=== PATIENT | female | born 1970 | race Caucasian/White ===

== ENCOUNTER 2021-11-29 07:59 | Inpatient (IN) | payer BC ==
--- NOTE | 2021-11-29 08:04 | ERPHSYRPT ---
- History of Present Illness Time Seen by Provider: 11/29/21 08:04 Source: patient Exam Limitations: clinical condition Physician History: This is a morbidly obese 51-year-old insulin-dependent diabetic female with hypothyroidism and depression and who states that her insulin pump is not working. She, for the last several days, has known that her insulin pump has not been working. She has insulin at home but states that she was to fatigue to get up and obtain it and states that her would not bring it to her. Her condition worsened in terms of vomiting, worsening weakness and now with confusion. Patient was brought into the emergency department via EMS. Her Accu-Chek read "high". Timing/Duration: day(s) (Several days) Severity: moderate Associated Symptoms: nausea, vomiting, shortness of breath, weakness Allergies/Adverse Reactions: No Known Drug Allergies Allergy (Verified 11/29/21 08:13) Home Medications: Hydrocodone/Acetaminophen [Hydrocodone-Acetamin 5-325 mg] 1 tab PO Q6H 11/29/21 [History] Insulin Lispro [Humalog] 0 unit SQ UD 11/29/21 [History] Levothyroxine Sodium [Euthyrox] 200 mcg PO DAILY 11/29/21 [History] Paroxetine HCl 20 mg [Paxil 20 MG] 20 mg PO DAILY 11/29/21 [History] Semaglutide [Ozempic] 0.5 mg SQ WEEKLY 11/29/21 [History] Travel Risk - International Travel Have you traveled outside of the country in past 3 weeks: No - Coronavirus Screening Are you exhibiting any of the following symptoms?: No Close contact with a COVID-19 positive Pt in past 14-21 Days: No - Review of Systems Constitutional: Lethargy, Weakness Eyes: No Symptoms Ears, Nose, & Throat: No Symptoms Respiratory: No Symptoms Cardiac: No Symptoms Abdominal/Gastrointestinal: Nausea, Vomiting, No Abdominal Pain Genitourinary Symptoms: No Symptoms Musculoskeletal: No Symptoms Skin: No Symptoms Neurological: No Symptoms Psychological: No Symptoms Endocrine: No Symptoms Hematologic/Lymphatic: No Symptoms Immunological/Allergic: No Symptoms All Other Systems: Reviewed and Negative - Past Medical History Pertinent Past Medical History: Yes - Past Surgical History Past Surgical History: Yes - Nursing Vital Signs Nursing Vital Signs: Initial Vital Signs Temperature 97.7 F 11/29/21 08:03 Pulse Rate 143 H 11/29/21 08:03 Blood Pressure 140/73 11/29/21 08:03 O2 Sat by Pulse Oximetry 100 11/29/21 08:03 Pain Scale Pain Intensity 0 - Physical Exam General Appearance: moderate distress, alert, lethargy, obese Eye Exam: PERRL/EOMI, eyes nml inspection Ears, Nose, Throat Exam: dry mucous membranes Neck Exam: normal inspection, non-tender, supple, full range of motion Respiratory Exam: normal breath sounds, lungs clear, respiratory distress, airway intact, No chest tenderness Cardiovascular Exam: tachycardia Gastrointestinal/Abdomen Exam: soft, normal bowel sounds Pelvic Exam: not done Rectal Exam: not done Back Exam: normal inspection, normal range of motion, No CVA tenderness, No vertebral tenderness Extremity Exam: normal inspection, normal range of motion, pelvis stable Neurologic Exam: cooperative, 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 no acute ischemic changes) Ordered Tests: Active Orders 24 hr Category Date Time Status [employer] STAT Care 11/29/21 08:24 Active EKG-ER Only STAT Care 11/29/21 08:24 Active Mejia [Catheter-[place] Mejia] STAT Care 11/29/21 08:26 Active IV Insertion STAT Care 11/29/21 08:24 Active POCT Glucose Check STAT Care 11/29/21 11:00 Active Pulse Oximetry (ED) STAT Care 11/29/21 08:24 Active ABG [ARTERIAL BLOOD GASES] Routine Lab 11/29/21 17:00 Ordered ABG [ARTERIAL BLOOD GASES] Routine Lab 11/30/21 05:00 Ordered ARTERIAL BLOOD GASES Urgent Lab 11/29/21 10:56 Completed CBC W DIFF Stat Lab 11/29/21 08:57 Results CMP Stat Lab 11/29/21 08:57 Completed Lactic Acid Urgent Lab 11/29/21 08:57 Completed Lactic Acid Urgent Lab 11/29/21 10:56 Completed MAGNESIUM Stat Lab 11/29/21 08:57 Completed Manual Differential NC Stat Lab 11/29/21 08:57 Results POCT GLUCOSE Stat Lab 11/29/21 10:59 Completed POCT GLUCOSE Stat Lab 11/29/21 12:43 Completed Pathologist Review Stat Lab 11/29/21 08:57 Results T4 (Thyroxine) Stat Lab 11/29/21 08:57 Completed TROPONIN Q3H Lab 11/29/21 08:57 Completed TROPONIN Q3H Lab 11/29/21 13:15 Ordered TROPONIN Q3H Lab 11/29/21 16:15 Ordered TROPONIN Q3H Lab 11/29/21 19:15 Ordered TROPONIN Q3H Lab 11/29/21 22:15 Ordered TSH [TSH, 3RD Generation] Stat Lab 11/29/21 08:57 Completed UA W/RFX UR CULTURE Stat Lab 11/29/21 09:36 Completed VBG [VENOUS BLOOD GAS] Stat Lab 11/29/21 09:07 Completed Medication Summary Discontinued Medications Generic Name Dose Route Start Last Admin Trade Name Freq PRN Reason Stop Dose Admin Sodium Chloride 1,000 mls @ 999 mls/hr 11/29/21 08:24 11/29/21 09:56 Sodium Chloride 0.9% 1000 Ml IV 11/29/21 09:24 Infused .Q1H1M STA Infusion Sodium Chloride Confirm 11/29/21 08:45 Sodium Chloride 0.9% 1000 Ml Administered 11/29/21 08:46 Dose 1,000 mls @ ud .ROUTE .STK-MED ONE Meropenem 1 g/ Sodium Chloride 100 mls @ 200 mls/hr 11/29/21 09:06 11/29/21 09:21 IV 11/29/21 09:35 200 mls/hr STAT ONE Administration Sodium Chloride Confirm 11/29/21 09:18 Sodium Chloride 100ml Mini-Bag Plus Administered 11/29/21 09:19 Dose 100 mls @ ud IV .STK-MED ONE Sodium Chloride 1,000 mls @ 999 mls/hr 11/29/21 10:10 Sodium Chloride 0.9% 1000 Ml IV 11/29/21 11:10 .Q1H1M STA Sodium Chloride Confirm 11/29/21 10:12 Sodium Chloride 0.9% 1000 Ml Administered 11/29/21 10:13 Dose 1,000 mls @ ud .ROUTE .STK-MED ONE Insulin Human Regular 100 101 mls @ ud 11/29/21 11:08 units/ Sodium Chloride IV 11/29/21 11:09 .STK-MED ONE Sodium Chloride Confirm 11/29/21 11:11 Sodium Chloride 0.9% 1000 Ml Administered 11/29/21 11:12 Dose 1,000 mls @ ud .ROUTE .STK-MED ONE Insulin Human Regular 20 unit 11/29/21 09:14 11/29/21 09:24 Insulin Regular, Human 1 Unit IV 11/29/21 09:15 20 unit STAT ONE Administration Insulin Human Regular Confirm 11/29/21 09:18 Insulin Regular, Human 1 Unit Administered 11/29/21 09:19 Dose 20 unit .ROUTE .STK-MED ONE Insulin Human Regular Confirm 11/29/21 11:11 Insulin Regular, Human 1 Unit Administered 11/29/21 11:12 Dose 10 unit .ROUTE .STK-MED ONE Meropenem Confirm 11/29/21 09:18 Meropenem 1 Gm Vial Administered 11/29/21 09:19 Dose 1 g IV .STK-MED ONE Metoprolol Tartrate 5 mg 11/29/21 09:12 11/29/21 09:21 Metoprolol Tartrate 5 Mg/5 Ml Injection IV 11/29/21 09:13 5 mg STAT ONE Administration Metoprolol Tartrate Confirm 11/29/21 09:18 Metoprolol Tartrate 5 Mg/5 Ml Injection Administered 11/29/21 09:19 Dose 5 mg IV .STK-MED ONE Ondansetron HCl 4 mg 11/29/21 08:24 Ondansetron Hcl 4 Mg/2 Ml Vial IV 11/29/21 08:25 STAT ONE Sodium Bicarbonate 50 meq 11/29/21 09:05 11/29/21 09:23 Sodium Bicarbonate 1 Meq/Ml 50ml Syringe IV 11/29/21 09:06 50 meq STAT ONE Administration Sodium Bicarbonate Confirm 11/29/21 09:18 Sodium Bicarbonate 1 Meq/Ml 50ml Vial Administered 11/29/21 09:19 Dose 50 meq .ROUTE .STK-MED ONE Sodium Bicarbonate Confirm 11/29/21 09:23 Sodium Bicarbonate 1 Meq/Ml 50ml Syringe Administered 11/29/21 09:24 Dose 50 meq IV .STK-MED ONE Lab/Rad Data: Laboratory Result Diagrams 11/29/21 08:57 11/29/21 08:57 Laboratory Results 01/20/22 01/20/22 01/20/22 Range/Units 12:43 10:59 10:56 WBC (4.0-10.5) K/mm3 RBC (4.1-5.4) M/mm3 Hgb (12.0-16.0) gm/dl Hct (35-47) % MCV (78-100) fl MCH (26-32) pg MCHC (32-36) g/dl RDW (11.5-14.0) % Plt Count (150-450) K/mm3 MPV (7.5-11.0) fl Segmented Neutrophils (36.0-66.0) % Band Neutrophils (0.0-2.0) % Lymphocytes (Manual) (24-44) % Monocytes (Manual) (0.0-12.0) % Toxic Granulation Platelet Estimate (NORMAL) RBC Morphology Anisocytosis Smear Path Review Puncture Site RIGHT RADIAL pCO2 15 L* (35-45) mmHg pO2 124 H* (75-100) mmHg pO2/FiO2 Ratio % Base Excess -23.8 L (-2.0-2.0) O2 Saturation 97.3 (94-100) g/dF ABG pH 7.07 L* (7.35-7.45) ABG HCO3 4.3 L* (22-28) ABG O2 Sat (Measured) 98.9 (95-100) % Bobby Test YES VBG pH (7.32-7.42) VBG pCO2 at Pat Temp (42-55) mm/Hg VBG pO2 at Pat Temp (25-40) mm/Hg VBG HCO3 (22-28) meq/L VBG O2 Sat (Nain) (95-100) VBG Base Excess (-2.0-2.0) VBG Hemoglobin VBG Carboxyhemoglobin (0.0-6.9) % T HGB A-a Gradient 7 a/A Ratio 0.95 Hemoglobin 14.0 Carboxyhemoglobin 0.5 (0.0-6.9) % THgb Methemoglobin 1.0 L (1.4-1.5) % POC Potassium (3.5-5.1) Temperature 37.0 C POC O2 Flow Rate 21 % Sodium (137-145) mmol/L Potassium 4.1 (3.5-5.1) mmol/L Chloride (98-107) mmol/L Carbon Dioxide (22-30) mmol/L BUN (7-17) mg/dL Creatinine (0.52-1.04) mg/dL Estimated GFR ML/MIN Glucose (74-106) mg/dL POC Glucometer 427 H 520 H* (50 to 500) mg/dL Lactic Acid 4.1 H (0.4-2.0) Calcium (8.4-10.2) mg/dL Magnesium (1.6-2.3) mg/dL Total Bilirubin (0.2-1.3) mg/dL AST (14-36) U/L ALT (0-35) U/L Alkaline Phosphatase (38-126) U/L Troponin I (0.000-0.034) ng/mL Serum Total Protein (6.3-8.2) g/dL Albumin (3.5-5.0) g/dL Thyroxine (T4) (5.53-10.96) ug/dL TSH 3rd Generation (0.47-4.68) mIU/L Urine Color (YELLOW) Urine Appearance (CLEAR) Urine pH (5-6) Ur Specific [place] (1.005-1.025) Urine Protein (Negative) Urine Ketones (NEGATIVE) Urine Blood (0-5) Mao/ul Urine Nitrite (NEGATIVE) Urine Bilirubin (NEGATIVE) Urine Urobilinogen (0-1) mg/dL Ur Leukocyte Esterase (NEGATIVE) Urine WBC (Auto) (0-5) /HPF Urine RBC (Auto) (0-2) /HPF U Epithel Cells (Auto) (FEW) /HPF Urine Bacteria (Auto) (NEGATIVE) /HPF Urine Mucus (Auto) (NEGATIVE) /HPF Urine Culture Reflexed (NO) Urine Glucose (NEGATIVE) mg/dL Influenza Type A Ag (NEGATIVE) Influenza Type B Ag (NEGATIVE) RSV (PCR) (Negative) SARS-CoV-2 (PCR) (NEGATIVE) 11/29/21 11/29/21 11/29/21 Range/Units 10:51 09:36 09:07 WBC (4.0-10.5) K/mm3 RBC (4.1-5.4) M/mm3 Hgb (12.0-16.0) gm/dl Hct (35-47) % MCV (78-100) fl MCH (26-32) pg MCHC (32-36) g/dl RDW (11.5-14.0) % Plt Count (150-450) K/mm3 MPV (7.5-11.0) fl Segmented Neutrophils (36.0-66.0) % Band Neutrophils (0.0-2.0) % Lymphocytes (Manual) (24-44) % Monocytes (Manual) (0.0-12.0) % Toxic Granulation Platelet Estimate (NORMAL) RBC Morphology Anisocytosis Smear Path Review Puncture Site pCO2 (35-45) mmHg pO2 (75-100) mmHg pO2/FiO2 Ratio 21.0 % Base Excess (-2.0-2.0) O2 Saturation (94-100) g/dF ABG pH (7.35-7.45) ABG HCO3 (22-28) ABG O2 Sat (Measured) (95-100) % Bobby Test VBG pH 6.83 L* (7.32-7.42) VBG pCO2 at Pat Temp 29 L (42-55) mm/Hg VBG pO2 at Pat Temp 64 H (25-40) mm/Hg VBG HCO3 4.8 L* (22-28) meq/L VBG O2 Sat (Nain) 89.7 L (95-100) VBG Base Excess -28.7 L (-2.0-2.0) VBG Hemoglobin 15.8 VBG Carboxyhemoglobin 5.4 (0.0-6.9) % T HGB A-a Gradient a/A Ratio Hemoglobin Carboxyhemoglobin (0.0-6.9) % THgb Methemoglobin (1.4-1.5) % POC Potassium 5.4 H (3.5-5.1) Temperature C POC O2 Flow Rate % Sodium (137-145) mmol/L Potassium (3.5-5.1) mmol/L Chloride (98-107) mmol/L Carbon Dioxide (22-30) mmol/L BUN (7-17) mg/dL Creatinine (0.52-1.04) mg/dL Estimated GFR ML/MIN Glucose (74-106) mg/dL POC Glucometer (50 to 500) mg/dL Lactic Acid (0.4-2.0) Calcium (8.4-10.2) mg/dL Magnesium (1.6-2.3) mg/dL Total Bilirubin (0.2-1.3) mg/dL AST (14-36) U/L ALT (0-35) U/L Alkaline Phosphatase (38-126) U/L Troponin I (0.000-0.034) ng/mL Serum Total Protein (6.3-8.2) g/dL Albumin (3.5-5.0) g/dL Thyroxine (T4) (5.53-10.96) ug/dL TSH 3rd Generation (0.47-4.68) mIU/L Urine Color YELLOW (YELLOW) Urine Appearance SLIGHTLY CLOUDY (CLEAR) Urine pH 5.0 (5-6) Ur Specific [place] 1.020 (1.005-1.025) Urine Protein 30 (Negative) Urine Ketones MODERATE (NEGATIVE) Urine Blood MODERATE (0-5) Mao/ul Urine Nitrite NEGATIVE (NEGATIVE) Urine Bilirubin NEGATIVE (NEGATIVE) Urine Urobilinogen NEGATIVE (0-1) mg/dL Ur Leukocyte Esterase NEGATIVE (NEGATIVE) Urine WBC (Auto) 0-2 (0-5) /HPF Urine RBC (Auto) 0-2 (0-2) /HPF U Epithel Cells (Auto) RARE (FEW) /HPF Urine Bacteria (Auto) FEW (NEGATIVE) /HPF Urine Mucus (Auto) SLIGHT (NEGATIVE) /HPF Urine Culture Reflexed NO (NO) Urine Glucose >=500 (NEGATIVE) mg/dL Influenza Type A Ag NEGATIVE (NEGATIVE) Influenza Type B Ag NEGATIVE (NEGATIVE) RSV (PCR) NEGATIVE (Negative) SARS-CoV-2 (PCR) NEGATIVE (NEGATIVE) 11/29/21 11/29/21 11/29/21 Range/Units 08:57 08:57 08:57 WBC (4.0-10.5) K/mm3 RBC (4.1-5.4) M/mm3 Hgb (12.0-16.0) gm/dl Hct (35-47) % MCV (78-100) fl MCH (26-32) pg MCHC (32-36) g/dl RDW (11.5-14.0) % Plt Count (150-450) K/mm3 MPV (7.5-11.0) fl Segmented Neutrophils (36.0-66.0) % Band Neutrophils (0.0-2.0) % Lymphocytes (Manual) (24-44) % Monocytes (Manual) (0.0-12.0) % Toxic Granulation Platelet Estimate (NORMAL) RBC Morphology Anisocytosis Smear Path Review Puncture Site pCO2 (35-45) mmHg pO2 (75-100) mmHg pO2/FiO2 Ratio % Base Excess (-2.0-2.0) O2 Saturation (94-100) g/dF ABG pH (7.35-7.45) ABG HCO3 (22-28) ABG O2 Sat (Measured) (95-100) % Bobby Test VBG pH (7.32-7.42) VBG pCO2 at Pat Temp (42-55) mm/Hg VBG pO2 at Pat Temp (25-40) mm/Hg VBG HCO3 (22-28) meq/L VBG O2 Sat (Nain) (95-100) VBG Base Excess (-2.0-2.0) VBG Hemoglobin VBG Carboxyhemoglobin (0.0-6.9) % T HGB A-a Gradient a/A Ratio Hemoglobin Carboxyhemoglobin (0.0-6.9) % THgb Methemoglobin (1.4-1.5) % POC Potassium (3.5-5.1) Temperature C POC O2 Flow Rate % Sodium (137-145) mmol/L Potassium (3.5-5.1) mmol/L Chloride (98-107) mmol/L Carbon Dioxide (22-30) mmol/L BUN (7-17) mg/dL Creatinine (0.52-1.04) mg/dL Estimated GFR ML/MIN Glucose (74-106) mg/dL POC Glucometer (50 to 500) mg/dL Lactic Acid (0.4-2.0) Calcium (8.4-10.2) mg/dL Magnesium (1.6-2.3) mg/dL Total Bilirubin (0.2-1.3) mg/dL AST (14-36) U/L ALT (0-35) U/L Alkaline Phosphatase (38-126) U/L Troponin I < 0.012 (0.000-0.034) ng/mL Serum Total Protein (6.3-8.2) g/dL Albumin (3.5-5.0) g/dL Thyroxine (T4) 14.4 H (5.53-10.96) ug/dL TSH 3rd Generation 0.567 (0.47-4.68) mIU/L Urine Color (YELLOW) Urine Appearance (CLEAR) Urine pH (5-6) Ur Specific [place] (1.005-1.025) Urine Protein (Negative) Urine Ketones (NEGATIVE) Urine Blood (0-5) Mao/ul Urine Nitrite (NEGATIVE) Urine Bilirubin (NEGATIVE) Urine Urobilinogen (0-1) mg/dL Ur Leukocyte Esterase (NEGATIVE) Urine WBC (Auto) (0-5) /HPF Urine RBC (Auto) (0-2) /HPF U Epithel Cells (Auto) (FEW) /HPF Urine Bacteria (Auto) (NEGATIVE) /HPF Urine Mucus (Auto) (NEGATIVE) /HPF Urine Culture Reflexed (NO) Urine Glucose (NEGATIVE) mg/dL Influenza Type A Ag (NEGATIVE) Influenza Type B Ag (NEGATIVE) RSV (PCR) (Negative) SARS-CoV-2 (PCR) (NEGATIVE) 11/29/21 11/29/21 11/29/21 Range/Units 08:57 08:57 08:57 WBC 30.1 H* (4.0-10.5) K/mm3 RBC 5.08 (4.1-5.4) M/mm3 Hgb 15.4 (12.0-16.0) gm/dl Hct 50.0 H (35-47) % MCV 98.4 (78-100) fl MCH 30.3 (26-32) pg MCHC 30.8 L (32-36) g/dl RDW 13.2 (11.5-14.0) % Plt Count 436 (150-450) K/mm3 MPV 10.5 (7.5-11.0) fl Segmented Neutrophils 84 H (36.0-66.0) % Band Neutrophils 2 (0.0-2.0) % Lymphocytes (Manual) 9 L (24-44) % Monocytes (Manual) 5 (0.0-12.0) % Toxic Granulation 1+ Platelet Estimate NORMAL (NORMAL) RBC Morphology ABNORMAL Anisocytosis 1+ Smear Path Review Pending Puncture Site pCO2 (35-45) mmHg pO2 (75-100) mmHg pO2/FiO2 Ratio % Base Excess (-2.0-2.0) O2 Saturation (94-100) g/dF ABG pH (7.35-7.45) ABG HCO3 (22-28) ABG O2 Sat (Measured) (95-100) % Bobby Test VBG pH (7.32-7.42) VBG pCO2 at Pat Temp (42-55) mm/Hg VBG pO2 at Pat Temp (25-40) mm/Hg VBG HCO3 (22-28) meq/L VBG O2 Sat (Nain) (95-100) VBG Base Excess (-2.0-2.0) VBG Hemoglobin VBG Carboxyhemoglobin (0.0-6.9) % T HGB A-a Gradient a/A Ratio Hemoglobin Carboxyhemoglobin (0.0-6.9) % THgb Methemoglobin (1.4-1.5) % POC Potassium (3.5-5.1) Temperature C POC O2 Flow Rate % Sodium 145 (137-145) mmol/L Potassium 5.2 H (3.5-5.1) mmol/L Chloride 108 H (98-107) mmol/L Carbon Dioxide < 5 L* (22-30) mmol/L BUN 42 H (7-17) mg/dL Creatinine 2.02 H (0.52-1.04) mg/dL Estimated GFR 27.5 ML/MIN Glucose 698 H* (74-106) mg/dL POC Glucometer (50 to 500) mg/dL Lactic Acid 7.4 H (0.4-2.0) Calcium 9.7 (8.4-10.2) mg/dL Magnesium 2.9 H (1.6-2.3) mg/dL Total Bilirubin 1.90 H (0.2-1.3) mg/dL AST 19 (14-36) U/L ALT 25 (0-35) U/L Alkaline Phosphatase 211 H (38-126) U/L Troponin I (0.000-0.034) ng/mL Serum Total Protein 8.6 H (6.3-8.2) g/dL Albumin 5.0 (3.5-5.0) g/dL Thyroxine (T4) (5.53-10.96) ug/dL TSH 3rd Generation (0.47-4.68) mIU/L Urine Color (YELLOW) Urine Appearance (CLEAR) Urine pH (5-6) Ur Specific [place] (1.005-1.025) Urine Protein (Negative) Urine Ketones (NEGATIVE) Urine Blood (0-5) Mao/ul Urine Nitrite (NEGATIVE) Urine Bilirubin (NEGATIVE) Urine Urobilinogen (0-1) mg/dL Ur Leukocyte Esterase (NEGATIVE) Urine WBC (Auto) (0-5) /HPF Urine RBC (Auto) (0-2) /HPF U Epithel Cells (Auto) (FEW) /HPF Urine Bacteria (Auto) (NEGATIVE) /HPF Urine Mucus (Auto) (NEGATIVE) /HPF Urine Culture Reflexed (NO) Urine Glucose (NEGATIVE) mg/dL Influenza Type A Ag (NEGATIVE) Influenza Type B Ag (NEGATIVE) RSV (PCR) (Negative) SARS-CoV-2 (PCR) (NEGATIVE) - Progress Progress: improved Progress Note: 11/29/21 10:55 Clinically, the patient is more awake and alert and states that she is feeling better. Medical decision making: This patient has diabetic ketoacidosis. She requires admission. I spoke with Dr. Sawyer who is covering for unattached patients. He agrees. We will place the patient in intensive care unit and follow our DKA protocol including intravenous fluids and insulin drip and repeat labs. Counseled pt/family regarding: lab results, diagnosis - Departure Departure Disposition: In-patient Admission Clinical Impression: Diabetic ketoacidosis, Leukocytosis, Tachycardia Condition: Fair Critical Care Time: Yes Critical Care Time(excluding separately billable procedures): Critical 30-74 mins (40 minutes) Referrals: DOCTOR,NO FAMILY [NON-STAFF PHY W/O PRIVILEGES] - Follow up/PCP as directed
[2021-11-29] MEDS ORDERED: Zofran 4 MG/2 ML VIAL IV ONE (08:24)
[2021-11-29] MEDS ORDERED: Sodium Chloride 0.9% 1000 ML 1,000 ML IV STA ×2 (08:24→10:10)
[2021-11-29] MEDS ORDERED: Sodium Chloride 0.9% 1000 ML 1,000 ML ONE ×3 (08:45→11:11)
[2021-11-29 09:02] LABS: Hemoglobin 15.4 gm/dl (12.0-16.0); Mean Cell Volume 98.4 fl (78-100); Mean Corpuscular Hemoglobin 30.3 pg (26-32); Mean Corpuscular Hgb Concent. 30.8 g/dl (32-36); Mean Platelet Volume 10.5 fl (7.5-11.0); Platelet Count 436 K/mm3 (150-450); Red Blood Count 5.08 M/mm3 (4.1-5.4); Red Cell Distribution Width 13.2 % (11.5-14.0)
[2021-11-29 09:04] LABS: White Blood Count 30.1 K/mm3 (4.0-10.5)
[2021-11-29] MEDS ORDERED: SODIUM BICARBONATE 50 MEQ/50 ML ABBOJECT IV ONE ×2 (09:05→09:23)
[2021-11-29] MEDS ORDERED: Merrem 1 GM 1 G in Sodium Chloride 100ML MINI-BAG PLUS 100 ML IV ONE (09:06)
[2021-11-29 09:09] LABS: VBG BASE EXCESS -28.7 (-2.0-2.0); VBG CARBOXYHEMOGLOBIN 5.4 % T HGB (0.0-6.9); VBG HCO3- 4.8 meq/L (22-28); VBG HEMOGLOBIN 15.8; VBG O2 SATURATION 89.7 (95-100); VBG POTASSIUM 5.4 (3.5-5.1)
[2021-11-29 09:10] LABS: VBG pH 6.83 (7.32-7.42)
[2021-11-29 09:11] LABS: ALKALINE PHOSPHATASE 211 U/L (38-126); BLOOD UREA NITROGEN 42 mg/dL (7-17); CHLORIDE 108 mmol/L (98-107); Calcium 9.7 mg/dL (8.4-10.2); Creatinine 1 2.02 mg/dL (0.52-1.04); EST GLOMERULAR FILTRATION RATE 27.5 ML/MIN; MAGNESIUM 2.9 mg/dL (1.6-2.3); Potassium 5.2 mmol/L (3.5-5.1); SGOT/AST 19 U/L (14-36); SGPT/ALT 25 U/L (0-35); SODIUM 145 mmol/L (137-145); Total Protein 8.6 g/dL (6.3-8.2)
[2021-11-29] MEDS ORDERED: LOPRESSOR 5 MG/5 ML INJECTION IV ONE ×2 (09:12→09:18)
[2021-11-29] MEDS ORDERED: HUMULIN R IV ONE (09:14)
[2021-11-29 09:15] LABS: Carbon Dioxide < 5 mmol/L (22-30)
[2021-11-29] MEDS ORDERED: Sodium Chloride 100ML MINI-BAG PLUS 100 ML IV ONE (09:18)
[2021-11-29] MEDS ORDERED: Sodium Bicarbonate 50 MEQ/50 ML VIAL ONE (09:18)
[2021-11-29] MEDS ORDERED: HUMULIN R ONE ×2 (09:18→11:11)
[2021-11-29] MEDS ORDERED: Merrem 1 GM IV ONE (09:18)
[2021-11-29 09:24] LABS: ANISOCYTOSIS 1+; BAND 2 % (0.0-2.0); Lymphocytes 9 % (24-44); Monocyte 5 % (0.0-12.0); Neutrophils 84 % (36.0-66.0); Platelet Estimate NORMAL (NORMAL); Total Cells Counted 100; Toxic Granulation 1+
[2021-11-29 09:41] LABS: Glucose 698 mg/dL (74-106)
[2021-11-29 10:09] LABS: Appearance SLIGHTLY CLOUDY (CLEAR); Bilirubin NEGATIVE (NEGATIVE); Blood MODERATE Ery/ul (0-5); Glucose >=500 mg/dL (NEGATIVE); Ketones MODERATE (NEGATIVE); Leukocyte Esterase NEGATIVE (NEGATIVE); Mucus SLIGHT /HPF (NEGATIVE); Nitrite NEGATIVE (NEGATIVE); Protein,Urine Dip 30 (Negative); RBC 0-2 /HPF (0-2); Urobilinogen NEGATIVE mg/dL (0-1)
[2021-11-29 10:10] LABS: Bacteria FEW /HPF (NEGATIVE); Epithelial Cells RARE /HPF (FEW); WBC 0-2 /HPF (0-5)
[2021-11-29 10:58] LABS: A-aADO2 7; ABG POTASSIUM 4.1 (3.5-5.1); ARTERIAL BLD GAS O2 SATURATION 98.9 % (95-100); ARTERIAL BLOOD GAS BASE EXCESS -23.8 (-2.0-2.0); ARTERIAL BLOOD GAS FIO2 21 %; ARTERIAL BLOOD GAS PCO2 15 mmHg (35-45); ARTERIAL BLOOD GAS PO2 124 mmHg (75-100); ARTERIAL BLOOD GAS pH 7.07 (7.35-7.45); CARBOXYHEMOGLOBIN 0.5 % THgb (0.0-6.9); HCO3- 4.3 (22-28); HGB O2 SAT 97.3 g/dF (94-100); Lactic Acid 4.1 (0.4-2.0)
[2021-11-29 10:59] LABS: ABG SITE RIGHT RADIAL; ALLEN TEST OK? YES
[2021-11-29] MEDS ORDERED: HUMULIN R INSULIN (FOR DRIPS)** 100 UNITS in Sodium Chloride 0.9% 100 ML BAG 100 ML IV ONE (11:08)
[2021-11-29 11:33] LABS: INFLUENZA A NEGATIVE (NEGATIVE); INFLUENZA B NEGATIVE (NEGATIVE); RESPIRATORY SYNCTIAL VIRUS NEGATIVE (Negative); SARS-CoV-2 Xpert Express NEGATIVE (NEGATIVE)
[2021-11-29] MEDS ORDERED: TYLENOL 325 MG PO PRN (14:38)
[2021-11-29] MEDS ORDERED: Zofran 4 MG/2 ML VIAL IV PRN (14:38)
[2021-11-29] MEDS ORDERED: HUMULIN R 100 UNIT in Sodium Chloride 0.9% 100 ML BAG 100 ML IV PRN (15:01)
[2021-11-29] MEDS: Sodium Chloride 0.9% 1000 ML 1,000 ML IV SCH ×2 (15:08→19:37)
[2021-11-29 17:06] LABS: Potassium 5.1 mmol/L (3.5-5.1)
[2021-11-29 17:37] LABS: ANION GAP 20.4 MEQ/L (5-15); Calcium 8.6 mg/dL (8.4-10.2); Creatinine 1 1.22 mg/dL (0.52-1.04); EST GLOMERULAR FILTRATION RATE 49.2 ML/MIN
[2021-11-29 17:42] LABS: A-aADO2 20; ABG HEMOGLOBIN 12.7; ABG SITE LEFT BRACHIAL; ARTERIAL BLD GAS O2 SATURATION 98.4 % (95-100); ARTERIAL BLOOD GAS BASE EXCESS -11.8 (-2.0-2.0); ARTERIAL BLOOD GAS FIO2 21 %; ARTERIAL BLOOD GAS PCO2 24 mmHg (35-45); ARTERIAL BLOOD GAS PO2 100 mmHg (75-100); ARTERIAL BLOOD GAS pH 7.32 (7.35-7.45); CARBOXYHEMOGLOBIN 0.6 % THgb (0.0-6.9); HCO3- 12.4 (22-28); HGB O2 SAT 96.9 g/dF (94-100); Methhemoglobin 0.9 % (1.4-1.5)
[2021-11-29] MEDS ORDERED: SYNTHROID 100 MCG PO SCH (18:00)
[2021-11-29] MEDS: NORCO 5/325 MG PO SCH (18:25)
[2021-11-29] MEDS: ENOXAPARIN SODIUM SQ SCH (18:27)
[2021-11-29] MEDS: Paxil 20 MG PO SCH (18:28)
[2021-11-29 21:59] LABS: ANION GAP 13.4 MEQ/L (5-15); Calcium 8.1 mg/dL (8.4-10.2); Creatinine 1 1.1 mg/dL (0.52-1.04); EST GLOMERULAR FILTRATION RATE 55.4 ML/MIN
[2021-11-29] MEDS: D5W/0.45NS W/ 20mEq KCl 1000 ML 1,000 ML IV SCH (22:01)
[2021-11-29 22:02] LABS: Potassium 3.7 mmol/L (3.5-5.1)
[2021-11-30] MEDS: NORCO 5/325 MG PO SCH ×6 (00:29→23:17)
[2021-11-30 01:07] LABS: ANION GAP 12.4 MEQ/L (5-15); BLOOD UREA NITROGEN 29 mg/dL (7-17); CHLORIDE 117 mmol/L (98-107); Calcium 8.1 mg/dL (8.4-10.2); Carbon Dioxide 18 mmol/L (22-30); Creatinine 1 0.97 mg/dL (0.52-1.04); EST GLOMERULAR FILTRATION RATE > 60.0 ML/MIN; Glucose 166 mg/dL (74-106); Potassium 3.5 mmol/L (3.5-5.1); SODIUM 144 mmol/L (137-145)
[2021-11-30] MEDS: D5W/0.45NS W/ 20mEq KCl 1000 ML 1,000 ML IV SCH (04:31)
[2021-11-30 05:41] LABS: A-aADO2 27; ABG HEMOGLOBIN 11.6; ABG POTASSIUM 3.8 (3.5-5.1); ABG SITE RIGHT BRACHIAL; ARTERIAL BLD GAS O2 SATURATION 98.9 % (95-100); ARTERIAL BLOOD GAS BASE EXCESS -6.6 (-2.0-2.0); ARTERIAL BLOOD GAS FIO2 21 %; ARTERIAL BLOOD GAS PCO2 29 mmHg (35-45); ARTERIAL BLOOD GAS PO2 86 mmHg (75-100); ARTERIAL BLOOD GAS pH 7.38 (7.35-7.45); CARBOXYHEMOGLOBIN 1.2 % THgb (0.0-6.9); HCO3- 17.2 (22-28); Methhemoglobin 0.7 % (1.4-1.5)
[2021-11-30 05:49] LABS: Hematocrit 34.9 % (35-47); Hemoglobin 11.4 gm/dl (12.0-16.0); Mean Cell Volume 92.3 fl (78-100); Mean Corpuscular Hemoglobin 30.2 pg (26-32); Mean Corpuscular Hgb Concent. 32.7 g/dl (32-36); Mean Platelet Volume 9.8 fl (7.5-11.0); Platelet Count 253 K/mm3 (150-450); Red Blood Count 3.78 M/mm3 (4.1-5.4); Red Cell Distribution Width 13.2 % (11.5-14.0)
[2021-11-30 06:31] LABS: Lymphocytes 10 % (24-44); Monocyte 7 % (0.0-12.0); Neutrophils 83 % (36.0-66.0); Total Cells Counted 100
[2021-11-30 06:34] LABS: ANISOCYTOSIS 1+; Platelet Estimate NORMAL (NORMAL); Poikilocytosis 1+
[2021-11-30 06:38] LABS: ANION GAP 12.8 MEQ/L (5-15); BLOOD UREA NITROGEN 25 mg/dL (7-17); CHLORIDE 114 mmol/L (98-107); Calcium 8.1 mg/dL (8.4-10.2); Carbon Dioxide 20 mmol/L (22-30); Creatinine 1 0.88 mg/dL (0.52-1.04); EST GLOMERULAR FILTRATION RATE > 60.0 ML/MIN; Glucose 202 mg/dL (74-106); Potassium 3.7 mmol/L (3.5-5.1); SODIUM 143 mmol/L (137-145)
[2021-11-30] MEDS: Sodium Chloride 0.9% 1000 ML 1,000 ML IV SCH (07:19)
[2021-11-30] MEDS ORDERED: CHLORASEPTIC SPRAY 180 ML PO PRN (08:28)
[2021-11-30] MEDS: ENOXAPARIN SODIUM SQ SCH (08:49)
[2021-11-30] MEDS: Paxil 20 MG PO SCH (08:49)
[2021-11-30] MEDS: SYNTHROID 150 MCG PO SCH (08:49)
[2021-11-30] MEDS: HUMALOG SQ PRN ×2 (08:50→12:35)
[2021-11-30] MEDS: SODIUM CHLORIDE 0.45% W/ 20 mEq KCL 1,000 ML IV SCH ×3 (08:50→23:15)
--- NOTE | 2021-11-30 09:16 | HP ---
CHIEF COMPLAINT: Vomiting and diarrhea, history of diabetes mellitus. HISTORY OF PRESENT ILLNESS: The patient is a 51-year-old white female who reportedly got sick after her insulin pump stopped working. She did not give herself any insulin after that. She continued to get worse with vomiting and diarrhea and presented to the emergency room. Her pH at that time was in the 6.8 range. She resuscitated with IV fluids and began improving after IV insulin. The patient otherwise was getting so weak that she could not get up and get her insulin and her would not bring it to her apparently. PAST MEDICAL/SURGICAL HISTORY: Significant for diabetes. She was told that she is type 1 three years ago. Obesity. She has apparently hypothyroidism for which she is on 200 mcg of levothyroxine daily. She also apparently has a pain management physician as she is taking hydrocodone 5/325 every six hours on a PRN basis. HOME MEDICATIONS: Levothyroxine 200 mcg daily, hydrocodone 5/325 every six hours on a PRN basis. Her other medications include Humalog, levothyroxine, paroxetine 20 mg a day, Ozempic 0.5 mg subcu weekly. ALLERGIES: NKDA. PHYSICAL EXAMINATION: VITAL SIGNS: The patient's vital signs on admission showed her temperature to be 97.7F, pulse 143, blood pressure 140/73 and O2 saturation 100%. HEENT: Normocephalic, atraumatic. Pupils equal round reactive to light. Extraocular movements intact. Oropharynx is dry and did smell of acetone. NECK: Supple without lymphadenopathy, thyromegaly or JVD. CHEST: Clear to auscultation. HEART: Regular rate and rhythm presently without murmurs, rubs or gallops heard. ABDOMEN: Diffusely tender but no palpable masses were felt. EXTREMITIES: Without cyanosis, clubbing or edema. NEUROLOGIC: The patient is alert and oriented x3 with no focal deficits noted. LAB DATA AND TESTS: The patient's laboratory studies in the emergency room showed she was COVID, respiratory syncytial virus and influenza negative. Her troponin was 0.012. Her TSH was noted to be 0.567. Her thyroxine was elevated at 14.4. UA was yellow and cloudy, specific gravity 1.020 with greater than 500 glucose and trace protein, 0-2 white blood cells, 0-2 red blood cells per high power field. Her initial sugar was 698 with a BUN of 42, creatinine 2.02. Her potassium was slightly elevated at 5.2. Her CO2 level was less than 5. Liver enzymes were not elevated. Her alkaline phosphatase was slightly elevated at 211, total bilirubin was 1.90. The white count initially showed white blood cell count of 30.1 with hemoglobin 15.4 and PLT count of 436,000. Lactic acid initially was 7.4. Her venous blood gas was 6.83 with a pCO2 of 29 and pO2 of 64. Differential count showed 2 granulocytes and 84 polys. ASSESSMENT: A patient with diabetic ketoacidosis and hypothyroid secondary to her medications and dehydration. We will reassess this after the patient has been fluid hydrated properly. She has been placed on diabetic ketoacidosis protocol besides the insulin. Encouraged p.o. fluid intake and Zofran for nausea.
[2021-11-30] MEDS ORDERED: LEVOTHYROXINE SODIUM 200 MCG PO SCH (10:00)
[2021-11-30] MEDS ORDERED: ENOXAPARIN SODIUM SQ SCH (10:00)
[2021-11-30 10:23] LABS: BLOOD UREA NITROGEN 19 mg/dL (7-17); CHLORIDE 113 mmol/L (98-107); Calcium 8.1 mg/dL (8.4-10.2); Carbon Dioxide 18 mmol/L (22-30); Creatinine 1 0.81 mg/dL (0.52-1.04); EST GLOMERULAR FILTRATION RATE > 60.0 ML/MIN; Glucose 265 mg/dL (74-106); Potassium 3.6 mmol/L (3.5-5.1); SODIUM 139 mmol/L (137-145)
[2021-12-01] MEDS: NORCO 5/325 MG PO SCH ×3 (05:06→18:01)
[2021-12-01 06:08] LABS: Absolute Neutrophil Ct (ANC) 4.64 (1.4-6.9); Basophil (Absolute #) 0.01 (0-0.4); Eosinophil % 0.7 % (0.00-5.0); Eosinophil (Absolute #) 0.05 (0-0.5); Hematocrit 34.5 % (35-47); Hemoglobin 11.2 gm/dl (12.0-16.0); Lymphocyte (Absolute #) 1.41 (1.0-4.6); Mean Corpuscular Hemoglobin 29.9 pg (26-32); Mean Corpuscular Hgb Concent. 32.5 g/dl (32-36); Mean Platelet Volume 9.5 fl (7.5-11.0); Monocytes % 8.9 % (0.0-12.0); Neutrophil % 69.3 % (36.0-66.0); Platelet Count 193 K/mm3 (150-450); Red Blood Count 3.75 M/mm3 (4.1-5.4); Red Cell Distribution Width 13.2 % (11.5-14.0); White Blood Count 6.7 K/mm3 (4.0-10.5)
[2021-12-01 06:52] LABS: ALBUMIN 3.3 g/dL (3.5-5.0); ALKALINE PHOSPHATASE 97 U/L (38-126); ANION GAP 9.7 MEQ/L (5-15); BLOOD UREA NITROGEN 10 mg/dL (7-17); CHLORIDE 109 mmol/L (98-107); Calcium 8.3 mg/dL (8.4-10.2); Carbon Dioxide 27 mmol/L (22-30); Creatinine 1 0.73 mg/dL (0.52-1.04); EST GLOMERULAR FILTRATION RATE > 60.0 ML/MIN; Potassium 3.8 mmol/L (3.5-5.1); SGOT/AST 25 U/L (14-36); SGPT/ALT 18 U/L (0-35); SODIUM 143 mmol/L (137-145); Total Protein 6.1 g/dL (6.3-8.2)
[2021-12-01] MEDS: SODIUM CHLORIDE 0.45% W/ 20 mEq KCL 1,000 ML IV SCH ×3 (06:54→21:50)
[2021-12-01 06:55] LABS: Glucose 49 mg/dL (74-106)
[2021-12-01] MEDS: SYNTHROID 150 MCG PO SCH (09:11)
[2021-12-01] MEDS: Paxil 20 MG PO SCH (09:11)
[2021-12-01] MEDS: ENOXAPARIN SODIUM SQ SCH (09:11)
[2021-12-02] MEDS: SODIUM CHLORIDE 0.45% W/ 20 mEq KCL 1,000 ML IV SCH (04:13)
[2021-12-02 04:16] VITALS: O2SAT 96
[2021-12-02 06:20] LABS: Basophil (Absolute #) 0.03 (0-0.4); Eosinophil % 1.5 % (0.00-5.0); Eosinophil (Absolute #) 0.08 (0-0.5); Hematocrit 37.1 % (35-47); Hemoglobin 12.1 gm/dl (12.0-16.0); Lymphocyte (Absolute #) 1.45 (1.0-4.6); Lymphocytes % 27.8 % (24.0-44.0); Mean Corpuscular Hemoglobin 30.3 pg (26-32); Mean Corpuscular Hgb Concent. 32.6 g/dl (32-36); Mean Platelet Volume 9.8 fl (7.5-11.0); Monocyte (Absolute #) 0.45 (0.0-1.3); Monocytes % 8.6 % (0.0-12.0); Neutrophil % 61.5 % (36.0-66.0); Platelet Count 200 K/mm3 (150-450); Red Blood Count 3.99 M/mm3 (4.1-5.4); Red Cell Distribution Width 12.9 % (11.5-14.0); White Blood Count 5.2 K/mm3 (4.0-10.5)
[2021-12-02] MEDS: NORCO 5/325 MG PO SCH ×2 (06:33)
[2021-12-02 06:42] LABS: ALBUMIN 3.4 g/dL (3.5-5.0); ALKALINE PHOSPHATASE 97 U/L (38-126); AMYLASE 55 U/L (30-110); ANION GAP 9.1 MEQ/L (5-15); BLOOD UREA NITROGEN 5 mg/dL (7-17); CHLORIDE 107 mmol/L (98-107); Calcium 8.5 mg/dL (8.4-10.2); Carbon Dioxide 29 mmol/L (22-30); Creatinine 1 0.67 mg/dL (0.52-1.04); EST GLOMERULAR FILTRATION RATE > 60.0 ML/MIN; Glucose 87 mg/dL (74-106); LIPASE 206 U/L (23-300); Potassium 3.8 mmol/L (3.5-5.1); SGOT/AST 36 U/L (14-36); SGPT/ALT 28 U/L (0-35); SODIUM 142 mmol/L (137-145); Total Protein 6.3 g/dL (6.3-8.2)
[2021-12-02 08:20] VITALS: BP 119/72; PULSE 61
[2021-12-02] MEDS: Paxil 20 MG PO SCH (09:11)
[2021-12-02] MEDS: ENOXAPARIN SODIUM SQ SCH (09:12)
[2021-12-02] MEDS: SYNTHROID 150 MCG PO SCH (09:12)
--- NOTE | 2021-12-02 11:20 | PCM.DS ---
Discharge Summary Date of Admission: 11/29/21 14:33 Date of Discharge: 12/02/2021 Admitting Physician: ERIN JOE Primary Care Provider: JUANY AMOS Allergies Allergies No Known Drug Allergies Allergy (Verified 11/29/21 08:13) Hospital Summary - Hospital Course Hospital Course: Pt. admitted for DKA, after noting her insulin pump was not working properly, pt. notes that for the couple of days prior she felt to weak to go to other room and obtain her insulin, her would not go get it for her, although it was in the home. Pt. notes she had fatigue, vomiting and confusion, when she arrived to ER PH was 6.8 range, she was admitted for hydration and treatment for DKA. Pt. responded well to DKA protocol and was able to use her insulin pump to achieve blood sugar control by 12/01/21 but was not able to tolerate po intake, but that improved to the point throughout 12/01 that she felt able and ready to go home by am of 12/02/21. Pt. will be discharged on her home medications with no changes. - Vitals & Intake/Output Vital Signs: Vital Signs Temperature 97.6 F 12/02/21 08:00 Pulse Rate 61 12/02/21 08:00 Respiratory Rate 28 H 12/02/21 08:00 Blood Pressure 119/72 12/02/21 08:00 O2 Sat by Pulse Oximetry 96 12/02/21 08:00 Intake & Output: Intake & Output 11/29/21 11/30/21 12/01/21 12/02/21 11:59 11:59 11:59 11:59 Intake Total 2845 3686 3559 Output Total 1850 2200 Balance 995 1486 3559 Weight 99.79 kg 99.4 kg 99.4 kg 100 kg - Lab Result Diagrams: 12/02/21 05:18 12/02/21 05:18 Lab Results-Last 24 Hrs: Lab Results-Last 24 Hours 12/01/21 12/01/21 12/01/21 Range/Units 11:33 16:27 20:43 WBC (4.0-10.5) K/mm3 RBC (4.1-5.4) M/mm3 Hgb (12.0-16.0) gm/dl Hct (35-47) % MCV (78-100) fl MCH (26-32) pg MCHC (32-36) g/dl RDW (11.5-14.0) % Plt Count (150-450) K/mm3 MPV (7.5-11.0) fl Gran % (36.0-66.0) % Eos # (Auto) (0-0.5) Absolute Lymphs (auto) (1.0-4.6) Absolute Monos (auto) (0.0-1.3) Lymphocytes % (24.0-44.0) % Monocytes % (0.0-12.0) % Eosinophils % (0.00-5.0) % Basophils % (0.0-0.4) % Absolute Granulocytes (1.4-6.9) Basophils # (0-0.4) Sodium (137-145) mmol/L Potassium (3.5-5.1) mmol/L Chloride (98-107) mmol/L Carbon Dioxide (22-30) mmol/L Anion Gap (5-15) MEQ/L BUN (7-17) mg/dL Creatinine (0.52-1.04) mg/dL Estimated GFR ML/MIN Glucose (74-106) mg/dL POC Glucometer 176 H 105 216 H (74 to 106) mg/dL Calcium (8.4-10.2) mg/dL Total Bilirubin (0.2-1.3) mg/dL AST (14-36) U/L ALT (0-35) U/L Alkaline Phosphatase (38-126) U/L Serum Total Protein (6.3-8.2) g/dL Albumin (3.5-5.0) g/dL Amylase (30-110) U/L Lipase (23-300) U/L 12/02/21 12/02/21 12/02/21 Range/Units 05:18 05:18 08:01 WBC 5.2 (4.0-10.5) K/mm3 RBC 3.99 L (4.1-5.4) M/mm3 Hgb 12.1 (12.0-16.0) gm/dl Hct 37.1 (35-47) % MCV 93.0 (78-100) fl MCH 30.3 (26-32) pg MCHC 32.6 (32-36) g/dl RDW 12.9 (11.5-14.0) % Plt Count 200 (150-450) K/mm3 MPV 9.8 (7.5-11.0) fl Gran % 61.5 (36.0-66.0) % Eos # (Auto) 0.08 (0-0.5) Absolute Lymphs (auto) 1.45 (1.0-4.6) Absolute Monos (auto) 0.45 (0.0-1.3) Lymphocytes % 27.8 (24.0-44.0) % Monocytes % 8.6 (0.0-12.0) % Eosinophils % 1.5 (0.00-5.0) % Basophils % 0.6 (0.0-0.4) % Absolute Granulocytes 3.20 (1.4-6.9) Basophils # 0.03 (0-0.4) Sodium 142 (137-145) mmol/L Potassium 3.8 (3.5-5.1) mmol/L Chloride 107 (98-107) mmol/L Carbon Dioxide 29 (22-30) mmol/L Anion Gap 9.1 (5-15) MEQ/L BUN 5 L (7-17) mg/dL Creatinine 0.67 (0.52-1.04) mg/dL Estimated GFR > 60.0 ML/MIN Glucose 87 (74-106) mg/dL POC Glucometer 120 H (74 to 106) mg/dL Calcium 8.5 (8.4-10.2) mg/dL Total Bilirubin 1.60 H (0.2-1.3) mg/dL AST 36 (14-36) U/L ALT 28 (0-35) U/L Alkaline Phosphatase 97 (38-126) U/L Serum Total Protein 6.3 (6.3-8.2) g/dL Albumin 3.4 L (3.5-5.0) g/dL Amylase 55 (30-110) U/L Lipase 206 (23-300) U/L Micro Results-Entire Visit: Accuchecks Date 12/02/21 Date 12/01/21 Date 12/01/21 Date 12/01/21 Time 08:01 Time 20:56 Time 16:27 Time 11:34 - Procedures and Test Procedures and Tests throughout Hospitalization: Therapy Orders & Screens 11/29/21 14:38 EKG REPEAT IN AM Comment: 11/29/21 18:16 RT Screen per Nursing Assess ONCE Comment: Protocol Order Physician Instructions: Greater than 3 points order RT Admission Screen Reason For Exam: Triggered on Admission Diagnosis: DKA; leukocytosis; tachycardia Diagnosis: DKA; leukocytosis; tachycardia Pneumonia: No Home O2: No Asthma: Yes CHF: No Home CPAP/BIPAP: No Home Nebs/MDI: Yes Total Points: 9 11/29/21 18:28 Respiratory Therapy Assessment DAILY Comment: Diagnosis: DKA; leukocytosis; tachycardia Discharge Exam General Appearance: no apparent distress, alert Neurologic Exam: alert, oriented x 3, cooperative, normal mood/affect, nml cer ebellar function, sensation nml, No motor deficits Eye Exam: PERRL, EOMI, eyes nml inspection Ears, Nose, Throat Exam: normal ENT inspection, moist mucous membranes Neck Exam: normal inspection, non-tender, supple, full range of motion Respiratory Exam: normal breath sounds, lungs clear, No respiratory distress Cardiovascular Exam: regular rate/rhythm, normal heart sounds Gastrointestinal/Abdomen Exam: soft, No tenderness, No mass Pelvic Exam: deferred Rectal Exam: deferred Back Exam: normal inspection, normal range of motion, No CVA tenderness, No vertebral tenderness Extremity Exam: normal inspection, normal range of motion Skin Exam: normal color, warm, dry Final Diagnosis/Problem List - Final Discharge Diagnosis/Problem (1) Diabetic ketoacidosis Status: Acute Code(s): E11.10 - TYPE 2 DIABETES MELLITUS WITH KETOACIDOSIS WITHOUT COMA (2) Tachycardia Status: Acute Code(s): R00.0 - TACHYCARDIA, UNSPECIFIED - Discharge Discharge Date: 12/02/21 Disposition: Home, Self-Care Condition: Fair Prescriptions: Continue Paroxetine HCl 20 mg [Paxil 20 MG] 20 mg PO DAILY Semaglutide [Ozempic] 0.5 mg SQ WEEKLY Levothyroxine Sodium [Euthyrox] 200 mcg PO DAILY Insulin Lispro [Humalog] 0 unit SQ UD Hydrocodone/Acetaminophen [Hydrocodone-Acetamin 5-325 mg] 1 tab PO Q6H Instructions: Diabetic Ketoacidosis (DC), Sick Day Management for Diabetics Additional Instructions: Call Dr. Amos on Friday12/03/21 to make follow up appointment to see him this week Forms: Discharge Instructions
== END 2021-12-02 10:23 | disposition home or self-care (01) | DRG 639 ==
LOC: ED 07:59 → ICU 14:33
PROVIDERS: ADMIT Family Medicine; ATTEND Family Medicine
DX: E11.10 Type 2 diabetes mellitus with ketoacidosis without coma (principal); R00.0 Tachycardia, unspecified; R11.2 Nausea with vomiting, unspecified; R19.7 Diarrhea, unspecified; E03.9 Hypothyroidism, unspecified; E86.0 Dehydration; R53.1 Weakness; Z79.899 Other long term (current) drug therapy; Z20.828 Contact with and (suspected) exposure to other viral communicable diseases
CPT/HCPCS: 0241U; 36415; 36600; 51702; 80048; 80053; 81001; 82150; 82375; 82803; 82805; 82947; 83605; 83690; 83735; 84436; 84443; 84484; 85025; 93005; 93041; 94760; 96360; 96374; 96375; 99285; 99291; J1650; J1815; J1817; J2405; A9270-GY

== ENCOUNTER 2022-05-15 22:14 | Emergency (ER) | payer BC ==
[2022-05-15 22:41] VITALS: O2SAT 98
[2022-05-15] MEDS ORDERED: XYLOCAINE 1% HCL 20 ML MDV ONE (23:49)
[2022-05-16] MEDS ORDERED: KEFLEX 500 MG ONE (00:41)
--- NOTE | 2022-05-16 00:47 | ERPHSYRPT ---
- History of Present Illness Time Seen by Provider: 05/15/22 22:40 Source: patient Exam Limitations: no limitations Patient Subjective Stated Complaint: pt states she tripped and fell into her curio cabinet. states she broke the glass on the door and cut her arm. Triage Nursing Assessment: pt alert and oriented, answers questions approp. pt ambulatory with steady gait noted. respirations nonlabored with lungs cta. skin warm and dry. approx 1.5cm laceration to lt forearm, bleeding controlled at this time. other small abrasions noted to lt forearm. no bleeding noted. cap refill and radial pulse to lt arm wnl. Physician History: Patient is a 51-year-old female presents to our ED for evaluation of laceration to left forearm. Patient states she tripped and fell into a curio cabinet. Patient states the glass shattered and cut her left forearm. Patient declined a tetanus shot. Patient believes her tetanus is up-to-date. Patient states she will follow-up with her primary care doctor and obtain a tetanus then if 1 is indicated. Patient injury occurred just prior to arrival. Patient denies bony tenderness. Patient able to move all digits wrist and elbow and shoulder without any compromise. Symptoms are mild in intensity. Patient denies foreign body sensation to the laceration. Patient voices no other complaints or concerns at this time. Timing/Duration: today Severity: mild Modifying Factors: Improves With: nothing Associated Symptoms: denies symptoms Allergies/Adverse Reactions: No Known Drug Allergies Allergy (Verified 05/15/22 22:34) Home Medications: Hydrocodone/Acetaminophen [Hydrocodone-Acetamin 5-325 mg] 1 tab PO Q6H [History] Insulin Lispro [Humalog] 0 unit SQ UD 11/29/21 [History] Levothyroxine Sodium [Euthyrox] 200 mcg PO DAILY 11/29/21 [History] Paroxetine HCl 20 mg [Paxil 20 MG] 20 mg PO DAILY 11/29/21 [History] Semaglutide [Ozempic] 0.5 mg SQ WEEKLY 11/29/21 [History] Hx Tetanus, Diphtheria Vaccination/Date Given: No (unsure) Hx Influenza Vaccination/Date Given: No Hx Pneumococcal Vaccination/Date Given: No Immunizations Up to Date: No Travel Risk - International Travel Have you traveled outside of the country in past 3 weeks: No - Coronavirus Screening Close contact with a COVID-19 positive Pt in past 14-21 Days: No - Vaccine Status Have you recieved a Covid-19 vaccination: Yes 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: [employer] - Review of Systems Constitutional: No Symptoms, No Fever, No Chills Eyes: No Symptoms Ears, Nose, & Throat: No Symptoms Respiratory: No Symptoms, No Cough, No Dyspnea Cardiac: No Symptoms, No Chest Pain, No Edema, No Syncope Abdominal/Gastrointestinal: No Symptoms, No Abdominal Pain, No Nausea, No Vomiting, No Diarrhea Genitourinary Symptoms: No Symptoms, No Dysuria Musculoskeletal: No Symptoms, No Back Pain, No Neck Pain Skin: No Symptoms, Other (1.5 cm laceration left distal forearm volar aspect), No Rash Neurological: No Symptoms, No Dizziness, No Focal Weakness, No Sensory Changes Psychological: No Symptoms Endocrine: No Symptoms Hematologic/Lymphatic: No Symptoms Immunological/Allergic: No Symptoms All Other Systems: Reviewed and Negative - Past Medical History Pertinent Past Medical History: Yes Cardiac History: High Cholesterol, Hypertension Respiratory History: Asthma Endocrine Medical History: Diabetes Type I, Hypothyroidism Musculoskeletal History: Arthritis Psycho-Social History: Anxiety, Panic Disorder Other Medical History: chronic pain - Past Surgical History Past Surgical History: Yes Musculoskeletal: Orthopedic Surgery Female Surgical History: Section Other Surgical History: arm, ankle - Social History Smoking Status: Never smoker Exposure to second hand smoke: No Drug Use: none Patient Lives Alone: No - Nursing Vital Signs Nursing Vital Signs: Initial Vital Signs Temperature 98.2 F 05/15/22 22:35 Pulse Rate 74 05/15/22 22:35 Respiratory Rate 16 05/15/22 22:35 Blood Pressure 126/84 05/15/22 22:35 O2 Sat by Pulse Oximetry 98 05/15/22 22:35 Pain Scale Pain Intensity 5 - Physical Exam General Appearance: no apparent distress, alert Eye Exam: PERRL/EOMI, eyes nml inspection Ears, Nose, Throat Exam: normal ENT inspection, TMs normal, pharynx normal, moist mucous membranes Neck Exam: normal inspection, non-tender, supple, full range of motion Respiratory Exam: normal breath sounds, lungs clear, No respiratory distress Cardiovascular Exam: regular rate/rhythm, normal heart sounds, normal peripheral pulses Gastrointestinal/Abdomen Exam: soft, normal bowel sounds, No tenderness, No mass Back Exam: normal inspection, normal range of motion, No CVA tenderness, No vertebral tenderness Extremity Exam: normal inspection, normal range of motion, pelvis stable Neurologic Exam: alert, oriented x 3, cooperative, normal mood/affect, nml cerebellar function, nml station & gait, sensation nml, No motor deficits Skin Exam: normal color, warm, dry, other (Elliptical shape laceration with flap at the distal aspect of the left volar forearm. No active bleeding. No involvement of tendon. No nerve involvement.), No rash Lymphatic Exam: No adenopathy SpO2 Interpretation: normal SpO2: 98 - Course Nursing assessment & vital signs reviewed: Yes - Radiology Exams Forearm X-ray Interpretation: Interpreted by me (No fractures or dislocations. No foreign body observed on x-ray.) Ordered Tests: Active Orders 24 hr Category Date Time Status FOREARM Stat Exams 05/15/22 00:02 Taken Medication Summary Discontinued Medications Generic Name Dose Route Start Last Admin Trade Name Freq PRN Reason Stop Dose Admin Lidocaine HCl Confirm 05/15/22 23:49 Lidocaine Hcl 1% 20 Ml Mdv 20 Ml Ml Administered 05/15/22 23:50 Dose 5 ml .ROUTE .[employer] ONE - Progress Progress: improved Progress Note: Patient reassessed. She feels well. Wound was repaired using four 4-0 nylon simple interrupted sutures. Patient neurovascular intact post procedure. Patient has a history of diabetes so prophylactic antibiotic was provided. Patient agrees to follow-up with primary care doctor within 48 hours for evaluation. She voices no other complaints or concerns at this time. Portions of this note were created with voice recognition technology. There may be grammatical, spelling, punctuation or sound alike errors 05/16/22 00:46 Counseled pt/family regarding: diagnosis, need for follow-up, rad results - Departure Departure Disposition: Home Clinical Impression: Laceration, Fall Condition: Stable Critical Care Time: No Referrals: JUANY RUBALCAVA [Primary Care Provider] - Follow up/PCP as directed Additional Instructions: Discharge/Care Plan DIANNA VALLE was seen on 05/16/22 in the Emergency Room. The patient was counseled regarding Diagnosis,Lab results, Imaging studies, need for follow up and when to return to the Emergency Room. Prescriptions given: Discharge Note I have spoken with the patient and/or caregivers. I have explained the patient's condition, diagnosis and treatment plan based on the information available to me at this time. I have answered the patient's and/or caregiver's questions and addressed any concerns. The patient and/or caregivers have as good understanding of the patient's diagnosis, condition and treatment plan as can be expected at this point. The vital signs have been stable. The patient's condition is stable and appropriate for discharge from the emergency department. The patient will pursue further outpatient evaluation with the primary care physician or other designated or consulting physician as outlined in the discharge instructions. The patient and/or caregivers are agreeable to this plan of care and follow-up instructions have been explained in detail. The patient and/or caregivers have received these instruction. The patient/and or caregivers are aware that any significant change in condition or worsening of symptoms should prompt an immediate return to this or the closest emergency department or call 911. Prescriptions: Cephalexin Mh 500 mg [Keflex 500 mg] 500 mg PO TID #21 cap
[2022-05-16 01:01] VITALS: BP 118/76; PULSE 84
[2022-05-16] MEDS ORDERED: KEFLEX 500 MG PO ONE (01:07)
[2022-05-16] MEDS ORDERED: LIDOCAINE HCL 1% 50 MG/5 ML VL PF IJ ONE (01:07)
[2022-05-16] MEDS ORDERED: BACIGUENT PACKET TP ONE (01:07)
--- NOTE | 2022-05-16 09:04 | XRAY ---
Indication: Laceration. Comparison: None 2 view left forearm obtained. No bony, articular, or soft tissue abnormalities.
== END 2022-05-16 00:58 | disposition home or self-care (01) ==
LOC: ED 22:14
DX: S51.812A Laceration without foreign body of left forearm, initial encounter (principal); W01.190A Fall on same level from slipping, tripping and stumbling with subsequent striking against furniture, initial encounter; E78.5 Hyperlipidemia, unspecified; I10 Essential (primary) hypertension; E10.9 Type 1 diabetes mellitus without complications; Z79.899 Other long term (current) drug therapy
CPT/HCPCS: 12001; 73090; 96372; 99283; J2001; A9270-GY

== ENCOUNTER 2022-09-28 01:39 | Emergency (ER) | payer BC ==
--- NOTE | 2022-09-28 02:03 | ERPHSYRPT ---
- History of Present Illness Source: patient, EMS Exam Limitations: other (Poor historian) Patient Subjective Stated Complaint: pt states "I was on the toliet having a bowel movement. The next thing I know he is yelling at me. 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 Pt states that she was having some chills/mild nausea/mild diarrhea earlier in the evening. She currently has a mild headache. Pt is alert and oriented x 3 upon arrival w a great airway. She denies focal weakness/chest pain/melena/hematochezia/dysuria/hematuria. Glucose 238 per EMS. Timing/Duration: other (Before arrival) Severity: mild Character of Deficits: none Baseline/Normal Cognition: alert oriented x 3 Current Cognition: alert oriented x 3 Associated Symptoms: chills, nausea, weakness, headache, No confusion, No fatigue, No fever, No loss of consciousness, No vomiting, No insomnia, No muscle spasms, No numbness/tingling in legs/feet, No paresthesia, No ringing in ears, No seizures, No slurred speech, No trouble walking, No vision changes, No chest pain Allergies/Adverse Reactions: No Known Drug Allergies Allergy (Verified 05/15/22 22:34) Home Medications: Hydrocodone/Acetaminophen [Hydrocodone-Acetamin 5-325 mg] 1 tab PO Q6H [History] Insulin Lispro [Humalog] 0 unit SQ UD 11/29/21 [History] Levothyroxine Sodium [Euthyrox] 200 mcg PO DAILY 11/29/21 [History] Paroxetine HCl 20 mg [Paxil 20 MG] 20 mg PO DAILY 11/29/21 [History] Semaglutide [Ozempic] 0.5 mg SQ WEEKLY 11/29/21 [History] Hx Tetanus, Diphtheria Vaccination/Date Given: Yes (unsure) Hx Influenza Vaccination/Date Given: Yes Hx Pneumococcal Vaccination/Date Given: Yes Immunizations Up to Date: Yes Travel Risk - International Travel Have you traveled outside of the country in past 3 weeks: No - Coronavirus Screening Are you exhibiting any of the following symptoms?: No Close contact with a COVID-19 positive Pt in past 14-21 Days: No - Vaccine Status Have you recieved a Covid-19 vaccination: Yes Nuclear Physician: [facility]Ji[facility] - Review of Systems Constitutional: No Symptoms Eyes: No Symptoms Ears, Nose, & Throat: No Symptoms Respiratory: No Symptoms Cardiac: No Symptoms Abdominal/Gastrointestinal: No Symptoms, Diarrhea Genitourinary Symptoms: No Symptoms Musculoskeletal: No Symptoms Skin: No Symptoms Neurological: No Symptoms, Headache Psychological: No Symptoms Endocrine: No Symptoms Hematologic/Lymphatic: No Symptoms Immunological/Allergic: No Symptoms - Past Medical History Pertinent Past Medical History: Yes Cardiac History: High Cholesterol, Hypertension Respiratory History: Asthma Endocrine Medical History: Diabetes Type I, Hypothyroidism Musculoskeletal History: Arthritis Psycho-Social History: Anxiety, Panic Disorder Other Medical History: chronic pain - Past Surgical History Past Surgical History: Yes Musculoskeletal: Orthopedic Surgery Female Surgical History: Section Other Surgical History: arm, ankle - Social History Smoking Status: Never smoker Exposure to second hand smoke: No Drug Use: none Patient Lives Alone: No - Nursing Vital Signs Nursing Vital Signs: Initial Vital Signs Temperature 97.3 F 09/28/22 01:42 Pulse Rate 78 09/28/22 01:42 Respiratory Rate 14 09/28/22 01:42 Blood Pressure 124/71 09/28/22 01:42 O2 Sat by Pulse Oximetry 97 09/28/22 01:42 Pain Scale Pain Intensity 0 WNL - Cody Coma Scale Best Eye Response (Cody): (4) open spontaneously Best Verbal Response (Kimberlee): (5) oriented Best Motor Response (Cody): (6) obeys commands Kimberlee Total: 15 - Physical Exam General Appearance: no apparent distress Eye Exam: bilateral eye: normal inspection, PERRL, EOMI Ears, Nose, Throat Exam: normal ENT inspection, TMs normal, pharynx normal, moist mucous membranes Neck Exam: normal inspection, non-tender, supple, full range of motion, No meningismus, No mass, No Brudzinski, No Kernig's, No carotid bruit Respiratory: normal breath sounds, lungs clear, airway intact Cardiovascular: regular rate/rhythm, normal heart sounds, normal peripheral pulses, capillary refill <2 sec, No murmur Gastrointestinal: soft, normal bowel sounds, No tenderness Back Exam: normal inspection, normal range of motion, No CVA tenderness, No vertebral tenderness Extremity Exam: normal inspection, normal range of motion, pelvis stable Peripheral Pulses: carotid (R): 2+, carotid (L): 2+ Mental Status: alert, oriented x 3, 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 support coordinator Exam: normal hearing, normal speech, PERRL, tongue midline, No abnormal eye position, No abnormal gag reflex, No abnormal pupil position, No abnormal speech, No facial asymmetry, No facial droop, No facial paresthesias, No facial weakness Coordination/Gait: normal finger to nose, normal gait, normal cerebellar function, negative Romberg's sign Motor/Sensory: no motor deficit, no sensory deficit, no pronator drift, negative Babinski's sign DTR: bicep (R): 2+, bicep (L): 2+ Skin Exam: normal color, warm, dry, No rash SpO2 Interpretation: normal SpO2: 97 O2 Delivery: Room Air - Course Nursing assessment & vital signs reviewed: Yes EKG Interpreted by Me: RATE (NSR/Rate71/Normal QT-QTc/Low voltage/flat T waves/No acute ST segment changes) - CT Exams Head CT Interpretation: Tele-radiologist Report (CT head neg) Ordered Tests: Active Orders 24 hr Category Date Time Status EKG-ER Only STAT Care 09/28/22 01:45 Completed HEAD WITHOUT CONTRAST [CT] Stat Exams 09/28/22 02:46 Taken CBC W DIFF Stat Lab 09/28/22 02:18 Completed CMP Stat Lab 09/28/22 02:18 Completed D-DIMER QUANTITATIVE Stat Lab 09/28/22 02:18 Completed Lactic Acid Stat Lab 09/28/22 03:00 Completed PROTIME WITH INR Stat Lab 09/28/22 02:18 Completed PTT Stat Lab 09/28/22 02:18 Completed TROPONIN Q4H Lab 09/28/22 02:18 Completed UA W/RFX CULTURE Stat Lab 09/28/22 02:26 Completed Urine Triage Profile Stat Lab 09/28/22 02:26 Completed Lab/Rad Data: Laboratory Result Diagrams 09/28/22 02:18 09/28/22 02:18 Laboratory Results 09/28/22 09/28/22 09/28/22 Range/Units 03:04 03:00 02:26 WBC (4.0-10.5) x10^3/uL RBC (4.1-5.4) x10^6/uL Hgb (12.0-16.0) g/dL Hct (35-47) % MCV (78-100) fL MCH (26-32) pg MCHC (32-36) g/dL RDW (11.5-14.0) % Plt Count (150-450) x10^3/uL MPV (7.5-11.0) fL Gran % (36.0-66.0) % Immature Gran % (Auto) (0.00-0.4) % Nucleat RBC Rel Count (0.00-0.1) % Eos # (Auto) (0-0.5) x10^3/uL Immature Gran # (Auto) (0.00-0.03) x10^3u/L Absolute Lymphs (auto) (1.0-4.6) x10^3/uL Absolute Monos (auto) (0.0-1.3) x10^3/uL Absolute Nucleated RBC (0.00-0.01) x10^3u/L Lymphocytes % (24.0-44.0) % Monocytes % (0.0-12.0) % Eosinophils % (0.00-5.0) % Basophils % (0.0-0.4) % Absolute Granulocytes (1.4-6.9) x10^3/uL Basophils # (0-0.4) x10^3/uL PT (9.4-12.5) SECONDS INR (0.8-3.0) APTT (25.1-36.5) SECONDS D-Dimer (0.0-0.50) mg/L Sodium (137-145) mmol/L Potassium (3.5-5.1) mmol/L Chloride (98-107) mmol/L Carbon Dioxide (22-30) mmol/L Anion Gap (5-15) MEQ/L BUN (7-17) mg/dL Creatinine (0.52-1.04) mg/dL Estimated GFR ML/MIN Glucose (74-106) mg/dL Lactic Acid 1.0 (0.4-2.0) Calcium (8.4-10.2) mg/dL Total Bilirubin (0.2-1.3) mg/dL AST (14-36) U/L ALT (0-35) U/L Alkaline Phosphatase (38-126) U/L Troponin I (0.000-0.034) ng/mL Serum Total Protein (6.3-8.2) g/dL Albumin (3.5-5.0) g/dL Urinalys Dipstick Clnc MAIN LAB Urine Color YELLOW (YELLOW) Urine Appearance CLEAR (CLEAR) Urine pH 7.5 (5-6) Ur Specific [place] 1.020 (1.005-1.025) POC Urine Protein Conf 30 A (Negative) Urine Ketones SMALL-15 A (NEGATIVE) Urine Nitrite NEGATIVE (NEGATIVE) Urine Bilirubin NEGATIVE (NEGATIVE) Urine Urobilinogen 1 A (0-1) mg/dL Urine Leukocytes NEGATIVE (NEGATIVE) Urine WBC (Auto) 3-5 A (0-5) /HPF Urine RBC (Auto) NONE (0-2) /HPF U Hyaline Cast (Auto) 0-2 (0-2) /LPF U Epithel Cells (Auto) RARE (FEW) /HPF Urine Bacteria (Auto) NONE (NEGATIVE) /HPF Urine RBC NEGATIVE (0-5) Mao/ul Urine Mucus (Auto) SLIGHT A (NEGATIVE) /HPF Ur Culture Indicated? NO Urine Glucose NEGATIVE (NEGATIVE) mg/dL Urine Opiates Level (NEGATIVE) Ur Methadone (NEGATIVE) Urine Barbiturates (NEGATIVE) Ur Phencyclidine (PCP) (NEGATIVE) Urine Amphetamine (NEGATIVE) U Benzodiazepine Level (NEGATIVE) Urine Cocaine (NEGATIVE) Urine Marijuana (THC) (NEGATIVE) Influenza Type A Ag NEGATIVE (NEGATIVE) Influenza Type B Ag NEGATIVE (NEGATIVE) RSV (PCR) NEGATIVE (Negative) SARS-CoV-2 (PCR) NEGATIVE (NEGATIVE) Slides for Path Review 09/28/22 09/28/22 09/28/22 Range/Units 02:26 02:18 02:18 WBC (4.0-10.5) x10^3/uL RBC (4.1-5.4) x10^6/uL Hgb (12.0-16.0) g/dL Hct (35-47) % MCV (78-100) fL MCH (26-32) pg MCHC (32-36) g/dL RDW (11.5-14.0) % Plt Count (150-450) x10^3/uL MPV (7.5-11.0) fL Gran % (36.0-66.0) % Immature Gran % (Auto) (0.00-0.4) % Nucleat RBC Rel Count (0.00-0.1) % Eos # (Auto) (0-0.5) x10^3/uL Immature Gran # (Auto) (0.00-0.03) x10^3u/L Absolute Lymphs (auto) (1.0-4.6) x10^3/uL Absolute Monos (auto) (0.0-1.3) x10^3/uL Absolute Nucleated RBC (0.00-0.01) x10^3u/L Lymphocytes % (24.0-44.0) % Monocytes % (0.0-12.0) % Eosinophils % (0.00-5.0) % Basophils % (0.0-0.4) % Absolute Granulocytes (1.4-6.9) x10^3/uL Basophils # (0-0.4) x10^3/uL PT 11.2 (9.4-12.5) SECONDS INR 1.06 (0.8-3.0) APTT 22.8 L (25.1-36.5) SECONDS D-Dimer 0.23 (0.0-0.50) mg/L Sodium 134 L (137-145) mmol/L Potassium 4.4 (3.5-5.1) mmol/L Chloride 101 (98-107) mmol/L Carbon Dioxide 28 (22-30) mmol/L Anion Gap 9.9 (5-15) MEQ/L BUN 21 H (7-17) mg/dL Creatinine 0.79 (0.52-1.04) mg/dL Estimated GFR > 60.0 ML/MIN Glucose 185 H (74-106) mg/dL Lactic Acid (0.4-2.0) Calcium 8.5 (8.4-10.2) mg/dL Total Bilirubin 2.60 H (0.2-1.3) mg/dL AST 29 (14-36) U/L ALT 32 (0-35) U/L Alkaline Phosphatase 106 (38-126) U/L Troponin I (0.000-0.034) ng/mL Serum Total Protein 7.2 (6.3-8.2) g/dL Albumin 4.2 (3.5-5.0) g/dL Urinalys Dipstick Clnc Urine Color (YELLOW) Urine Appearance (CLEAR) Urine pH (5-6) Ur Specific [place] (1.005-1.025) POC Urine Protein Conf (Negative) Urine Ketones (NEGATIVE) Urine Nitrite (NEGATIVE) Urine Bilirubin (NEGATIVE) Urine Urobilinogen (0-1) mg/dL Urine Leukocytes (NEGATIVE) Urine WBC (Auto) (0-5) /HPF Urine RBC (Auto) (0-2) /HPF U Hyaline Cast (Auto) (0-2) /LPF U Epithel Cells (Auto) (FEW) /HPF Urine Bacteria (Auto) (NEGATIVE) /HPF Urine RBC (0-5) Mao/ul Urine Mucus (Auto) (NEGATIVE) /HPF Ur Culture Indicated? Urine Glucose (NEGATIVE) mg/dL Urine Opiates Level POSITIVE (NEGATIVE) Ur Methadone NEGATIVE (NEGATIVE) Urine Barbiturates NEGATIVE (NEGATIVE) Ur Phencyclidine (PCP) NEGATIVE (NEGATIVE) Urine Amphetamine NEGATIVE (NEGATIVE) U Benzodiazepine Level NEGATIVE (NEGATIVE) Urine Cocaine NEGATIVE (NEGATIVE) Urine Marijuana (THC) NEGATIVE (NEGATIVE) Influenza Type A Ag (NEGATIVE) Influenza Type B Ag (NEGATIVE) RSV (PCR) (Negative) SARS-CoV-2 (PCR) (NEGATIVE) Slides for Path Review 09/28/22 09/28/22 Range/Units 02:18 02:18 WBC 5.0 (4.0-10.5) x10^3/uL RBC 4.33 (4.1-5.4) x10^6/uL Hgb 12.9 (12.0-16.0) g/dL Hct 39.6 (35-47) % MCV 91.5 (78-100) fL MCH 29.8 (26-32) pg MCHC 32.6 (32-36) g/dL RDW 12.3 (11.5-14.0) % Plt Count 203 (150-450) x10^3/uL MPV 9.7 (7.5-11.0) fL Gran % 87.6 H (36.0-66.0) % Immature Gran % (Auto) 0.4 (0.00-0.4) % Nucleat RBC Rel Count 0.0 (0.00-0.1) % Eos # (Auto) 0.03 (0-0.5) x10^3/uL Immature Gran # (Auto) 0.02 (0.00-0.03) x10^3u/L Absolute Lymphs (auto) 0.28 L (1.0-4.6) x10^3/uL Absolute Monos (auto) 0.28 (0.0-1.3) x10^3/uL Absolute Nucleated RBC 0.00 (0.00-0.01) x10^3u/L Lymphocytes % 5.6 L (24.0-44.0) % Monocytes % 5.6 (0.0-12.0) % Eosinophils % 0.6 (0.00-5.0) % Basophils % 0.2 (0.0-0.4) % Absolute Granulocytes 4.42 (1.4-6.9) x10^3/uL Basophils # 0.01 (0-0.4) x10^3/uL PT (9.4-12.5) SECONDS INR (0.8-3.0) APTT (25.1-36.5) SECONDS D-Dimer (0.0-0.50) mg/L Sodium (137-145) mmol/L Potassium (3.5-5.1) mmol/L Chloride (98-107) mmol/L Carbon Dioxide (22-30) mmol/L Anion Gap (5-15) MEQ/L BUN (7-17) mg/dL Creatinine (0.52-1.04) mg/dL Estimated GFR ML/MIN Glucose (74-106) mg/dL Lactic Acid (0.4-2.0) Calcium (8.4-10.2) mg/dL Total Bilirubin (0.2-1.3) mg/dL AST (14-36) U/L ALT (0-35) U/L Alkaline Phosphatase (38-126) U/L Troponin I < 0.012 (0.000-0.034) ng/mL Serum Total Protein (6.3-8.2) g/dL Albumin (3.5-5.0) g/dL Urinalys Dipstick Clnc Urine Color (YELLOW) Urine Appearance (CLEAR) Urine pH (5-6) Ur Specific [place] (1.005-1.025) POC Urine Protein Conf (Negative) Urine Ketones (NEGATIVE) Urine Nitrite (NEGATIVE) Urine Bilirubin (NEGATIVE) Urine Urobilinogen (0-1) mg/dL Urine Leukocytes (NEGATIVE) Urine WBC (Auto) (0-5) /HPF Urine RBC (Auto) (0-2) /HPF U Hyaline Cast (Auto) (0-2) /LPF U Epithel Cells (Auto) (FEW) /HPF Urine Bacteria (Auto) (NEGATIVE) /HPF Urine RBC (0-5) Mao/ul Urine Mucus (Auto) (NEGATIVE) /HPF Ur Culture Indicated? Urine Glucose (NEGATIVE) mg/dL Urine Opiates Level (NEGATIVE) Ur Methadone (NEGATIVE) Urine Barbiturates (NEGATIVE) Ur Phencyclidine (PCP) (NEGATIVE) Urine Amphetamine (NEGATIVE) U Benzodiazepine Level (NEGATIVE) Urine Cocaine (NEGATIVE) Urine Marijuana (THC) (NEGATIVE) Influenza Type A Ag (NEGATIVE) Influenza Type B Ag (NEGATIVE) RSV (PCR) (Negative) SARS-CoV-2 (PCR) (NEGATIVE) Slides for Path Review YES - Progress Progress Note: 09/28/22 03:33 Pt wo focal weakness in ER. She has no pronator drift and was able to walk a [facility] [employer] line wo difficulty. VVS throughout entire stay. Counseled pt/family regarding: lab results, diagnosis, need for follow-up, rad results - Departure Departure Disposition: Home Clinical Impression: Vasovagal syncope Condition: Stable Critical Care Time: No Referrals: JUANY RUBALCAVA [Primary Care Provider] - Follow up/PCP as directed Instructions: Syncope (Fainting) (DC), Vasovagal Response (DC) Additional Instructions: Follow up with your family MD on Friday No driving until cleared by your family MD Return to ER for focal weakness, chest pain, shortness of breath, or temperature greater than 100.5
[2022-09-28 02:21] LABS: Absolute Neutrophil Ct (ANC) 4.42 x10^3/uL (1.4-6.9); Basophil (Absolute #) 0.01 x10^3/uL (0-0.4); Eosinophil % 0.6 % (0.00-5.0); Eosinophil (Absolute #) 0.03 x10^3/uL (0-0.5); Hematocrit 39.6 % (35-47); Hemoglobin 12.9 g/dL (12.0-16.0); Lymphocyte (Absolute #) 0.28 x10^3/uL (1.0-4.6); Lymphocytes % 5.6 % (24.0-44.0); Mean Cell Volume 91.5 fL (78-100); Mean Corpuscular Hemoglobin 29.8 pg (26-32); Mean Corpuscular Hgb Concent. 32.6 g/dL (32-36); Mean Platelet Volume 9.7 fL (7.5-11.0); Monocyte (Absolute #) 0.28 x10^3/uL (0.0-1.3); Monocytes % 5.6 % (0.0-12.0); Neutrophil % 87.6 % (36.0-66.0); Platelet Count 203 x10^3/uL (150-450); Red Blood Count 4.33 x10^6/uL (4.1-5.4); Red Cell Distribution Width 12.3 % (11.5-14.0)
[2022-09-28 02:36] LABS: ALBUMIN 4.2 g/dL (3.5-5.0); ALKALINE PHOSPHATASE 106 U/L (38-126); ANION GAP 9.9 MEQ/L (5-15); BLOOD UREA NITROGEN 21 mg/dL (7-17); CHLORIDE 101 mmol/L (98-107); Calcium 8.5 mg/dL (8.4-10.2); Carbon Dioxide 28 mmol/L (22-30); Creatinine 1 0.79 mg/dL (0.52-1.04); EST GLOMERULAR FILTRATION RATE > 60.0 ML/MIN; Glucose 185 mg/dL (74-106); Potassium 4.4 mmol/L (3.5-5.1); SGOT/AST 29 U/L (14-36); SGPT/ALT 32 U/L (0-35); SODIUM 134 mmol/L (137-145); Total Protein 7.2 g/dL (6.3-8.2)
[2022-09-28 02:37] LABS: Appearance CLEAR (CLEAR); Bilirubin NEGATIVE (NEGATIVE); Glucose NEGATIVE (NEGATIVE); Ketones SMALL-15 (NEGATIVE); RBC NEGATIVE Ery/ul (0-5)
[2022-09-28 02:38] LABS: Dipstick done @ ? MAIN LAB; Nitrite NEGATIVE (NEGATIVE); Ph 7.5 (5-6); Protein,Urine Dip 30 (Negative); Urobilinogen 1 mg/dL (0-1)
[2022-09-28 02:41] LABS: Epithelial Cells RARE /HPF (FEW); Hyaline Casts 0-2 /LPF (0-2); Mucus SLIGHT /HPF (NEGATIVE); Urine Cultured Indicated? NO
[2022-09-28 02:47] LABS: D-DIMER QUANTITATIVE 0.23 mg/L (0.0-0.50); INR 1.06 (0.8-3.0); PROTIME 11.2 SECONDS (9.4-12.5); PTT 22.8 SECONDS (25.1-36.5)
[2022-09-28 02:50] LABS: Amphetamine,Urine NEGATIVE (NEGATIVE); Barbiturate,Urine NEGATIVE (NEGATIVE); Benzodiazepine,Urine NEGATIVE (NEGATIVE); Cocaine,Urine NEGATIVE (NEGATIVE); Methadone,Urine NEGATIVE (NEGATIVE); Opiate,Urine POSITIVE (NEGATIVE); PCP,Urine NEGATIVE (NEGATIVE); THC,Urine NEGATIVE (NEGATIVE)
[2022-09-28 03:39] VITALS: BP 132/75; PULSE 76
[2022-09-28 03:42] LABS: INFLUENZA A NEGATIVE (NEGATIVE); INFLUENZA B NEGATIVE (NEGATIVE); RESPIRATORY SYNCTIAL VIRUS NEGATIVE (Negative); SARS-CoV-2 Xpert Express NEGATIVE (NEGATIVE)
[2022-09-28 04:55] LABS: Slide Review 1 YES
[2022-09-28 05:19] VITALS: O2SAT 97
--- NOTE | 2022-09-28 07:42 | XRAY ---
Indication: Syncope. Headache. Multiple contiguous axial images obtained through the head without contrast. Comparison: None Normal appearing brain parenchyma, ventricles, and bony calvarium for patient's age. Paranasal sinuses and mastoid air cells are clear. Impression: Normal CT head without contrast exam. Comment: Preliminary interpretation made by [facility]. No critical discrepancy.
== END 2022-09-28 03:46 | disposition home or self-care (01) ==
LOC: ED 01:39
DX: R55 Syncope and collapse (principal); R51.9 Headache, unspecified; R68.83 Chills (without fever); R11.0 Nausea; R19.7 Diarrhea, unspecified; E78.5 Hyperlipidemia, unspecified; I10 Essential (primary) hypertension; E10.65 Type 1 diabetes mellitus with hyperglycemia; Z79.4 Long term (current) use of insulin; Z79.85 Long-term (current) use of injectable non-insulin antidiabetic drugs; Z79.899 Other long term (current) drug therapy
CPT/HCPCS: 0241U; 36000; 36415; 70450; 80053; 80307; 81015; 83605; 84484; 85025; 85379; 85610; 85730; 93005; 99284

== ENCOUNTER 2024-02-07 05:31 | Emergency (ER) | payer BC ==
[2024-02-07 05:47] VITALS: RESP 18; TEMP 97.9
[2024-02-07 05:56] LABS: Absolute Neutrophil Ct (ANC) 4.71 x10^3/uL (1.4-6.9); BASOPHIL % 0.5 % (0.0-0.4); Basophil (Absolute #) 0.03 x10^3/uL (0-0.4); Eosinophil % 0.6 % (0.00-5.0); Eosinophil (Absolute #) 0.04 x10^3/uL (0-0.5); Hematocrit 36.1 % (35-47); Hemoglobin 11.9 g/dL (12.0-16.0); IMMATURE GRAN # 0.02 x10^3u/L (0.00-0.03); IMMATURE GRAN % 0.3 % (0.00-0.4); Lymphocyte (Absolute #) 1.11 x10^3/uL (1.0-4.6); Lymphocytes % 17.4 % (24.0-44.0); Mean Cell Volume 91.2 fL (78-100); Mean Corpuscular Hemoglobin 30.1 pg (26-32); Mean Platelet Volume 9.5 fL (7.5-11.0); Monocyte (Absolute #) 0.46 x10^3/uL (0.0-1.3); Monocytes % 7.2 % (0.0-12.0); Platelet Count 234 x10^3/uL (150-450); Red Blood Count 3.96 x10^6/uL (4.1-5.4); Red Cell Distribution Width 12.6 % (11.5-14.0); White Blood Count 6.4 x10^3/uL (4.0-10.5)
--- NOTE | 2024-02-07 05:57 | ERPHSYRPT ---
- History of Present Illness Source: patient Exam Limitations: no limitations Timing/Duration: today Severity: mild Associated Symptoms: No nausea, No vomiting, No abdominal pain, No shortness of breath, No diaphoresis, No chest pain, No fever, No headaches, No syncope Hx Tetanus, Diphtheria Vaccination/Date Given: Yes (unsure) Hx Influenza Vaccination/Date Given: Yes Hx Pneumococcal Vaccination/Date Given: Yes - History of Present Illness Time Seen by Provider: 02/07/24 05:40 Physician History: 53yo f presents to ED via EMS for hypoglycemia. Pt reports her BG was 58 when she went to bed last night, woke up this AM and BG was 39. When EMS arrived, pt was lethargic laying on couch, able to answer questions appropriately, AxO x 3. Pt is a type 1 diabetic, has omnipod insulin pump on at time of presentation. Pt reports she receives 5u insulin hourly, reports frequent episodes of low blood sugar. Pt is currently axo x 3, able to answer questions appropriately. Pt received oral glucagon in route to ER, was started on D10 drip, initial BG at our facility 57. Pt currently denies cp, soa, n/v/d, chills, diaphoresis. (TOMY MELENDEZ) Allergies/Adverse Reactions: No Known Drug Allergies Allergy (Verified 02/07/24 05:47) Home Medications: Hydrocodone/Acetaminophen [Hydrocodone-Acetamin 5-325 mg] 1 tab PO Q6H 11/29/21 [History] Insulin Lispro [Humalog] 0 unit SQ UD 11/29/21 [History] Levothyroxine Sodium [Euthyrox] 200 mcg PO DAILY 11/29/21 [History] Paroxetine HCl 20 mg [Paxil 20 MG] 20 mg PO DAILY 11/29/21 [History] Semaglutide [Ozempic] 0.5 mg SQ WEEKLY 11/29/21 [History] - Review of Systems Constitutional: Fatigue, No Fever, No Chills Respiratory: No Symptoms Cardiac: No Symptoms Abdominal/Gastrointestinal: No Symptoms Genitourinary Symptoms: No Symptoms - Past Medical History Pertinent Past Medical History: Yes Cardiac History: High Cholesterol, Hypertension Respiratory History: Asthma Endocrine Medical History: Diabetes Type I, Hypothyroidism Musculoskeletal History: Arthritis Psycho-Social History: Anxiety, Panic Disorder Other Medical History: chronic pain - Past Surgical History Past Surgical History: Yes Musculoskeletal: Orthopedic Surgery Female Surgical History: Section Other Surgical History: arm, ankle - Social History Smoking Status: Never smoker Exposure to second hand smoke: No Drug Use: none Patient Lives Alone: No - Physical Exam General Appearance: no apparent distress Eye Exam: PERRL/EOMI Respiratory Exam: normal breath sounds, lungs clear, airway intact, No chest tenderness, No respiratory distress Cardiovascular Exam: regular rate/rhythm, normal heart sounds, normal peripheral pulses, capillary refill <2 sec Gastrointestinal/Abdomen Exam: soft, No tenderness, No distention Neurologic Exam: alert, oriented x 3, cooperative, applier II-XII nml as tested, normal mood/affect, sensation nml Skin Exam: normal color, warm, dry SpO2 Interpretation: normal SpO2: 99 O2 Delivery: Room Air - Nursing Vital Signs Nursing Vital Signs: Initial Vital Signs Temperature 97.9 F 02/07/24 05:34 Pulse Rate 81 02/07/24 05:34 Respiratory Rate 18 02/07/24 05:34 Blood Pressure 105/67 02/07/24 05:34 O2 Sat by Pulse Oximetry 100 02/07/24 05:34 Pain Scale Pain Intensity 0 - Course EKG Interpreted by Me: RATE (75), Sinus Rhythm, Non-specific ST Changes (not suggestive of ischemia), Other (qtcb 473, WI 100) Ordered Tests: Active Orders 24 hr Category Date Time Status EKG-ER Only STAT Care 02/07/24 05:38 Active CBC W DIFF Stat Lab 02/07/24 05:54 Completed CMP Stat Lab 02/07/24 05:54 Completed POCT GLUCOSE Stat Lab 02/07/24 06:03 Completed POCT GLUCOSE Stat Lab 02/07/24 07:22 Completed UA W/RFX UR CULTURE Stat Lab 02/07/24 07:28 Completed VBG [VENOUS BLOOD GAS] Stat Lab 02/07/24 06:00 Completed Medication Summary Generic Name Dose Route Start Last Admin Trade Name Freq PRN Reason Stop Dose Admin Dextrose 250 mls @ 10 mls/hr 02/07/24 06:00 02/07/24 06:42 Dextrose 10% 250 Ml IV 03/08/24 05:59 Not Given .Q24H MENDOZA Sodium Chloride 1,000 mls @ 100 mls/hr 02/07/24 06:15 02/07/24 06:44 Sodium Chloride 0.9% 1000 Ml IV 03/08/24 06:14 100 mls/hr .Q10H MENDOZA Administration Lab/Rad Data: Laboratory Result Diagrams 02/07/24 05:54 02/07/24 05:54 Laboratory Results 02/07/24 02/07/24 02/07/24 Range/Units 07:28 07:22 06:03 WBC (4.0-10.5) x10^3/uL RBC (4.1-5.4) x10^6/uL Hgb (12.0-16.0) g/dL Hct (35-47) % MCV (78-100) fL MCH (26-32) pg MCHC (32-36) g/dL RDW (11.5-14.0) % Plt Count (150-450) x10^3/uL MPV (7.5-11.0) fL Gran % (36.0-66.0) % Immature Gran % (Auto) (0.00-0.4) % Nucleat RBC Rel Count (0.00-0.1) % Eos # (Auto) (0-0.5) x10^3/uL Immature Gran # (Auto) (0.00-0.03) x10^3u/L Absolute Lymphs (auto) (1.0-4.6) x10^3/uL Absolute Monos (auto) (0.0-1.3) x10^3/uL Absolute Nucleated RBC (0.00-0.01) x10^3u/L Lymphocytes % (24.0-44.0) % Monocytes % (0.0-12.0) % Eosinophils % (0.00-5.0) % Basophils % (0.0-0.4) % Absolute Granulocytes (1.4-6.9) x10^3/uL Basophils # (0-0.4) x10^3/uL pO2/FiO2 Ratio % VBG pH (7.32-7.42) VBG pCO2 at Pat Temp (42-55) mm/Hg VBG pO2 at Pat Temp (25-40) mm/Hg VBG HCO3 (22-28) meq/L VBG O2 Sat (Nain) (95-100) VBG Base Excess (-2.0-2.0) VBG Hemoglobin VBG Carboxyhemoglobin (0.0-6.9) % T HGB POC Potassium (3.5-5.1) Sodium (135-145) mmol/L Potassium (3.5-5.1) mmol/L Chloride (98-107) mmol/L Carbon Dioxide (22-30) mmol/L Anion Gap (5-15) MEQ/L BUN (7-17) mg/dL Creatinine (0.52-1.04) mg/dL Estimated GFR ML/MIN Glucose (74-106) mg/dL POC Glucometer 137 H 128 H (74 to 106) mg/dL Calcium (8.4-10.2) mg/dL Total Bilirubin (0.2-1.3) mg/dL AST (14-36) U/L ALT (0-35) U/L Alkaline Phosphatase (38-126) U/L Serum Total Protein (6.3-8.2) g/dL Albumin (3.5-5.0) g/dL Urine Color Yellow (Yellow) Urine Appearance Clear (Clear) Urine pH 5.5 (4.6-8.0) Ur Specific [place] 1.010 (1.005-1.030) Urine Protein Negative (Negative) Urine Glucose (UA) 100 A (Negative) mg/dL Urine Ketones Negative (Negative) Urine Blood Negative (Negative) Urine Nitrite Negative (Negative) Urine Bilirubin Negative (Negative) Urine Urobilinogen 0.2 (0.2) mg/dL Ur Leukocyte Esterase Small A (Negative) U Hyaline Cast (Auto) NONE SEEN (0-2) /LPF Urine Microscopic RBC 0-2 (0-5) /HPF Urine Microscopic WBC 6-10 A (0-5) /HPF Ur Epithelial Cells Rare (None Seen) /HPF Urine Bacteria Rare A (None Seen) /HPF Urine Culture Reflexed NO (NO) 02/07/24 02/07/24 02/07/24 Range/Units 06:00 05:54 05:54 WBC 6.4 (4.0-10.5) x10^3/uL RBC 3.96 L (4.1-5.4) x10^6/uL Hgb 11.9 L (12.0-16.0) g/dL Hct 36.1 (35-47) % MCV 91.2 (78-100) fL MCH 30.1 (26-32) pg MCHC 33.0 (32-36) g/dL RDW 12.6 (11.5-14.0) % Plt Count 234 (150-450) x10^3/uL MPV 9.5 (7.5-11.0) fL Gran % 74.0 H (36.0-66.0) % Immature Gran % (Auto) 0.3 (0.00-0.4) % Nucleat RBC Rel Count 0.0 (0.00-0.1) % Eos # (Auto) 0.04 (0-0.5) x10^3/uL Immature Gran # (Auto) 0.02 (0.00-0.03) x10^3u/L Absolute Lymphs (auto) 1.11 (1.0-4.6) x10^3/uL Absolute Monos (auto) 0.46 (0.0-1.3) x10^3/uL Absolute Nucleated RBC 0.00 (0.00-0.01) x10^3u/L Lymphocytes % 17.4 L (24.0-44.0) % Monocytes % 7.2 (0.0-12.0) % Eosinophils % 0.6 (0.00-5.0) % Basophils % 0.5 (0.0-0.4) % Absolute Granulocytes 4.71 (1.4-6.9) x10^3/uL Basophils # 0.03 (0-0.4) x10^3/uL pO2/FiO2 Ratio 21.0 % VBG pH 7.40 (7.32-7.42) VBG pCO2 at Pat Temp 47 (42-55) mm/Hg VBG pO2 at Pat Temp 21 L (25-40) mm/Hg VBG HCO3 29.1 H* (22-28) meq/L VBG O2 Sat (Nain) 35.0 L (95-100) VBG Base Excess 3.5 H (-2.0-2.0) VBG Hemoglobin 12.5 VBG Carboxyhemoglobin 1.0 (0.0-6.9) % T HGB POC Potassium 4.1 (3.5-5.1) Sodium 134 L (135-145) mmol/L Potassium 3.9 (3.5-5.1) mmol/L Chloride 101 (98-107) mmol/L Carbon Dioxide 28 (22-30) mmol/L Anion Gap 8.4 (5-15) MEQ/L BUN 19 H (7-17) mg/dL Creatinine 0.66 (0.52-1.04) mg/dL Estimated GFR 104.2 ML/MIN Glucose 191 H (74-106) mg/dL POC Glucometer (74 to 106) mg/dL Calcium 8.5 (8.4-10.2) mg/dL Total Bilirubin 1.20 (0.2-1.3) mg/dL AST 23 (14-36) U/L ALT 20 (0-35) U/L Alkaline Phosphatase 89 (38-126) U/L Serum Total Protein 6.3 (6.3-8.2) g/dL Albumin 3.5 (3.5-5.0) g/dL Urine Color (Yellow) Urine Appearance (Clear) Urine pH (4.6-8.0) Ur Specific [place] (1.005-1.030) Urine Protein (Negative) Urine Glucose (UA) (Negative) mg/dL Urine Ketones (Negative) Urine Blood (Negative) Urine Nitrite (Negative) Urine Bilirubin (Negative) Urine Urobilinogen (0.2) mg/dL Ur Leukocyte Esterase (Negative) U Hyaline Cast (Auto) (0-2) /LPF Urine Microscopic RBC (0-5) /HPF Urine Microscopic WBC (0-5) /HPF Ur Epithelial Cells (None Seen) /HPF Urine Bacteria (None Seen) /HPF Urine Culture Reflexed (NO) - Progress Progress: improved Counseled pt/family regarding: lab results, diagnosis - Progress Progress Note: 02/07/24 06:14 pt received 250ml D10W, repeat BG 125 will continue w/ maintenance fluids NS 100ml/h lab workup pending, will repeat BG in 1h Omnipod removed at time of presentation to ED - pt reports her pump gave her 5u of insulin per hour overnight ekg showed sinus rhythm Pt reports feeling much better at this time, will continue to monitor 02/07/24 06:57 Pt stable, lab w/u pending I discussed pt case w/ Dr Barlow who will take over care at 07:00 (TOMY MELENDEZ) Medical Desision Making - Diagnostic Testing Diagnostic test were ordered, analyzed, and reviewed by me: No - Risk of complications Minimal Risk: Minimal risk of morbidity - Departure Departure Disposition: Home Critical Care Time: No - Departure Clinical Impression: Hypoglycemia due to type 1 diabetes mellitus Condition: Stable Referrals: JUANY RUBALCAVA [Primary Care Provider] - Follow up/PCP as directed
[2024-02-07 06:01] LABS: VBG BASE EXCESS 3.5 (-2.0-2.0); VBG HCO3- 29.1 meq/L (22-28); VBG HEMOGLOBIN 12.5; VBG POTASSIUM 4.1 (3.5-5.1); VBG pH 7.4 (7.32-7.42)
[2024-02-07 06:08] LABS: ALBUMIN 3.5 g/dL (3.5-5.0); ANION GAP 8.4 MEQ/L (5-15); BILIRUBIN,TOTAL 1.2 mg/dL (0.2-1.3); Calcium 8.5 mg/dL (8.4-10.2); Creatinine 1 0.66 mg/dL (0.52-1.04); EST GLOMERULAR FILTRATION RATE 104.2 ML/MIN; Potassium 3.9 mmol/L (3.5-5.1); Total Protein 6.3 g/dL (6.3-8.2)
[2024-02-07 06:42] VITALS: PULSE 72
[2024-02-07] MEDS: DEXTROSE 10% 250 ML 250 ML IV SCH (06:42)
[2024-02-07] MEDS ORDERED: Sodium Chloride 0.9% 1000 ML 1,000 ML ONE (06:43)
[2024-02-07] MEDS: Sodium Chloride 0.9% 1000 ML 1,000 ML IV SCH (06:44)
[2024-02-07 07:29] VITALS: BP 115/69; O2SAT 91
[2024-02-07 07:41] LABS: Appearance Clear (Clear); Bacteria Rare /HPF (None Seen); Bilirubin Negative (Negative); Blood Negative (Negative); Epithelial Cells Rare /HPF (None Seen); Glucose, Urine 100 mg/dL (Negative); Hyaline Casts NONE SEEN /LPF (0-2); Ketones Negative (Negative); Leukocyte Esterase Small (Negative); Nitrite Negative (Negative); Ph 5.5 (4.6-8.0); Protein,Urine Dip Negative (Negative); RBC 0-2 /HPF (0-5); Urobilinogen 0.2 mg/dL (0.2)
[2024-02-07 07:49] LABS: ADD URINE CULTURE? NO (NO)
== END 2024-02-07 08:15 | disposition home or self-care (01) ==
LOC: ED 05:31
DX: E10.649 Type 1 diabetes mellitus with hypoglycemia without coma (principal); E78.5 Hyperlipidemia, unspecified; I10 Essential (primary) hypertension; Z79.4 Long term (current) use of insulin; Z79.85 Long-term (current) use of injectable non-insulin antidiabetic drugs; Z79.891 Long term (current) use of opiate analgesic; Z79.899 Other long term (current) drug therapy; Z96.41 Presence of insulin pump (external) (internal)
CPT/HCPCS: 36415; 80053; 81001; 82805; 82947; 85025; 93005; 96360; 96361; 99284

== ENCOUNTER 2024-06-15 14:53 | Emergency (ER) | payer BC ==
--- NOTE | 2024-06-15 15:34 | ERPHSYRPT ---
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 insulin pump in [place] with her and the company is sending her a new one which is supposed to arrive today, pt states that her meter just read "HIGH" and she is also having a hard time breathing Triage Nursing Assessment: Pt was brought to the ER by a friend, vitals wnl, denies pain, blood sugar upon arrival was 446 with our meter, pulses normal, skin n/w/d, oxygen at 97% and does not appear to be in any distress, pt states that she is tired Physician History: Pt states about 9 hours ago she had a "Hi" reading for her blood glucose, had nausea today and shortness of air; denies chest pain, abdominal pain, vomiting, fever. Allergies/Adverse Reactions: No Known Drug Allergies Allergy (Verified 06/15/24 15:05) Home Medications: Hydrocodone/Acetaminophen [Hydrocodone-Acetamin 5-325 mg] 1 tab PO Q6H 11/29/21 [History] Insulin Lispro [Humalog] 0 unit SQ UD 11/29/21 [History] Levothyroxine Sodium [Euthyrox] 200 mcg PO DAILY 11/29/21 [History] Paroxetine HCl 20 mg [Paxil 20 MG] 30 mg PO DAILY 11/29/21 [History] Evolocumab [Repatha Syringe] 140 mg SQ UD 06/15/24 [History] Tirzepatide [Mounjaro] 12.5 mg SQ WEEKLY 06/15/24 [History] Hx Tetanus, Diphtheria Vaccination/Date Given: Yes (unsure) Hx Influenza Vaccination/Date Given: Yes Hx Pneumococcal Vaccination/Date Given: Yes Travel Risk - International Travel Have you traveled outside of the country in past 3 weeks: No - Emerging Infectious Disease Are you exhibiting symptoms associated with any current EIDs: Yes Symptoms: Shortness of Breath - Review of Systems Constitutional: No Fever Respiratory: Dyspnea Cardiac: No Chest Pain Abdominal/Gastrointestinal: Nausea, No Abdominal Pain, No Vomiting Genitourinary Symptoms: No Dysuria Neurological: No Headache - Past Medical History Pertinent Past Medical History: Yes Cardiac History: High Cholesterol, Hypertension Respiratory History: Asthma Endocrine Medical History: Diabetes Type I, Hypothyroidism Musculoskeletal History: Arthritis Psycho-Social History: Anxiety, Panic Disorder Other Medical History: chronic pain - Past Surgical History Past Surgical History: Yes Musculoskeletal: Orthopedic Surgery Female Surgical History: Section Other Surgical History: arm, ankle - Female History Hx Now: No (menopause) - Social History Smoking Status: Never smoker Exposure to second hand smoke: No Drug Use: none Patient Lives Alone: No - Social Determinants of Health Will the patient participate in the screening: Yes Do you worry about a steady place to live?: No Do you have any problems with any of the following?: No known problems In the past 12 months,have you had to go without utilities?: No Transportation Issues: No Has anyone in your support network made you feel unsafe?: No Have you or anyone in your house had to go without enough: No - Nursing Vital Signs Nursing Vital Signs: Initial Vital Signs Temperature 96.9 F 06/15/24 14:54 Pulse Rate 89 06/15/24 14:54 Respiratory Rate 17 06/15/24 14:54 Blood Pressure 108/71 06/15/24 14:54 O2 Sat by Pulse Oximetry 98 06/15/24 14:54 Pain Scale Pain Intensity 0 - Physical Exam General Appearance: alert Eye Exam: PERRL/EOMI Ears, Nose, Throat Exam: TMs normal, pharynx normal Neck Exam: normal inspection Respiratory Exam: lungs clear Cardiovascular Exam: normal heart sounds Gastrointestinal/Abdomen Exam: normal bowel sounds Extremity Exam: No pedal edema Neurologic Exam: alert, cooperative Skin Exam: warm, dry SpO2 Interpretation: normal SpO2: 98 O2 Delivery: Room Air - Course Nursing assessment & vital signs reviewed: Yes EKG Interpreted by Me: RATE (89), Sinus Rhythm, NORMAL AXIS, Other (QTc = 473) - Radiology Exams Chest X-ray Interpretation: Discussed w/ radiologist (No new/acute findings. See rest of report.) Ordered Tests: Active Orders 24 hr Category Date Time Status EKG-ER Only STAT Care 06/15/24 15:30 Active IV Insertion STAT Care 06/15/24 15:30 Active POCT Glucose Check STAT Care 06/15/24 15:36 Active CHEST 2 VIEWS (PA AND LAT) Stat Exams 06/15/24 15:32 Completed AMYLASE Stat Lab 06/15/24 15:20 Completed CBC W DIFF Stat Lab 06/15/24 15:20 Completed CMP Stat Lab 06/15/24 15:20 Completed HCG QUALITATIVE, SERUM Stat Lab 06/15/24 15:20 Completed LIPASE Stat Lab 06/15/24 15:20 Completed POCT GLUCOSE Stat Lab 06/15/24 17:24 Completed TROPONIN Q4H Lab 06/15/24 15:20 Completed TROPONIN Q4H Lab 06/15/24 19:45 Ordered TROPONIN Q4H Lab 06/15/24 23:45 Ordered UA W/RFX UR CULTURE Stat Lab 06/15/24 17:36 Completed VENOUS BLOOD GAS Stat Lab 06/15/24 15:54 Completed Medication Summary Generic Name Dose Route Start Last Admin Trade Name Freq PRN Reason Stop Dose Admin Sodium Chloride 1,000 mls @ 999 mls/hr 06/15/24 18:50 Sodium Chloride 0.9% 1000 Ml IV 06/15/24 19:50 .Q1H1M STA Discontinued Medications Generic Name Dose Route Start Last Admin Trade Name Freq PRN Reason Stop Dose Admin Sodium Chloride 1,000 mls @ 999 mls/hr 06/15/24 15:30 06/15/24 17:10 Sodium Chloride 0.9% 1000 Ml IV 06/15/24 16:30 Infused .Q1H1M STA Infusion Sodium Chloride Confirm 06/15/24 15:50 Sodium Chloride 0.9% 1000 Ml Administered 06/15/24 15:51 Dose 1,000 mls @ ud .ROUTE .STK-MED ONE Insulin Human Regular 8 unit 06/15/24 15:36 06/15/24 15:56 Insulin Regular, Human 1 Unit IV 06/15/24 15:37 8 unit STAT ONE Administration Insulin Human Regular Confirm 06/15/24 15:50 Insulin Regular, Human 1 Unit Administered 06/15/24 15:51 Dose 8 unit .ROUTE .STK-MED ONE Insulin Human Regular 6 unit 06/15/24 18:52 Insulin Regular, Human 1 Unit IV 06/15/24 18:53 STAT ONE Lab/Rad Data: Laboratory Result Diagrams 06/15/24 15:20 06/15/24 15:20 Laboratory Results 06/15/24 06/15/24 06/15/24 Range/Units 17:36 17:24 15:54 WBC (3.98-10.04) x10^3/uL RBC (3.93-5.22) x10^6/uL Hgb (11.2-15.7) g/dL Hct (34.1-44.9) % MCV (79.4-94.8) fL MCH (25.6-32.2) pg MCHC (32.2-35.5) g/dL RDW (11.7-14.4) % Plt Count (182-369) x10^3/uL MPV (9.4-12.3) fL Gran % (34.0-71.1) % Immature Gran % (Auto) (0.001-0.429) % Nucleat RBC Rel Count (0.00-0.2) % Eos # (Auto) (0.04-0.36) x10^3/uL Immature Gran # (Auto) (0.001-0.031) x10^3u/L Absolute Lymphs (auto) (1.18-3.74) x10^3/uL Absolute Monos (auto) (0.24-0.86) x10^3/uL Absolute Nucleated RBC (0.00-0.012) x10^3u/L Lymphocytes % (19.3-51.7) % Monocytes % (4.7-12.5) % Eosinophils % (0.7-5.8) % Basophils % (0.1-1.2) % Absolute Granulocytes (1.56-6.13) x10^3/uL Basophils # (0.01-0.08) x10^3/uL pO2/FiO2 Ratio 21.0 % VBG pH 7.31 L (7.32-7.42) VBG pCO2 at Pat Temp 33 L (42-55) mm/Hg VBG pO2 at Pat Temp 87 H (25-40) mm/Hg VBG HCO3 16.6 L* (22-28) meq/L VBG O2 Sat (Nain) 97.9 (95-100) VBG Base Excess -8.6 L (-2.0-2.0) VBG Hemoglobin 14.8 VBG Carboxyhemoglobin 3.9 (0.0-6.9) % T HGB POC Potassium 4.6 (3.5-5.1) Sodium (135-145) mmol/L Potassium (3.5-5.1) mmol/L Chloride (98-107) mmol/L Carbon Dioxide (22-30) mmol/L Anion Gap (5-15) MEQ/L BUN (7-17) mg/dL Creatinine (0.52-1.04) mg/dL Estimated GFR ML/MIN Glucose (74-106) mg/dL POC Glucometer 329 H (74 to 106) mg/dL Calcium (8.4-10.2) mg/dL Total Bilirubin (0.2-1.3) mg/dL AST (14-36) U/L ALT (0-35) U/L Alkaline Phosphatase (38-126) U/L Troponin I (0.000-0.033) ng/mL Serum Total Protein (6.3-8.2) g/dL Albumin (3.5-5.0) g/dL Amylase (30-110) U/L Lipase (23-300) U/L Serum HCG, Qual (NEGATIVE) Urine Color Yellow (Yellow) Urine Appearance Clear (Clear) Urine pH 5.5 (4.6-8.0) Ur Specific [place] >=1.030 A (1.005-1.030) Urine Protein Negative (Negative) Urine Glucose (UA) >=1000 A (Negative) mg/dL Urine Ketones >=160 A (Negative) Urine Blood Negative (Negative) Urine Nitrite Negative (Negative) Urine Bilirubin Negative (Negative) Urine Urobilinogen 0.2 (0.2) mg/dL Ur Leukocyte Esterase Negative (Negative) U Hyaline Cast (Auto) NONE SEEN (0-2) /LPF Urine Microscopic RBC 0-2 (0-5) /HPF Urine Microscopic WBC 0-2 (0-5) /HPF Ur Epithelial Cells Rare (None Seen) /HPF Urine Bacteria Rare A (None Seen) /HPF Urine Culture Reflexed NO (NO) 06/15/24 06/15/24 06/15/24 Range/Units 15:20 15:20 15:20 WBC (3.98-10.04) x10^3/uL RBC (3.93-5.22) x10^6/uL Hgb (11.2-15.7) g/dL Hct (34.1-44.9) % MCV (79.4-94.8) fL MCH (25.6-32.2) pg MCHC (32.2-35.5) g/dL RDW (11.7-14.4) % Plt Count (182-369) x10^3/uL MPV (9.4-12.3) fL Gran % (34.0-71.1) % Immature Gran % (Auto) (0.001-0.429) % Nucleat RBC Rel Count (0.00-0.2) % Eos # (Auto) (0.04-0.36) x10^3/uL Immature Gran # (Auto) (0.001-0.031) x10^3u/L Absolute Lymphs (auto) (1.18-3.74) x10^3/uL Absolute Monos (auto) (0.24-0.86) x10^3/uL Absolute Nucleated RBC (0.00-0.012) x10^3u/L Lymphocytes % (19.3-51.7) % Monocytes % (4.7-12.5) % Eosinophils % (0.7-5.8) % Basophils % (0.1-1.2) % Absolute Granulocytes (1.56-6.13) x10^3/uL Basophils # (0.01-0.08) x10^3/uL pO2/FiO2 Ratio % VBG pH (7.32-7.42) VBG pCO2 at Pat Temp (42-55) mm/Hg VBG pO2 at Pat Temp (25-40) mm/Hg VBG HCO3 (22-28) meq/L VBG O2 Sat (Nain) (95-100) VBG Base Excess (-2.0-2.0) VBG Hemoglobin VBG Carboxyhemoglobin (0.0-6.9) % T HGB POC Potassium (3.5-5.1) Sodium 139 (135-145) mmol/L Potassium 4.4 (3.5-5.1) mmol/L Chloride 103 (98-107) mmol/L Carbon Dioxide 13 L* (22-30) mmol/L Anion Gap 26.6 H (5-15) MEQ/L BUN 27 H (7-17) mg/dL Creatinine 0.87 (0.52-1.04) mg/dL Estimated GFR 79.1 ML/MIN Glucose 468 H (74-106) mg/dL POC Glucometer (74 to 106) mg/dL Calcium 9.8 (8.4-10.2) mg/dL Total Bilirubin 3.50 H (0.2-1.3) mg/dL AST 22 (14-36) U/L ALT 25 (0-35) U/L Alkaline Phosphatase 192 H (38-126) U/L Troponin I < 0.012 (0.000-0.033) ng/mL Serum Total Protein 7.0 (6.3-8.2) g/dL Albumin 4.5 (3.5-5.0) g/dL Amylase 50 (30-110) U/L Lipase 28 (23-300) U/L Serum HCG, Qual NEGATIVE (NEGATIVE) Urine Color (Yellow) Urine Appearance (Clear) Urine pH (4.6-8.0) Ur Specific [place] (1.005-1.030) Urine Protein (Negative) Urine Glucose (UA) (Negative) mg/dL Urine Ketones (Negative) Urine Blood (Negative) Urine Nitrite (Negative) Urine Bilirubin (Negative) Urine Urobilinogen (0.2) mg/dL Ur Leukocyte Esterase (Negative) U Hyaline Cast (Auto) (0-2) /LPF Urine Microscopic RBC (0-5) /HPF Urine Microscopic WBC (0-5) /HPF Ur Epithelial Cells (None Seen) /HPF Urine Bacteria (None Seen) /HPF Urine Culture Reflexed (NO) 06/15/24 Range/Units 15:20 WBC 10.5 H (3.98-10.04) x10^3/uL RBC 4.76 (3.93-5.22) x10^6/uL Hgb 14.2 (11.2-15.7) g/dL Hct 43.0 (34.1-44.9) % MCV 90.3 (79.4-94.8) fL MCH 29.8 (25.6-32.2) pg MCHC 33.0 (32.2-35.5) g/dL RDW 11.8 (11.7-14.4) % Plt Count 307 (182-369) x10^3/uL MPV 10.5 (9.4-12.3) fL Gran % 90.3 H (34.0-71.1) % Immature Gran % (Auto) 0.5 H (0.001-0.429) % Nucleat RBC Rel Count 0.0 (0.00-0.2) % Eos # (Auto) 0 L (0.04-0.36) x10^3/uL Immature Gran # (Auto) 0.05 H (0.001-0.031) x10^3u/L Absolute Lymphs (auto) 0.64 L (1.18-3.74) x10^3/uL Absolute Monos (auto) 0.26 (0.24-0.86) x10^3/uL Absolute Nucleated RBC 0.00 (0.00-0.012) x10^3u/L Lymphocytes % 6.1 L (19.3-51.7) % Monocytes % 2.5 L (4.7-12.5) % Eosinophils % 0.0 L (0.7-5.8) % Basophils % 0.6 (0.1-1.2) % Absolute Granulocytes 9.45 H (1.56-6.13) x10^3/uL Basophils # 0.06 (0.01-0.08) x10^3/uL pO2/FiO2 Ratio % VBG pH (7.32-7.42) VBG pCO2 at Pat Temp (42-55) mm/Hg VBG pO2 at Pat Temp (25-40) mm/Hg VBG HCO3 (22-28) meq/L VBG O2 Sat (Nain) (95-100) VBG Base Excess (-2.0-2.0) VBG Hemoglobin VBG Carboxyhemoglobin (0.0-6.9) % T HGB POC Potassium (3.5-5.1) Sodium (135-145) mmol/L Potassium (3.5-5.1) mmol/L Chloride (98-107) mmol/L Carbon Dioxide (22-30) mmol/L Anion Gap (5-15) MEQ/L BUN (7-17) mg/dL Creatinine (0.52-1.04) mg/dL Estimated GFR ML/MIN Glucose (74-106) mg/dL POC Glucometer (74 to 106) mg/dL Calcium (8.4-10.2) mg/dL Total Bilirubin (0.2-1.3) mg/dL AST (14-36) U/L ALT (0-35) U/L Alkaline Phosphatase (38-126) U/L Troponin I (0.000-0.033) ng/mL Serum Total Protein (6.3-8.2) g/dL Albumin (3.5-5.0) g/dL Amylase (30-110) U/L Lipase (23-300) U/L Serum HCG, Qual (NEGATIVE) Urine Color (Yellow) Urine Appearance (Clear) Urine pH (4.6-8.0) Ur Specific [place] (1.005-1.030) Urine Protein (Negative) Urine Glucose (UA) (Negative) mg/dL Urine Ketones (Negative) Urine Blood (Negative) Urine Nitrite (Negative) Urine Bilirubin (Negative) Urine Urobilinogen (0.2) mg/dL Ur Leukocyte Esterase (Negative) U Hyaline Cast (Auto) (0-2) /LPF Urine Microscopic RBC (0-5) /HPF Urine Microscopic WBC (0-5) /HPF Ur Epithelial Cells (None Seen) /HPF Urine Bacteria (None Seen) /HPF Urine Culture Reflexed (NO) - Progress Progress: improved Counseled pt/family regarding: lab results, diagnosis, need for follow-up, rad r esults Medical Desision Making - Diagnostic Testing Diagnostic test were ordered, analyzed, and reviewed by me: Yes Radiological Interpretation: Discussed w/ radiologist - Departure Departure Disposition: Home Clinical Impression: Hyperglycemia, Diabetes, Dyspnea, Nausea Condition: Stable Critical Care Time: No Referrals: JUANY RUBALCAVA [Primary Care Provider] - Follow up/PCP as directed Instructions: High Blood Sugar, Adult (DC), Shortness of Breath, Adult ED Additional Instructions: Follow up with private doctor tomorrow. Prescriptions: Ondansetron ODT 4 MG [Zofran Odt 4 mg] 4 mg PO Q6H PRN PRN #10 tablet PRN Reason: Nausea
[2024-06-15] MEDS ORDERED: Sodium Chloride 0.9% 1000 ML 1,000 ML ONE ×2 (15:50→19:27)
[2024-06-15] MEDS ORDERED: HUMULIN R ONE ×2 (15:50→19:22)
[2024-06-15 15:53] LABS: Absolute Neutrophil Ct (ANC) 9.45 x10^3/uL (1.56-6.13); BASOPHIL % 0.6 % (0.1-1.2); Basophil (Absolute #) 0.06 x10^3/uL (0.01-0.08); Eosinophil (Absolute #) 0 x10^3/uL (0.04-0.36); Hemoglobin 14.2 g/dL (11.2-15.7); IMMATURE GRAN # 0.05 x10^3u/L (0.001-0.031); IMMATURE GRAN % 0.5 % (0.001-0.429); Lymphocyte (Absolute #) 0.64 x10^3/uL (1.18-3.74); Lymphocytes % 6.1 % (19.3-51.7); Mean Cell Volume 90.3 fL (79.4-94.8); Mean Corpuscular Hemoglobin 29.8 pg (25.6-32.2); Mean Platelet Volume 10.5 fL (9.4-12.3); Monocyte (Absolute #) 0.26 x10^3/uL (0.24-0.86); Monocytes % 2.5 % (4.7-12.5); Neutrophil % 90.3 % (34.0-71.1); Platelet Count 307 x10^3/uL (182-369); Red Blood Count 4.76 x10^6/uL (3.93-5.22); Red Cell Distribution Width 11.8 % (11.7-14.4); White Blood Count 10.5 x10^3/uL (3.98-10.04)
[2024-06-15] MEDS: HUMULIN R IV ONE ×2 (15:56→19:24)
[2024-06-15] MEDS: Sodium Chloride 0.9% 1000 ML 1,000 ML IV STA ×2 (15:56→19:28)
[2024-06-15 15:57] LABS: VBG BASE EXCESS -8.6 (-2.0-2.0); VBG CARBOXYHEMOGLOBIN 3.9 % T HGB (0.0-6.9); VBG HCO3- 16.6 meq/L (22-28); VBG HEMOGLOBIN 14.8; VBG O2 SATURATION 97.9 (95-100); VBG POTASSIUM 4.6 (3.5-5.1); VBG pH 7.31 (7.32-7.42)
[2024-06-15 16:08] LABS: HCG SERUM TEST NEGATIVE (NEGATIVE)
[2024-06-15 16:11] LABS: ALBUMIN 4.5 g/dL (3.5-5.0); ANION GAP 26.6 MEQ/L (5-15); BILIRUBIN,TOTAL 3.5 mg/dL (0.2-1.3); Calcium 9.8 mg/dL (8.4-10.2); Creatinine 1 0.87 mg/dL (0.52-1.04); EST GLOMERULAR FILTRATION RATE 79.1 ML/MIN; Potassium 4.4 mmol/L (3.5-5.1)
--- NOTE | 2024-06-15 16:51 | XRAY ---
Indication: Dyspnea. Comparison: December 24, 2023 PA/lateral chest unchanged again with minimal left base fibrosis/scarring and tiny calcified granuloma. Remaining heart and lungs unremarkable. Bony thorax intact with mild degenerative changes. No new/acute findings.
[2024-06-15 17:02] VITALS: TEMP 98.8
[2024-06-15 18:20] LABS: Appearance Clear (Clear); Bilirubin Negative (Negative); Blood Negative (Negative); Epithelial Cells Rare /HPF (None Seen); Glucose, Urine >=1000 mg/dL (Negative); Hyaline Casts NONE SEEN /LPF (0-2); Ketones >=160 (Negative); Leukocyte Esterase Negative (Negative); Nitrite Negative (Negative); Ph 5.5 (4.6-8.0); Protein,Urine Dip Negative (Negative); RBC 0-2 /HPF (0-5); Specific Gravity >=1.030 (1.005-1.030); Urobilinogen 0.2 mg/dL (0.2)
[2024-06-15 18:35] LABS: ADD URINE CULTURE? NO (NO); Bacteria Rare /HPF (None Seen); WBC 0-2 /HPF (0-5)
[2024-06-15 20:13] VITALS: BP 122/67; PULSE 109; RESP 23; O2SAT 97
== END 2024-06-15 20:35 | disposition home or self-care (01) ==
LOC: ED 14:53
DX: E10.65 Type 1 diabetes mellitus with hyperglycemia (principal); R06.00 Dyspnea, unspecified; R11.0 Nausea; E78.5 Hyperlipidemia, unspecified; I10 Essential (primary) hypertension; Z79.85 Long-term (current) use of injectable non-insulin antidiabetic drugs; Z79.4 Long term (current) use of insulin; Z79.899 Other long term (current) drug therapy
CPT/HCPCS: 36000; 36415; 71046; 80053; 81001; 82150; 82805; 82947; 83690; 84484; 84703; 85025; 93005; 96374; 96375; 99284; J1815

== ENCOUNTER 2024-06-16 11:36 | Inpatient (IN) | payer BC ==
--- NOTE | 2024-06-16 11:56 | ERPHSYRPT ---
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 Upon arrival to the emergency department, the patient has a blood sugar level of 473. Patient was seen here yesterday per patient's daughter's report. Patient's daughter provided additional, independent history because the patient has altered mental status and has been very sleepy for the last 2 days. Patient's daughter stated that the patient was discharged to home on 06/15/2024 at approximately 9 PM from our emergency department. The clinical impression was hyperglycemia dyspnea nausea. However, I reviewed that stay and the labs and it appears to me the patient actually is in DKA. Surprisingly, the patient's symptoms have not improved. In fact patient stated that she started vomiting early this morning several times. Patient's insulin pump has not been working for the last few days and was supposed to receive a new one today. Prior to arrival, and based on the blood sugar of approximately 480, the patient was given 30 units of short acting insulin by the patient's daughter. Patient also has a history of anxiety, panic disorder, hyperlipidemia and hypothyroidism. Patient denies chest pain. Patient denies abdominal pain. Timing/Duration: day(s), worse Severity: moderate Modifying Factors: Improves With: nothing Associated Symptoms: nausea, vomiting, weakness, No abdominal pain, No shortness of breath, No chest pain Allergies/Adverse Reactions: No Known Drug Allergies Allergy (Verified 06/16/24 11:49) Home Medications: Hydrocodone/Acetaminophen [Hydrocodone-Acetamin 5-325 mg] 1 tab PO Q6H 11/29/21 [History] Insulin Lispro [Humalog] 0 unit SQ UD 11/29/21 [History] Levothyroxine Sodium [Euthyrox] 200 mcg PO DAILY 11/29/21 [History] Paroxetine HCl 20 mg [Paxil 20 MG] 30 mg PO DAILY 11/29/21 [History] Evolocumab [Repatha Syringe] 140 mg SQ UD 06/15/24 [History] Tirzepatide [Mounjaro] 12.5 mg SQ WEEKLY 06/15/24 [History] Hx Tetanus, Diphtheria Vaccination/Date Given: Yes (unsure) Hx Influenza Vaccination/Date Given: Yes Hx Pneumococcal Vaccination/Date Given: Yes Travel Risk - Emerging Infectious Disease Are you exhibiting symptoms associated with any current EIDs: Yes Symptoms: Shortness of Breath - Review of Systems Constitutional: Lethargy, Weakness Eyes: No Symptoms Ears, Nose, & Throat: No Symptoms Respiratory: No Symptoms Cardiac: No Symptoms Abdominal/Gastrointestinal: Nausea, Vomiting, Appetite Changes, No Abdominal Pain, No Diarrhea Genitourinary Symptoms: No Symptoms Musculoskeletal: No Symptoms Skin: No Symptoms Neurological: Other (Altered mental status, lethargic.) Psychological: No Symptoms Endocrine: No Symptoms Hematologic/Lymphatic: No Symptoms Immunological/Allergic: No Symptoms All Other Systems: Reviewed and Negative - Past Medical History Pertinent Past Medical History: Yes Cardiac History: High Cholesterol, Hypertension Respiratory History: Asthma Endocrine Medical History: Diabetes Type I, Hypothyroidism Musculoskeletal History: Arthritis Psycho-Social History: Anxiety, Panic Disorder Other Medical History: chronic pain - Past Surgical History Past Surgical History: Yes Musculoskeletal: Orthopedic Surgery Female Surgical History: Section Other Surgical History: arm, ankle - Social History Smoking Status: Never smoker Exposure to second hand smoke: No Drug Use: none Patient Lives Alone: No - Social Determinants of Health Will the patient participate in the screening: Yes Do you worry about a steady place to live?: No In the past 12 months,have you had to go without utilities?: No Transportation Issues: No Has anyone in your support network made you feel unsafe?: No Have you or anyone in your house had to go without enough: No - Nursing Vital Signs Nursing Vital Signs: Initial Vital Signs Temperature 98.3 F 06/16/24 11:37 Pulse Rate 113 H 06/16/24 11:37 Respiratory Rate 24 06/16/24 11:37 Blood Pressure 136/69 06/16/24 11:37 O2 Sat by Pulse Oximetry 100 06/16/24 11:37 Pain Scale Pain Intensity 0 - Physical Exam General Appearance: lethargy (But arousable and answers questions appropriately), obese Eye Exam: PERRL/EOMI, eyes nml inspection Ears, Nose, Throat Exam: normal ENT inspection, dry mucous membranes Neck Exam: normal inspection, non-tender, supple, full range of motion Respiratory Exam: normal breath sounds, lungs clear, airway intact, No chest tenderness, No respiratory distress Cardiovascular Exam: tachycardia Gastrointestinal/Abdomen Exam: soft, normal bowel sounds, No tenderness Pelvic Exam: not done Rectal Exam: not done Back Exam: normal inspection, normal range of motion, No CVA tenderness, No vertebral tenderness Extremity Exam: normal inspection, normal range of motion, pelvis stable Neurologic Exam: oriented x 3 (Once she is arousable she answers questions appropriately), powder loader II-XII nml as tested, sensation nml, No cooperative, No facial droop, No slurred speech Skin Exam: normal color, warm, dry Lymphatic Exam: No adenopathy SpO2 Interpretation: normal O2 Delivery: Room Air - Course Nursing assessment & vital signs reviewed: Yes Ordered Tests: Active Orders 24 hr Category Date Time Status [employer] Supervisor STAT Care 06/16/24 11:59 Active IV Insertion STAT Care 06/16/24 11:58 Active IV Insertion-2nd Peripheral STAT Care 06/16/24 13:49 Active Pulse Oximetry (ED) STAT Care 06/16/24 11:58 Active HEAD WITHOUT CONTRAST [CT] Stat Exams 06/16/24 12:26 Completed ABG [ARTERIAL BLOOD GASES] Stat Lab 06/16/24 14:12 Completed ABG [ARTERIAL BLOOD GASES] Stat Lab 06/16/24 15:13 Completed CBC W DIFF Stat Lab 06/16/24 13:25 Completed CMP Stat Lab 06/16/24 13:25 Completed CMP Stat Lab 06/16/24 15:13 Completed ETHYL ALCOHOL Stat Lab 06/16/24 13:25 Completed Lactic Acid Stat Lab 06/16/24 16:00 Completed Lactic Acid Urgent Lab 06/16/24 11:55 Completed MAGNESIUM Stat Lab 06/16/24 13:25 Completed POCT GLUCOSE Stat Lab 06/16/24 11:43 Completed POCT GLUCOSE Stat Lab 06/16/24 13:21 Completed POCT GLUCOSE Stat Lab 06/16/24 15:00 Completed UA W/RFX UR CULTURE Stat Lab 06/16/24 14:10 Completed VENOUS BLOOD GAS Stat Lab 06/16/24 11:55 Completed Transfer Order Routine Transfer 06/16/24 Ordered Medication Summary Discontinued Medications Generic Name Dose Route Start Last Admin Trade Name Freq PRN Reason Stop Dose Admin Sodium Chloride 1,000 mls @ 999 mls/hr 06/16/24 11:58 06/16/24 13:13 Sodium Chloride 0.9% 1000 Ml IV 06/16/24 12:58 Infused .Q1H1M STA Infusion Sodium Chloride Confirm 06/16/24 12:01 Sodium Chloride 0.9% 1000 Ml Administered 06/16/24 12:02 Dose 1,000 mls @ ud .ROUTE .STK-MED ONE Lactated Ringer's 1,000 mls @ 999 mls/hr 06/16/24 14:00 06/16/24 15:09 Lactated Ringers IV 06/16/24 15:00 Infused .Q1H1M ONE Infusion Lactated Ringer's Confirm 06/16/24 14:05 Lactated Ringers Administered 06/16/24 14:06 Dose 1,000 mls @ ud IV .STK-MED ONE Lactated Ringer's 1,000 mls @ 999 mls/hr 06/16/24 15:14 06/16/24 15:18 Lactated Ringers IV 06/16/24 16:14 999 mls/hr .Q1H1M ONE Administration Lactated Ringer's Confirm 06/16/24 15:17 Lactated Ringers Administered 06/16/24 15:18 Dose 1,000 mls @ ud IV .STK-MED ONE Insulin Human Regular 6 unit 06/16/24 13:49 06/16/24 14:08 Insulin Regular, Human 1 Unit IV 06/16/24 13:50 6 unit STAT ONE Administration Insulin Human Regular Confirm 06/16/24 14:05 Insulin Regular, Human 1 Unit Administered 06/16/24 14:06 Dose 6 unit .ROUTE .STK-MED ONE Lab/Rad Data: Laboratory Result Diagrams 06/16/24 13:25 06/16/24 15:13 Laboratory Results 06/16/24 06/16/24 06/16/24 Range/Units 16:00 15:13 15:13 WBC (3.98-10.04) x10^3/uL RBC (3.93-5.22) x10^6/uL Hgb (11.2-15.7) g/dL Hct (34.1-44.9) % MCV (79.4-94.8) fL MCH (25.6-32.2) pg MCHC (32.2-35.5) g/dL RDW (11.7-14.4) % Plt Count (182-369) x10^3/uL MPV (9.4-12.3) fL Gran % (34.0-71.1) % Immature Gran % (Auto) (0.001-0.429) % Nucleat RBC Rel Count (0.00-0.2) % Eos # (Auto) (0.04-0.36) x10^3/uL Immature Gran # (Auto) (0.001-0.031) x10^3u/L Absolute Lymphs (auto) (1.18-3.74) x10^3/uL Absolute Monos (auto) (0.24-0.86) x10^3/uL Absolute Nucleated RBC (0.00-0.012) x10^3u/L Lymphocytes % (19.3-51.7) % Monocytes % (4.7-12.5) % Eosinophils % (0.7-5.8) % Basophils % (0.1-1.2) % Absolute Granulocytes (1.56-6.13) x10^3/uL Basophils # (0.01-0.08) x10^3/uL Puncture Site RIGHT BRACHIAL pCO2 20 L* (35-45) mmHg pO2 111 H (75-100) mmHg pO2/FiO2 Ratio % Base Excess -8.5 L (-2.0-2.0) O2 Saturation 96.4 (94-100) g/dF ABG pH 7.44 (7.35-7.45) ABG HCO3 13.6 L* (22-28) ABG O2 Sat (Measured) 99.9 (95-100) % Bobby Test NOT APPLICABLE VBG pH (7.32-7.42) VBG pCO2 at Pat Temp (42-55) mm/Hg VBG pO2 at Pat Temp (25-40) mm/Hg VBG HCO3 (22-28) meq/L VBG O2 Sat (Nain) (95-100) VBG Base Excess (-2.0-2.0) VBG Hemoglobin VBG Carboxyhemoglobin (0.0-6.9) % T HGB A-a Gradient 14 a/A Ratio 0.89 Hemoglobin 11.9 Carboxyhemoglobin 2.5 (0.0-6.9) % THgb Methemoglobin 1.0 L (1.4-1.5) % POC Potassium (3.5-5.1) Temperature 37.0 C POC O2 Flow Rate 21 % Sodium 141 (135-145) mmol/L Potassium 3.8 3.9 (3.5-5.1) mmol/L Chloride 115 H (98-107) mmol/L Carbon Dioxide 13 L* (22-30) mmol/L Anion Gap 17.2 H (5-15) MEQ/L BUN 28 H (7-17) mg/dL Creatinine 0.94 (0.52-1.04) mg/dL Estimated GFR 72.1 ML/MIN Glucose 217 H (74-106) mg/dL POC Glucometer (74 to 106) mg/dL Lactic Acid 3.0 H (0.4-2.0) Calcium 9.1 (8.4-10.2) mg/dL Magnesium (1.6-2.3) mg/dL Total Bilirubin 2.90 H (0.2-1.3) mg/dL AST 25 (14-36) U/L ALT 27 (0-35) U/L Alkaline Phosphatase 101 (38-126) U/L Serum Total Protein 6.0 L (6.3-8.2) g/dL Albumin 3.5 (3.5-5.0) g/dL Urine Color (Yellow) Urine Appearance (Clear) Urine pH (4.6-8.0) Ur Specific [place] (1.005-1.030) Urine Protein (Negative) Urine Glucose (UA) (Negative) mg/dL Urine Ketones (Negative) Urine Blood (Negative) Urine Nitrite (Negative) Urine Bilirubin (Negative) Urine Urobilinogen (0.2) mg/dL Ur Leukocyte Esterase (Negative) U Hyaline Cast (Auto) (0-2) /LPF Urine Microscopic RBC (0-5) /HPF Urine Microscopic WBC (0-5) /HPF Ur Epithelial Cells (None Seen) /HPF Urine Bacteria (None Seen) /HPF Urine Culture Reflexed (NO) Ethyl Alcohol (0-10) mg/dL Slides for Path Review 06/16/24 06/16/24 06/16/24 Range/Units 15:00 14:12 14:10 WBC (3.98-10.04) x10^3/uL RBC (3.93-5.22) x10^6/uL Hgb (11.2-15.7) g/dL Hct (34.1-44.9) % MCV (79.4-94.8) fL MCH (25.6-32.2) pg MCHC (32.2-35.5) g/dL RDW (11.7-14.4) % Plt Count (182-369) x10^3/uL MPV (9.4-12.3) fL Gran % (34.0-71.1) % Immature Gran % (Auto) (0.001-0.429) % Nucleat RBC Rel Count (0.00-0.2) % Eos # (Auto) (0.04-0.36) x10^3/uL Immature Gran # (Auto) (0.001-0.031) x10^3u/L Absolute Lymphs (auto) (1.18-3.74) x10^3/uL Absolute Monos (auto) (0.24-0.86) x10^3/uL Absolute Nucleated RBC (0.00-0.012) x10^3u/L Lymphocytes % (19.3-51.7) % Monocytes % (4.7-12.5) % Eosinophils % (0.7-5.8) % Basophils % (0.1-1.2) % Absolute Granulocytes (1.56-6.13) x10^3/uL Basophils # (0.01-0.08) x10^3/uL Puncture Site NA pCO2 13 L* (35-45) mmHg pO2 112 H (75-100) mmHg pO2/FiO2 Ratio % Base Excess -16.5 L (-2.0-2.0) O2 Saturation 96.1 (94-100) g/dF ABG pH 7.32 L (7.35-7.45) ABG HCO3 6.7 L* (22-28) ABG O2 Sat (Measured) 99.0 (95-100) % Bobby Test RB VBG pH (7.32-7.42) VBG pCO2 at Pat Temp (42-55) mm/Hg VBG pO2 at Pat Temp (25-40) mm/Hg VBG HCO3 (22-28) meq/L VBG O2 Sat (Nain) (95-100) VBG Base Excess (-2.0-2.0) VBG Hemoglobin VBG Carboxyhemoglobin (0.0-6.9) % T HGB A-a Gradient 21 a/A Ratio 0.84 Hemoglobin 13.2 Carboxyhemoglobin 1.8 (0.0-6.9) % THgb Methemoglobin 1.1 L (1.4-1.5) % POC Potassium (3.5-5.1) Temperature 37.0 C POC O2 Flow Rate 21 % Sodium (135-145) mmol/L Potassium 4.2 (3.5-5.1) mmol/L Chloride (98-107) mmol/L Carbon Dioxide (22-30) mmol/L Anion Gap (5-15) MEQ/L BUN (7-17) mg/dL Creatinine (0.52-1.04) mg/dL Estimated GFR ML/MIN Glucose (74-106) mg/dL POC Glucometer 221 H (74 to 106) mg/dL Lactic Acid (0.4-2.0) Calcium (8.4-10.2) mg/dL Magnesium (1.6-2.3) mg/dL Total Bilirubin (0.2-1.3) mg/dL AST (14-36) U/L ALT (0-35) U/L Alkaline Phosphatase (38-126) U/L Serum Total Protein (6.3-8.2) g/dL Albumin (3.5-5.0) g/dL Urine Color Yellow (Yellow) Urine Appearance Clear (Clear) Urine pH 5.0 (4.6-8.0) Ur Specific [place] 1.025 (1.005-1.030) Urine Protein Negative (Negative) Urine Glucose (UA) >=1000 A (Negative) mg/dL Urine Ketones >=160 A (Negative) Urine Blood Negative (Negative) Urine Nitrite Negative (Negative) Urine Bilirubin Negative (Negative) Urine Urobilinogen 0.2 (0.2) mg/dL Ur Leukocyte Esterase Negative (Negative) U Hyaline Cast (Auto) NONE SEEN (0-2) /LPF Urine Microscopic RBC 3-5 (0-5) /HPF Urine Microscopic WBC 0-2 (0-5) /HPF Ur Epithelial Cells None Seen (None Seen) /HPF Urine Bacteria Few A (None Seen) /HPF Urine Culture Reflexed NO (NO) Ethyl Alcohol (0-10) mg/dL Slides for Path Review 06/16/24 06/16/24 06/16/24 Range/Units 13:25 13:25 13:21 WBC 23.9 H (3.98-10.04) x10^3/uL RBC 4.34 (3.93-5.22) x10^6/uL Hgb 12.9 (11.2-15.7) g/dL Hct 40.9 (34.1-44.9) % MCV 94.2 (79.4-94.8) fL MCH 29.7 (25.6-32.2) pg MCHC 31.5 L (32.2-35.5) g/dL RDW 12.4 (11.7-14.4) % Plt Count 385 H (182-369) x10^3/uL MPV 9.9 (9.4-12.3) fL Gran % 89.9 H (34.0-71.1) % Immature Gran % (Auto) 0.8 H (0.001-0.429) % Nucleat RBC Rel Count 0.0 (0.00-0.2) % Eos # (Auto) 0.01 L (0.04-0.36) x10^3/uL Immature Gran # (Auto) 0.19 H (0.001-0.031) x10^3u/L Absolute Lymphs (auto) 1.07 L (1.18-3.74) x10^3/uL Absolute Monos (auto) 1.09 H (0.24-0.86) x10^3/uL Absolute Nucleated RBC 0.00 (0.00-0.012) x10^3u/L Lymphocytes % 4.5 L (19.3-51.7) % Monocytes % 4.6 L (4.7-12.5) % Eosinophils % 0.0 L (0.7-5.8) % Basophils % 0.2 (0.1-1.2) % Absolute Granulocytes 21.47 H (1.56-6.13) x10^3/uL Basophils # 0.04 (0.01-0.08) x10^3/uL Puncture Site pCO2 (35-45) mmHg pO2 (75-100) mmHg pO2/FiO2 Ratio % Base Excess (-2.0-2.0) O2 Saturation (94-100) g/dF ABG pH (7.35-7.45) ABG HCO3 (22-28) ABG O2 Sat (Measured) (95-100) % Bobby Test VBG pH (7.32-7.42) VBG pCO2 at Pat Temp (42-55) mm/Hg VBG pO2 at Pat Temp (25-40) mm/Hg VBG HCO3 (22-28) meq/L VBG O2 Sat (Nain) (95-100) VBG Base Excess (-2.0-2.0) VBG Hemoglobin VBG Carboxyhemoglobin (0.0-6.9) % T HGB A-a Gradient a/A Ratio Hemoglobin Carboxyhemoglobin (0.0-6.9) % THgb Methemoglobin (1.4-1.5) % POC Potassium (3.5-5.1) Temperature C POC O2 Flow Rate % Sodium 142 (135-145) mmol/L Potassium 4.1 (3.5-5.1) mmol/L Chloride 116 H D (98-107) mmol/L Carbon Dioxide < 5 L* (22-30) mmol/L Anion Gap (5-15) MEQ/L BUN 29 H (7-17) mg/dL Creatinine 1.11 H (0.52-1.04) mg/dL Estimated GFR 59.1 ML/MIN Glucose 315 H (74-106) mg/dL POC Glucometer 360 H (74 to 106) mg/dL Lactic Acid (0.4-2.0) Calcium 9.4 (8.4-10.2) mg/dL Magnesium 2.1 (1.6-2.3) mg/dL Total Bilirubin 3.40 H (0.2-1.3) mg/dL AST 29 (14-36) U/L ALT 36 H (0-35) U/L Alkaline Phosphatase 119 (38-126) U/L Serum Total Protein 6.9 (6.3-8.2) g/dL Albumin 4.2 (3.5-5.0) g/dL Urine Color (Yellow) Urine Appearance (Clear) Urine pH (4.6-8.0) Ur Specific [place] (1.005-1.030) Urine Protein (Negative) Urine Glucose (UA) (Negative) mg/dL Urine Ketones (Negative) Urine Blood (Negative) Urine Nitrite (Negative) Urine Bilirubin (Negative) Urine Urobilinogen (0.2) mg/dL Ur Leukocyte Esterase (Negative) U Hyaline Cast (Auto) (0-2) /LPF Urine Microscopic RBC (0-5) /HPF Urine Microscopic WBC (0-5) /HPF Ur Epithelial Cells (None Seen) /HPF Urine Bacteria (None Seen) /HPF Urine Culture Reflexed (NO) Ethyl Alcohol < 10 (0-10) mg/dL Slides for Path Review YES 06/16/24 06/16/24 06/16/24 Range/Units 11:55 11:55 11:43 WBC (3.98-10.04) x10^3/uL RBC (3.93-5.22) x10^6/uL Hgb (11.2-15.7) g/dL Hct (34.1-44.9) % MCV (79.4-94.8) fL MCH (25.6-32.2) pg MCHC (32.2-35.5) g/dL RDW (11.7-14.4) % Plt Count (182-369) x10^3/uL MPV (9.4-12.3) fL Gran % (34.0-71.1) % Immature Gran % (Auto) (0.001-0.429) % Nucleat RBC Rel Count (0.00-0.2) % Eos # (Auto) (0.04-0.36) x10^3/uL Immature Gran # (Auto) (0.001-0.031) x10^3u/L Absolute Lymphs (auto) (1.18-3.74) x10^3/uL Absolute Monos (auto) (0.24-0.86) x10^3/uL Absolute Nucleated RBC (0.00-0.012) x10^3u/L Lymphocytes % (19.3-51.7) % Monocytes % (4.7-12.5) % Eosinophils % (0.7-5.8) % Basophils % (0.1-1.2) % Absolute Granulocytes (1.56-6.13) x10^3/uL Basophils # (0.01-0.08) x10^3/uL Puncture Site pCO2 (35-45) mmHg pO2 (75-100) mmHg pO2/FiO2 Ratio 21.0 % Base Excess (-2.0-2.0) O2 Saturation (94-100) g/dF ABG pH (7.35-7.45) ABG HCO3 (22-28) ABG O2 Sat (Measured) (95-100) % Bobby Test VBG pH 7.16 L* (7.32-7.42) VBG pCO2 at Pat Temp 27 L (42-55) mm/Hg VBG pO2 at Pat Temp 45 H (25-40) mm/Hg VBG HCO3 9.6 L* (22-28) meq/L VBG O2 Sat (Nain) 75.9 L (95-100) VBG Base Excess -17.6 L (-2.0-2.0) VBG Hemoglobin 13.6 VBG Carboxyhemoglobin 3.7 (0.0-6.9) % T HGB A-a Gradient a/A Ratio Hemoglobin Carboxyhemoglobin (0.0-6.9) % THgb Methemoglobin (1.4-1.5) % POC Potassium 5.0 (3.5-5.1) Temperature C POC O2 Flow Rate % Sodium (135-145) mmol/L Potassium (3.5-5.1) mmol/L Chloride (98-107) mmol/L Carbon Dioxide (22-30) mmol/L Anion Gap (5-15) MEQ/L BUN (7-17) mg/dL Creatinine (0.52-1.04) mg/dL Estimated GFR ML/MIN Glucose (74-106) mg/dL POC Glucometer 473 H (74 to 106) mg/dL Lactic Acid 5.3 H (0.4-2.0) Calcium (8.4-10.2) mg/dL Magnesium (1.6-2.3) mg/dL Total Bilirubin (0.2-1.3) mg/dL AST (14-36) U/L ALT (0-35) U/L Alkaline Phosphatase (38-126) U/L Serum Total Protein (6.3-8.2) g/dL Albumin (3.5-5.0) g/dL Urine Color (Yellow) Urine Appearance (Clear) Urine pH (4.6-8.0) Ur Specific [place] (1.005-1.030) Urine Protein (Negative) Urine Glucose (UA) (Negative) mg/dL Urine Ketones (Negative) Urine Blood (Negative) Urine Nitrite (Negative) Urine Bilirubin (Negative) Urine Urobilinogen (0.2) mg/dL Ur Leukocyte Esterase (Negative) U Hyaline Cast (Auto) (0-2) /LPF Urine Microscopic RBC (0-5) /HPF Urine Microscopic WBC (0-5) /HPF Ur Epithelial Cells (None Seen) /HPF Urine Bacteria (None Seen) /HPF Urine Culture Reflexed (NO) Ethyl Alcohol (0-10) mg/dL Slides for Path Review - Progress Progress: improved Progress Note: 06/16/24 12:45 My medical decision making and the assignment of moderate to high complexity on this patient's medical issue today is based on review of the patient's past medical history, review of the patient's last emergency room visit on 06/15/2024 and the associated laboratory data workup, discussion with the patient's daughter, review of the patient's medication list, review the patient's drug allergy list, history present illness and physical findings on examination. The workup in this patient includes IV line placement, intravenous crystalloid, antiemetic, CBC, CMP, amylase, lipase, lactic acid, urinalysis, CT scan of the head and [id number] glucose level on admission to the emergency department. Differential diagnosis includes but is not limited to hyperglycemia, DKA, acute intracranial abnormality, electrolyte abnormality, urinary tract infection 06/16/24 14:12 CT scan of the head without contrast was interpreted by the radiologist and I reviewed the impression. Today's CT scan of the head without contrast was compared to similar study dated 09/28/2022. The impression reads normal CT scan of the head without contrast exam. 06/16/24 16:10 I interpreted the patient's laboratory data results. The patient has DKA. I spoke with Dr. He, the telehospitalist. We agreed I would provide the patient with an additional liter of crystalloid and repeat an ABG and CMP to show after rehydration, her blood work was improving. Also, clinically the patient is becoming more awake and alert. The telehospitalist will be contacted and patient will be admitted into the ICU setting. Counseled pt/family regarding: lab results, diagnosis, rad results Medical Desision Making - Independent Historian Additional History obtained from: Family - Diagnostic Testing Diagnostic test were ordered, analyzed, and reviewed by me: Yes Radiological Interpretation: Reviewed by me, Teleradiologist Report - Risk of complications The pt has a high risk of morbidity or mortality based on: Decision regarding hospitilization or escalation of hosp level of care - Departure Departure Disposition: In-patient Admission Clinical Impression: DKA (diabetic ketoacidosis), Lethargy Condition: Fair Critical Care Time: Yes Critical Care Time(excluding separately billable procedures): Critical 30-74 mins (50) Referrals: JUANY RUBALCAVA [Primary Care Provider] - Follow up/PCP as directed
[2024-06-16] MEDS ORDERED: Sodium Chloride 0.9% 1000 ML 1,000 ML ONE (12:01)
[2024-06-16] MEDS: Sodium Chloride 0.9% 1000 ML 1,000 ML IV STA (12:07)
--- NOTE | 2024-06-16 13:22 | XRAY ---
Indication: Altered mental status. Multiple contiguous axial images obtained through the head without contrast. Comparison: September 28, 2022 Normal appearing brain parenchyma, ventricles, and bony calvarium. Visualized paranasal sinuses and mastoid air cells are clear. Impression: Continued normal CT head without contrast exam.
[2024-06-16 13:51] LABS: Absolute Neutrophil Ct (ANC) 21.47 x10^3/uL (1.56-6.13); BASOPHIL % 0.2 % (0.1-1.2); Basophil (Absolute #) 0.04 x10^3/uL (0.01-0.08); Eosinophil (Absolute #) 0.01 x10^3/uL (0.04-0.36); Hematocrit 40.9 % (34.1-44.9); Hemoglobin 12.9 g/dL (11.2-15.7); IMMATURE GRAN # 0.19 x10^3u/L (0.001-0.031); IMMATURE GRAN % 0.8 % (0.001-0.429); Lymphocyte (Absolute #) 1.07 x10^3/uL (1.18-3.74); Lymphocytes % 4.5 % (19.3-51.7); Mean Cell Volume 94.2 fL (79.4-94.8); Mean Corpuscular Hemoglobin 29.7 pg (25.6-32.2); Mean Corpuscular Hgb Concent. 31.5 g/dL (32.2-35.5); Mean Platelet Volume 9.9 fL (9.4-12.3); Monocyte (Absolute #) 1.09 x10^3/uL (0.24-0.86); Monocytes % 4.6 % (4.7-12.5); Neutrophil % 89.9 % (34.0-71.1); Platelet Count 385 x10^3/uL (182-369); Red Blood Count 4.34 x10^6/uL (3.93-5.22); Red Cell Distribution Width 12.4 % (11.7-14.4); White Blood Count 23.9 x10^3/uL (3.98-10.04)
[2024-06-16 14:02] LABS: VBG BASE EXCESS -17.6 (-2.0-2.0); VBG CARBOXYHEMOGLOBIN 3.7 % T HGB (0.0-6.9); VBG HCO3- 9.6 meq/L (22-28); VBG HEMOGLOBIN 13.6; VBG O2 SATURATION 75.9 (95-100); VBG pH 7.16 (7.32-7.42)
[2024-06-16] MEDS ORDERED: HUMULIN R ONE (14:05)
[2024-06-16] MEDS ORDERED: Lactated Ringers 1,000 ML IV ONE ×2 (14:05→15:17)
[2024-06-16] MEDS: Lactated Ringers 1,000 ML IV ONE ×2 (14:08→15:18)
[2024-06-16] MEDS: HUMULIN R IV ONE (14:08)
[2024-06-16 14:14] LABS: A-aADO2 21; ABG HEMOGLOBIN 13.2; ABG POTASSIUM 4.2 (3.5-5.1); ARTERIAL BLOOD GAS BASE EXCESS -16.5 (-2.0-2.0); ARTERIAL BLOOD GAS FIO2 21 %; ARTERIAL BLOOD GAS PO2 112 mmHg (75-100); ARTERIAL BLOOD GAS pH 7.32 (7.35-7.45); CARBOXYHEMOGLOBIN 1.8 % THgb (0.0-6.9); HCO3- 6.7 (22-28); HGB O2 SAT 96.1 g/dF (94-100); Methhemoglobin 1.1 % (1.4-1.5); paO2 pAO1 0.84
[2024-06-16 14:15] LABS: ALLEN TEST OK? RB; ARTERIAL BLOOD GAS PCO2 13 mmHg (35-45)
[2024-06-16 14:17] LABS: Appearance Clear (Clear); Bacteria Few /HPF (None Seen); Bilirubin Negative (Negative); Blood Negative (Negative); Epithelial Cells None Seen /HPF (None Seen); Glucose, Urine >=1000 mg/dL (Negative); Hyaline Casts NONE SEEN /LPF (0-2); Ketones >=160 (Negative); Leukocyte Esterase Negative (Negative); Nitrite Negative (Negative); Protein,Urine Dip Negative (Negative); Specific Gravity 1.025 (1.005-1.030); Urobilinogen 0.2 mg/dL (0.2); WBC 0-2 /HPF (0-5)
[2024-06-16 14:24] LABS: ALBUMIN 4.2 g/dL (3.5-5.0); ALKALINE PHOSPHATASE 119 U/L (38-126); BLOOD UREA NITROGEN 29 mg/dL (7-17); CHLORIDE 116 mmol/L (98-107); Calcium 9.4 mg/dL (8.4-10.2); Creatinine 1 1.11 mg/dL (0.52-1.04); EST GLOMERULAR FILTRATION RATE 59.1 ML/MIN; ETHYL ALCOHOL < 10 mg/dL (0-10); Glucose 315 mg/dL (74-106); MAGNESIUM 2.1 mg/dL (1.6-2.3); Potassium 4.1 mmol/L (3.5-5.1); SGOT/AST 29 U/L (14-36); SGPT/ALT 36 U/L (0-35); SODIUM 142 mmol/L (135-145); Total Protein 6.9 g/dL (6.3-8.2)
[2024-06-16 14:46] LABS: Carbon Dioxide < 5 mmol/L (22-30)
[2024-06-16 14:54] LABS: ADD URINE CULTURE? NO (NO)
[2024-06-16 14:56] LABS: Slide Review 1 YES
[2024-06-16 15:42] LABS: A-aADO2 14; ABG HEMOGLOBIN 11.9; ABG POTASSIUM 3.9 (3.5-5.1); ARTERIAL BLD GAS O2 SATURATION 99.9 % (95-100); ARTERIAL BLOOD GAS BASE EXCESS -8.5 (-2.0-2.0); ARTERIAL BLOOD GAS FIO2 21 %; ARTERIAL BLOOD GAS PO2 111 mmHg (75-100); ARTERIAL BLOOD GAS pH 7.44 (7.35-7.45); CARBOXYHEMOGLOBIN 2.5 % THgb (0.0-6.9); HCO3- 13.6 (22-28); HGB O2 SAT 96.4 g/dF (94-100); paO2 pAO1 0.89
[2024-06-16 15:43] LABS: ABG SITE RIGHT BRACHIAL; ARTERIAL BLOOD GAS PCO2 20 mmHg (35-45)
[2024-06-16 15:54] LABS: ALBUMIN 3.5 g/dL (3.5-5.0); ANION GAP 17.2 MEQ/L (5-15); BILIRUBIN,TOTAL 2.9 mg/dL (0.2-1.3); Calcium 9.1 mg/dL (8.4-10.2); Creatinine 1 0.94 mg/dL (0.52-1.04); EST GLOMERULAR FILTRATION RATE 72.1 ML/MIN; Potassium 3.8 mmol/L (3.5-5.1)
[2024-06-16] MEDS ORDERED: Zofran 4 MG/2 ML VIAL IV PRN (16:50)
--- NOTE | 2024-06-16 17:26 | PCM.HP ---
<YULIYA CARDOZA - Last Filed: 06/16/24 17:21> History of Present Illness - Chief Complaint Chief Complaint: dka Date: 06/16/24 History of Present Illness: Ms. Beach is a 53 year old female with a pmhx of HLD, HTN, type 1 diabetes, hypothyroidism, anxiety, and panic disorder who presented to ED 06/16/24 via EMS with AMS and hyperglycemia. Patient generally manages diabetes with an insulin pump but inadvertently left her biological chemist back in [place] where she resides. The blister pack operator is sending her a biological chemist which will be arriving any time now. Patient was seen in ED 06/15/24 after her glucometer was reading high. Patient's daughter stated that the patient was discharged to home on 06/15/2024 at approximately 9 PM from our emergency department. The clinical impression was hyperglycemia dyspnea nausea. Lab findings were consistent with DKA. Patient was discharged home. Today patient had several episodes of vomiting and became altered. Despite receiving 30 units of insulin at home, blood glucose levels were still greater than 400- thus prompting return to ED. Upon arrival vitals with noted tachycardia, otherwise stable. CXR with no acute findings. CT head with no acute findings. Lab findings consistent with DKA. Patient received a total of 3L of IVF and 6 units of Humalin R in ED. Labs and mentation are improved. Patient A&O x 3 during interview. Plan for admission for DKA. Will initiate DKA protocol. - Review of Systems Constitutional: Fatigue, Weakness Eyes: No Symptoms Ears, Nose, & Throat: No Symptoms Respiratory: No Symptoms Cardiac: No Symptoms Abdominal/Gastrointestinal: Nausea, Vomiting Genitourinary Symptoms: No Symptoms Musculoskeletal: No Symptoms Skin: No Symptoms Neurological: No Symptoms Psychological: No Symptoms Endocrine: No Symptoms Hematologic/Lymphatic: No Symptoms Immunological/Allergic: No Symptoms Medications & Allergies Home Medications: Home Medication List Hydrocodone/Acetaminophen [Hydrocodone-Acetamin 5-325 mg] 1 tab PO Q6H 11/29/21 [History Confirmed 06/16/24] Insulin Lispro [Humalog] 0 unit SQ UD 11/29/21 [History Confirmed 06/16/24] Levothyroxine Sodium [Euthyrox] 200 mcg PO DAILY 11/29/21 [History Confirmed 06/16/24] Paroxetine HCl 20 mg [Paxil 20 MG] 30 mg PO DAILY 11/29/21 [History Confirmed 06/16/24] Evolocumab [Repatha Syringe] 140 mg SQ UD 06/15/24 [History Confirmed 06/16/24] Ondansetron ODT 4 MG [Zofran Odt 4 mg] 4 mg PO Q6H PRN PRN #10 tablet 06/15/24 [Rx Confirmed 06/16/24] Tirzepatide [Mounjaro] 12.5 mg SQ WEEKLY 06/15/24 [History Confirmed 06/16/24] Aspirin [Ecotrin] 81 mg PO DAILY 06/16/24 [History Confirmed 06/16/24] Cholecalciferol (Vitamin D3) [Vitamin D3] 0 mg PO DAILY 06/16/24 [History Confirmed 06/16/24] Allergies/Adverse Reactions: Allergies Allergy/AdvReac Type Severity Reaction Status Date / Time No Known Drug Allergies Allergy Verified 06/16/24 17:04 - Past Medical History Past Medical History: Yes Neurological History: No Pertinent History ENT History: No Pertinent History Cardiac History: High Cholesterol, Hypertension Respiratory History: Asthma Endocrine Medical History: Diabetes Type I, Hypothyroidism Musculoskelatal History: Arthritis GI Medical History: Gallbladder Disease History: No Pertinent History Pyscho-Social History: Anxiety, Panic Disorder Reproductive Disorders: No Pertinent History Comment: chronic pain - Female History Hx Last Menstrual Period: 10 years ago Are you now?: No - Past Surgical History Past Surgical History: Yes Neuro Surgical History: No Pertinent History Cardiac History: No Pertinent History Respiratory Surgery: No Pertinent History GI Surgical History: Cholecystectomy Genitourinary Surgical Hx: No Pertinent History Musculskeletal Surgical Hx: Orthopedic Surgery Female Surgical History: Section Other Surgical History: arm, ankle - Social History Smoking Status: Never smoker Exposure to second hand smoke: No Alcohol: None Drug Use: none - Social Determinants of Health Will the patient participate in the screening: Yes Do you worry about a steady place to live?: No Do you have any problems with any of the following?: No known problems In the past 12 months,have you had to go without utilities?: No Have you or anyone in your house had to go without enough: No Transportation Issues: No Has anyone in your support network made you feel unsafe?: No - Physical Exam Vital Signs: Vital Signs - 24 hr Temp Pulse Resp BP BP Pulse Ox 06/16/24 16:00 117 H 31 H 104/60 99 06/16/24 15:30 114 H 30 H 104/55 98 06/16/24 15:12 114 H 26 H 107/61 99 06/16/24 15:07 123 H 27 H 69/37 100 06/16/24 15:00 119 H 24 86/46 100 06/16/24 14:30 117 H 23 101/62 100 06/16/24 14:10 114 H 23 100 06/16/24 14:04 119 H 29 H 98 06/16/24 13:22 123 H 15 105/83 100 06/16/24 12:30 119 H 26 H 138/79 100 06/16/24 12:12 100 06/16/24 12:11 100 06/16/24 12:00 107 H 24 119/68 100 06/16/24 11:37 98.3 F 113 H 24 136/69 100 General Appearance: no apparent distress Neurologic Exam: alert, oriented x 3, cooperative Eye Exam: PERRL/EOMI Ears, Nose, Throat Exam: normal ENT inspection Neck Exam: normal inspection Respiratory Exam: normal breath sounds, lungs clear Cardiovascular Exam: tachycardia Gastrointestinal/Abdomen Exam: soft, normal bowel sounds Pelvic Exam: not done Rectal Exam: deferred Back Exam: normal inspection Extremity Exam: normal inspection Skin Exam: normal color Results - Labs Lab/Micro Results: Lab Results-Last 24 Hours 06/16/24 06/16/24 06/16/24 Range/Units 11:43 11:55 11:55 WBC (3.98-10.04) x10^3/uL RBC (3.93-5.22) x10^6/uL Hgb (11.2-15.7) g/dL Hct (34.1-44.9) % MCV (79.4-94.8) fL MCH (25.6-32.2) pg MCHC (32.2-35.5) g/dL RDW (11.7-14.4) % Plt Count (182-369) x10^3/uL MPV (9.4-12.3) fL Gran % (34.0-71.1) % Immature Gran % (Auto) (0.001-0.429) % Nucleat RBC Rel Count (0.00-0.2) % Eos # (Auto) (0.04-0.36) x10^3/uL Immature Gran # (Auto) (0.001-0.031) x10^3u/L Absolute Lymphs (auto) (1.18-3.74) x10^3/uL Absolute Monos (auto) (0.24-0.86) x10^3/uL Absolute Nucleated RBC (0.00-0.012) x10^3u/L Lymphocytes % (19.3-51.7) % Monocytes % (4.7-12.5) % Eosinophils % (0.7-5.8) % Basophils % (0.1-1.2) % Absolute Granulocytes (1.56-6.13) x10^3/uL Basophils # (0.01-0.08) x10^3/uL Puncture Site pCO2 (35-45) mmHg pO2 (75-100) mmHg pO2/FiO2 Ratio 21.0 % Base Excess (-2.0-2.0) O2 Saturation (94-100) g/dF ABG pH (7.35-7.45) ABG HCO3 (22-28) ABG O2 Sat (Measured) (95-100) % Bobby Test VBG pH 7.16 L* (7.32-7.42) VBG pCO2 at Pat Temp 27 L (42-55) mm/Hg VBG pO2 at Pat Temp 45 H (25-40) mm/Hg VBG HCO3 9.6 L* (22-28) meq/L VBG O2 Sat (Nain) 75.9 L (95-100) VBG Base Excess -17.6 L (-2.0-2.0) VBG Hemoglobin 13.6 VBG Carboxyhemoglobin 3.7 (0.0-6.9) % T HGB A-a Gradient a/A Ratio Hemoglobin Carboxyhemoglobin (0.0-6.9) % THgb Methemoglobin (1.4-1.5) % POC Potassium 5.0 (3.5-5.1) Temperature C POC O2 Flow Rate % Sodium (135-145) mmol/L Potassium (3.5-5.1) mmol/L Chloride (98-107) mmol/L Carbon Dioxide (22-30) mmol/L Anion Gap (5-15) MEQ/L BUN (7-17) mg/dL Creatinine (0.52-1.04) mg/dL Estimated GFR ML/MIN Glucose (74-106) mg/dL POC Glucometer 473 H (74 to 106) mg/dL Lactic Acid 5.3 H (0.4-2.0) Calcium (8.4-10.2) mg/dL Magnesium (1.6-2.3) mg/dL Total Bilirubin (0.2-1.3) mg/dL AST (14-36) U/L ALT (0-35) U/L Alkaline Phosphatase (38-126) U/L Serum Total Protein (6.3-8.2) g/dL Albumin (3.5-5.0) g/dL Urine Color (Yellow) Urine Appearance (Clear) Urine pH (4.6-8.0) Ur Specific [place] (1.005-1.030) Urine Protein (Negative) Urine Glucose (UA) (Negative) mg/dL Urine Ketones (Negative) Urine Blood (Negative) Urine Nitrite (Negative) Urine Bilirubin (Negative) Urine Urobilinogen (0.2) mg/dL Ur Leukocyte Esterase (Negative) U Hyaline Cast (Auto) (0-2) /LPF Urine Microscopic RBC (0-5) /HPF Urine Microscopic WBC (0-5) /HPF Ur Epithelial Cells (None Seen) /HPF Urine Bacteria (None Seen) /HPF Urine Culture Reflexed (NO) Ethyl Alcohol (0-10) mg/dL Slides for Path Review 06/16/24 06/16/24 06/16/24 Range/Units 13:21 13:25 13:25 WBC 23.9 H (3.98-10.04) x10^3/uL RBC 4.34 (3.93-5.22) x10^6/uL Hgb 12.9 (11.2-15.7) g/dL Hct 40.9 (34.1-44.9) % MCV 94.2 (79.4-94.8) fL MCH 29.7 (25.6-32.2) pg MCHC 31.5 L (32.2-35.5) g/dL RDW 12.4 (11.7-14.4) % Plt Count 385 H (182-369) x10^3/uL MPV 9.9 (9.4-12.3) fL Gran % 89.9 H (34.0-71.1) % Immature Gran % (Auto) 0.8 H (0.001-0.429) % Nucleat RBC Rel Count 0.0 (0.00-0.2) % Eos # (Auto) 0.01 L (0.04-0.36) x10^3/uL Immature Gran # (Auto) 0.19 H (0.001-0.031) x10^3u/L Absolute Lymphs (auto) 1.07 L (1.18-3.74) x10^3/uL Absolute Monos (auto) 1.09 H (0.24-0.86) x10^3/uL Absolute Nucleated RBC 0.00 (0.00-0.012) x10^3u/L Lymphocytes % 4.5 L (19.3-51.7) % Monocytes % 4.6 L (4.7-12.5) % Eosinophils % 0.0 L (0.7-5.8) % Basophils % 0.2 (0.1-1.2) % Absolute Granulocytes 21.47 H (1.56-6.13) x10^3/uL Basophils # 0.04 (0.01-0.08) x10^3/uL Puncture Site pCO2 (35-45) mmHg pO2 (75-100) mmHg pO2/FiO2 Ratio % Base Excess (-2.0-2.0) O2 Saturation (94-100) g/dF ABG pH (7.35-7.45) ABG HCO3 (22-28) ABG O2 Sat (Measured) (95-100) % Bobby Test VBG pH (7.32-7.42) VBG pCO2 at Pat Temp (42-55) mm/Hg VBG pO2 at Pat Temp (25-40) mm/Hg VBG HCO3 (22-28) meq/L VBG O2 Sat (Nain) (95-100) VBG Base Excess (-2.0-2.0) VBG Hemoglobin VBG Carboxyhemoglobin (0.0-6.9) % T HGB A-a Gradient a/A Ratio Hemoglobin Carboxyhemoglobin (0.0-6.9) % THgb Methemoglobin (1.4-1.5) % POC Potassium (3.5-5.1) Temperature C POC O2 Flow Rate % Sodium 142 (135-145) mmol/L Potassium 4.1 (3.5-5.1) mmol/L Chloride 116 H D (98-107) mmol/L Carbon Dioxide < 5 L* (22-30) mmol/L Anion Gap (5-15) MEQ/L BUN 29 H (7-17) mg/dL Creatinine 1.11 H (0.52-1.04) mg/dL Estimated GFR 59.1 ML/MIN Glucose 315 H (74-106) mg/dL POC Glucometer 360 H (74 to 106) mg/dL Lactic Acid (0.4-2.0) Calcium 9.4 (8.4-10.2) mg/dL Magnesium 2.1 (1.6-2.3) mg/dL Total Bilirubin 3.40 H (0.2-1.3) mg/dL AST 29 (14-36) U/L ALT 36 H (0-35) U/L Alkaline Phosphatase 119 (38-126) U/L Serum Total Protein 6.9 (6.3-8.2) g/dL Albumin 4.2 (3.5-5.0) g/dL Urine Color (Yellow) Urine Appearance (Clear) Urine pH (4.6-8.0) Ur Specific [place] (1.005-1.030) Urine Protein (Negative) Urine Glucose (UA) (Negative) mg/dL Urine Ketones (Negative) Urine Blood (Negative) Urine Nitrite (Negative) Urine Bilirubin (Negative) Urine Urobilinogen (0.2) mg/dL Ur Leukocyte Esterase (Negative) U Hyaline Cast (Auto) (0-2) /LPF Urine Microscopic RBC (0-5) /HPF Urine Microscopic WBC (0-5) /HPF Ur Epithelial Cells (None Seen) /HPF Urine Bacteria (None Seen) /HPF Urine Culture Reflexed (NO) Ethyl Alcohol < 10 (0-10) mg/dL Slides for Path Review YES 06/16/24 06/16/24 06/16/24 Range/Units 14:10 14:12 15:00 WBC (3.98-10.04) x10^3/uL RBC (3.93-5.22) x10^6/uL Hgb (11.2-15.7) g/dL Hct (34.1-44.9) % MCV (79.4-94.8) fL MCH (25.6-32.2) pg MCHC (32.2-35.5) g/dL RDW (11.7-14.4) % Plt Count (182-369) x10^3/uL MPV (9.4-12.3) fL Gran % (34.0-71.1) % Immature Gran % (Auto) (0.001-0.429) % Nucleat RBC Rel Count (0.00-0.2) % Eos # (Auto) (0.04-0.36) x10^3/uL Immature Gran # (Auto) (0.001-0.031) x10^3u/L Absolute Lymphs (auto) (1.18-3.74) x10^3/uL Absolute Monos (auto) (0.24-0.86) x10^3/uL Absolute Nucleated RBC (0.00-0.012) x10^3u/L Lymphocytes % (19.3-51.7) % Monocytes % (4.7-12.5) % Eosinophils % (0.7-5.8) % Basophils % (0.1-1.2) % Absolute Granulocytes (1.56-6.13) x10^3/uL Basophils # (0.01-0.08) x10^3/uL Puncture Site NA pCO2 13 L* (35-45) mmHg pO2 112 H (75-100) mmHg pO2/FiO2 Ratio % Base Excess -16.5 L (-2.0-2.0) O2 Saturation 96.1 (94-100) g/dF ABG pH 7.32 L (7.35-7.45) ABG HCO3 6.7 L* (22-28) ABG O2 Sat (Measured) 99.0 (95-100) % Bobby Test RB VBG pH (7.32-7.42) VBG pCO2 at Pat Temp (42-55) mm/Hg VBG pO2 at Pat Temp (25-40) mm/Hg VBG HCO3 (22-28) meq/L VBG O2 Sat (Nain) (95-100) VBG Base Excess (-2.0-2.0) VBG Hemoglobin VBG Carboxyhemoglobin (0.0-6.9) % T HGB A-a Gradient 21 a/A Ratio 0.84 Hemoglobin 13.2 Carboxyhemoglobin 1.8 (0.0-6.9) % THgb Methemoglobin 1.1 L (1.4-1.5) % POC Potassium (3.5-5.1) Temperature 37.0 C POC O2 Flow Rate 21 % Sodium (135-145) mmol/L Potassium 4.2 (3.5-5.1) mmol/L Chloride (98-107) mmol/L Carbon Dioxide (22-30) mmol/L Anion Gap (5-15) MEQ/L BUN (7-17) mg/dL Creatinine (0.52-1.04) mg/dL Estimated GFR ML/MIN Glucose (74-106) mg/dL POC Glucometer 221 H (74 to 106) mg/dL Lactic Acid (0.4-2.0) Calcium (8.4-10.2) mg/dL Magnesium (1.6-2.3) mg/dL Total Bilirubin (0.2-1.3) mg/dL AST (14-36) U/L ALT (0-35) U/L Alkaline Phosphatase (38-126) U/L Serum Total Protein (6.3-8.2) g/dL Albumin (3.5-5.0) g/dL Urine Color Yellow (Yellow) Urine Appearance Clear (Clear) Urine pH 5.0 (4.6-8.0) Ur Specific [place] 1.025 (1.005-1.030) Urine Protein Negative (Negative) Urine Glucose (UA) >=1000 A (Negative) mg/dL Urine Ketones >=160 A (Negative) Urine Blood Negative (Negative) Urine Nitrite Negative (Negative) Urine Bilirubin Negative (Negative) Urine Urobilinogen 0.2 (0.2) mg/dL Ur Leukocyte Esterase Negative (Negative) U Hyaline Cast (Auto) NONE SEEN (0-2) /LPF Urine Microscopic RBC 3-5 (0-5) /HPF Urine Microscopic WBC 0-2 (0-5) /HPF Ur Epithelial Cells None Seen (None Seen) /HPF Urine Bacteria Few A (None Seen) /HPF Urine Culture Reflexed NO (NO) Ethyl Alcohol (0-10) mg/dL Slides for Path Review 06/16/24 06/16/24 06/16/24 Range/Units 15:13 15:13 16:00 WBC (3.98-10.04) x10^3/uL RBC (3.93-5.22) x10^6/uL Hgb (11.2-15.7) g/dL Hct (34.1-44.9) % MCV (79.4-94.8) fL MCH (25.6-32.2) pg MCHC (32.2-35.5) g/dL RDW (11.7-14.4) % Plt Count (182-369) x10^3/uL MPV (9.4-12.3) fL Gran % (34.0-71.1) % Immature Gran % (Auto) (0.001-0.429) % Nucleat RBC Rel Count (0.00-0.2) % Eos # (Auto) (0.04-0.36) x10^3/uL Immature Gran # (Auto) (0.001-0.031) x10^3u/L Absolute Lymphs (auto) (1.18-3.74) x10^3/uL Absolute Monos (auto) (0.24-0.86) x10^3/uL Absolute Nucleated RBC (0.00-0.012) x10^3u/L Lymphocytes % (19.3-51.7) % Monocytes % (4.7-12.5) % Eosinophils % (0.7-5.8) % Basophils % (0.1-1.2) % Absolute Granulocytes (1.56-6.13) x10^3/uL Basophils # (0.01-0.08) x10^3/uL Puncture Site RIGHT BRACHIAL pCO2 20 L* (35-45) mmHg pO2 111 H (75-100) mmHg pO2/FiO2 Ratio % Base Excess -8.5 L (-2.0-2.0) O2 Saturation 96.4 (94-100) g/dF ABG pH 7.44 (7.35-7.45) ABG HCO3 13.6 L* (22-28) ABG O2 Sat (Measured) 99.9 (95-100) % Bobby Test NOT APPLICABLE VBG pH (7.32-7.42) VBG pCO2 at Pat Temp (42-55) mm/Hg VBG pO2 at Pat Temp (25-40) mm/Hg VBG HCO3 (22-28) meq/L VBG O2 Sat (Nain) (95-100) VBG Base Excess (-2.0-2.0) VBG Hemoglobin VBG Carboxyhemoglobin (0.0-6.9) % T HGB A-a Gradient 14 a/A Ratio 0.89 Hemoglobin 11.9 Carboxyhemoglobin 2.5 (0.0-6.9) % THgb Methemoglobin 1.0 L (1.4-1.5) % POC Potassium (3.5-5.1) Temperature 37.0 C POC O2 Flow Rate 21 % Sodium 141 (135-145) mmol/L Potassium 3.9 3.8 (3.5-5.1) mmol/L Chloride 115 H (98-107) mmol/L Carbon Dioxide 13 L* (22-30) mmol/L Anion Gap 17.2 H (5-15) MEQ/L BUN 28 H (7-17) mg/dL Creatinine 0.94 (0.52-1.04) mg/dL Estimated GFR 72.1 ML/MIN Glucose 217 H (74-106) mg/dL POC Glucometer (74 to 106) mg/dL Lactic Acid 3.0 H (0.4-2.0) Calcium 9.1 (8.4-10.2) mg/dL Magnesium (1.6-2.3) mg/dL Total Bilirubin 2.90 H (0.2-1.3) mg/dL AST 25 (14-36) U/L ALT 27 (0-35) U/L Alkaline Phosphatase 101 (38-126) U/L Serum Total Protein 6.0 L (6.3-8.2) g/dL Albumin 3.5 (3.5-5.0) g/dL Urine Color (Yellow) Urine Appearance (Clear) Urine pH (4.6-8.0) Ur Specific [place] (1.005-1.030) Urine Protein (Negative) Urine Glucose (UA) (Negative) mg/dL Urine Ketones (Negative) Urine Blood (Negative) Urine Nitrite (Negative) Urine Bilirubin (Negative) Urine Urobilinogen (0.2) mg/dL Ur Leukocyte Esterase (Negative) U Hyaline Cast (Auto) (0-2) /LPF Urine Microscopic RBC (0-5) /HPF Urine Microscopic WBC (0-5) /HPF Ur Epithelial Cells (None Seen) /HPF Urine Bacteria (None Seen) /HPF Urine Culture Reflexed (NO) Ethyl Alcohol (0-10) mg/dL Slides for Path Review 06/16/24 Range/Units 17:10 WBC (3.98-10.04) x10^3/uL RBC (3.93-5.22) x10^6/uL Hgb (11.2-15.7) g/dL Hct (34.1-44.9) % MCV (79.4-94.8) fL MCH (25.6-32.2) pg MCHC (32.2-35.5) g/dL RDW (11.7-14.4) % Plt Count (182-369) x10^3/uL MPV (9.4-12.3) fL Gran % (34.0-71.1) % Immature Gran % (Auto) (0.001-0.429) % Nucleat RBC Rel Count (0.00-0.2) % Eos # (Auto) (0.04-0.36) x10^3/uL Immature Gran # (Auto) (0.001-0.031) x10^3u/L Absolute Lymphs (auto) (1.18-3.74) x10^3/uL Absolute Monos (auto) (0.24-0.86) x10^3/uL Absolute Nucleated RBC (0.00-0.012) x10^3u/L Lymphocytes % (19.3-51.7) % Monocytes % (4.7-12.5) % Eosinophils % (0.7-5.8) % Basophils % (0.1-1.2) % Absolute Granulocytes (1.56-6.13) x10^3/uL Basophils # (0.01-0.08) x10^3/uL Puncture Site pCO2 (35-45) mmHg pO2 (75-100) mmHg pO2/FiO2 Ratio % Base Excess (-2.0-2.0) O2 Saturation (94-100) g/dF ABG pH (7.35-7.45) ABG HCO3 (22-28) ABG O2 Sat (Measured) (95-100) % Bobby Test VBG pH (7.32-7.42) VBG pCO2 at Pat Temp (42-55) mm/Hg VBG pO2 at Pat Temp (25-40) mm/Hg VBG HCO3 (22-28) meq/L VBG O2 Sat (Nain) (95-100) VBG Base Excess (-2.0-2.0) VBG Hemoglobin VBG Carboxyhemoglobin (0.0-6.9) % T HGB A-a Gradient a/A Ratio Hemoglobin Carboxyhemoglobin (0.0-6.9) % THgb Methemoglobin (1.4-1.5) % POC Potassium (3.5-5.1) Temperature C POC O2 Flow Rate % Sodium (135-145) mmol/L Potassium (3.5-5.1) mmol/L Chloride (98-107) mmol/L Carbon Dioxide (22-30) mmol/L Anion Gap (5-15) MEQ/L BUN (7-17) mg/dL Creatinine (0.52-1.04) mg/dL Estimated GFR ML/MIN Glucose (74-106) mg/dL POC Glucometer 179 H (74 to 106) mg/dL Lactic Acid (0.4-2.0) Calcium (8.4-10.2) mg/dL Magnesium (1.6-2.3) mg/dL Total Bilirubin (0.2-1.3) mg/dL AST (14-36) U/L ALT (0-35) U/L Alkaline Phosphatase (38-126) U/L Serum Total Protein (6.3-8.2) g/dL Albumin (3.5-5.0) g/dL Urine Color (Yellow) Urine Appearance (Clear) Urine pH (4.6-8.0) Ur Specific [place] (1.005-1.030) Urine Protein (Negative) Urine Glucose (UA) (Negative) mg/dL Urine Ketones (Negative) Urine Blood (Negative) Urine Nitrite (Negative) Urine Bilirubin (Negative) Urine Urobilinogen (0.2) mg/dL Ur Leukocyte Esterase (Negative) U Hyaline Cast (Auto) (0-2) /LPF Urine Microscopic RBC (0-5) /HPF Urine Microscopic WBC (0-5) /HPF Ur Epithelial Cells (None Seen) /HPF Urine Bacteria (None Seen) /HPF Urine Culture Reflexed (NO) Ethyl Alcohol (0-10) mg/dL Slides for Path Review Accuchecks Date 06/16/24 Date 06/16/24 Date 06/16/24 Time 15:00 Time 13:21 Time 11:42 - Radiology Impressions Radiology Exams & Impressions: Radiology Procedures Category Date Time Status HEAD WITHOUT CONTRAST [CT] Stat Exams 06/16/24 12:26 Completed Assessment/Plan (1) Diabetic ketoacidosis Current Visit: Yes Status: Acute Assessment & Plan: -Normally manages diabetes with insulin pump at home - biological chemist left in [place] where she resides, replacement being sent- should arrive today -3L fluid received in ED -Insulin drip per DKA protocol -BMP Q4H -Potassium replacement per protocol -Bicarb replacement only if pH is <6.9 -CBG check Q1H -Once controlled, patient to bring in insulin pump and restart -NPO Code(s): E11.10 - TYPE 2 DIABETES MELLITUS WITH KETOACIDOSIS WITHOUT COMA (2) Type 1 diabetes Current Visit: Yes Status: Acute Assessment & Plan: -DKA on arrival, see plan -diagnosed 5 years ago - on insulin pump (3) HTN (hypertension) Current Visit: Yes Status: Acute Assessment & Plan: -stable- Code(s): I10 - ESSENTIAL (PRIMARY) HYPERTENSION (4) Hypothyroid Current Visit: Yes Status: Acute Assessment & Plan: -continue levothyroxine Code(s): E03.9 - HYPOTHYROIDISM, UNSPECIFIED (5) Anxiety Current Visit: Yes Status: Acute Assessment & Plan: -continue paxil Code(s): F41.9 - ANXIETY DISORDER, UNSPECIFIED (6) Panic disorder Current Visit: Yes Status: Acute Assessment & Plan: -continue home paxil Code(s): F41.0 - PANIC DISORDER [EPISODIC PAROXYSMAL ANXIETY] (7) Congenital heart defect Current Visit: Yes Status: Acute Assessment & Plan: -noted, per pt report - unable to elaborate any further details (8) Asthma Current Visit: Yes Status: Acute Assessment & Plan: -RT eval -Nebs/inh prn VTE: lovenox PPI: protonix Dispo 1-2 days Code(s): J45.909 - UNSPECIFIED ASTHMA, UNCOMPLICATED Telemedicine Encounter - Telemedicine Encounter Telemedicine Encounter: "The entirety of this encounter was performed via Telemedicine" This visit was performed using real-time audio and video connection between my location and thepatients locationwith the assistance of a surrogateat the patients location. Written or verbal consent was obtained from the patient/nunu dashdian to perform this visit [facility] technology. Any patient questions regarding the telemedicine interaction were answered. <WINSOME CALLAHAN - Last Filed: 06/16/24 21:38> History of Present Illness - Chief Complaint History of Present Illness: is a 53 year old female. - Physical Exam Vital Signs: Vital Signs - 24 hr Temp Pulse Resp BP BP Pulse Ox 06/16/24 21:17 104/58 06/16/24 21:00 114 H 14 80/48 100 06/16/24 20:00 98 F 112 H 24 118/63 99 06/16/24 19:42 108 H 06/16/24 19:00 107 H 26 H 108/57 99 06/16/24 18:00 113 H 37 H 93/42 100 06/16/24 17:35 112 H 26 H 94/48 100 06/16/24 17:12 98.2 F 111 H 16 121/61 100 06/16/24 16:51 110 H 17 121/61 82 L 06/16/24 16:00 117 H 31 H 104/60 99 06/16/24 15:30 114 H 30 H 104/55 98 06/16/24 15:12 114 H 26 H 107/61 99 06/16/24 15:07 123 H 27 H 69/37 100 06/16/24 15:00 119 H 24 86/46 100 06/16/24 14:30 117 H 23 101/62 100 06/16/24 14:10 114 H 23 100 06/16/24 14:04 119 H 29 H 98 06/16/24 13:22 123 H 15 105/83 100 06/16/24 12:30 119 H 26 H 138/79 100 06/16/24 12:12 100 06/16/24 12:11 100 06/16/24 12:00 107 H 24 119/68 100 06/16/24 11:37 98.3 F 113 H 24 136/69 100 Results - Labs Lab/Micro Results: Lab Results-Last 24 Hours 06/16/24 06/16/24 06/16/24 Range/Units 11:43 11:55 11:55 WBC (3.98-10.04) x10^3/uL RBC (3.93-5.22) x10^6/uL Hgb (11.2-15.7) g/dL Hct (34.1-44.9) % MCV (79.4-94.8) fL MCH (25.6-32.2) pg MCHC (32.2-35.5) g/dL RDW (11.7-14.4) % Plt Count (182-369) x10^3/uL MPV (9.4-12.3) fL Gran % (34.0-71.1) % Immature Gran % (Auto) (0.001-0.429) % Nucleat RBC Rel Count (0.00-0.2) % Eos # (Auto) (0.04-0.36) x10^3/uL Immature Gran # (Auto) (0.001-0.031) x10^3u/L Absolute Lymphs (auto) (1.18-3.74) x10^3/uL Absolute Monos (auto) (0.24-0.86) x10^3/uL Absolute Nucleated RBC (0.00-0.012) x10^3u/L Lymphocytes % (19.3-51.7) % Monocytes % (4.7-12.5) % Eosinophils % (0.7-5.8) % Basophils % (0.1-1.2) % Absolute Granulocytes (1.56-6.13) x10^3/uL Basophils # (0.01-0.08) x10^3/uL Puncture Site pCO2 (35-45) mmHg pO2 (75-100) mmHg pO2/FiO2 Ratio 21.0 % Base Excess (-2.0-2.0) O2 Saturation (94-100) g/dF ABG pH (7.35-7.45) ABG HCO3 (22-28) ABG O2 Sat (Measured) (95-100) % Bobby Test VBG pH 7.16 L* (7.32-7.42) VBG pCO2 at Pat Temp 27 L (42-55) mm/Hg VBG pO2 at Pat Temp 45 H (25-40) mm/Hg VBG HCO3 9.6 L* (22-28) meq/L VBG O2 Sat (Nain) 75.9 L (95-100) VBG Base Excess -17.6 L (-2.0-2.0) VBG Hemoglobin 13.6 VBG Carboxyhemoglobin 3.7 (0.0-6.9) % T HGB A-a Gradient a/A Ratio Hemoglobin Carboxyhemoglobin (0.0-6.9) % THgb Methemoglobin (1.4-1.5) % POC Potassium 5.0 (3.5-5.1) Temperature C POC O2 Flow Rate % Sodium (135-145) mmol/L Potassium (3.5-5.1) mmol/L Chloride (98-107) mmol/L Carbon Dioxide (22-30) mmol/L Anion Gap (5-15) MEQ/L BUN (7-17) mg/dL Creatinine (0.52-1.04) mg/dL Estimated GFR ML/MIN Glucose (74-106) mg/dL POC Glucometer 473 H (74 to 106) mg/dL Lactic Acid 5.3 H (0.4-2.0) Calcium (8.4-10.2) mg/dL Phosphorus (2.5-4.5) mg/dL Magnesium (1.6-2.3) mg/dL Total Bilirubin (0.2-1.3) mg/dL AST (14-36) U/L ALT (0-35) U/L Alkaline Phosphatase (38-126) U/L Serum Total Protein (6.3-8.2) g/dL Albumin (3.5-5.0) g/dL Urine Color (Yellow) Urine Appearance (Clear) Urine pH (4.6-8.0) Ur Specific [place] (1.005-1.030) Urine Protein (Negative) Urine Glucose (UA) (Negative) mg/dL Urine Ketones (Negative) Urine Blood (Negative) Urine Nitrite (Negative) Urine Bilirubin (Negative) Urine Urobilinogen (0.2) mg/dL Ur Leukocyte Esterase (Negative) U Hyaline Cast (Auto) (0-2) /LPF Urine Microscopic RBC (0-5) /HPF Urine Microscopic WBC (0-5) /HPF Ur Epithelial Cells (None Seen) /HPF Urine Bacteria (None Seen) /HPF Urine Culture Reflexed (NO) Ethyl Alcohol (0-10) mg/dL Slides for Path Review 06/16/24 06/16/24 06/16/24 Range/Units 13:21 13:25 13:25 WBC 23.9 H (3.98-10.04) x10^3/uL RBC 4.34 (3.93-5.22) x10^6/uL Hgb 12.9 (11.2-15.7) g/dL Hct 40.9 (34.1-44.9) % MCV 94.2 (79.4-94.8) fL MCH 29.7 (25.6-32.2) pg MCHC 31.5 L (32.2-35.5) g/dL RDW 12.4 (11.7-14.4) % Plt Count 385 H (182-369) x10^3/uL MPV 9.9 (9.4-12.3) fL Gran % 89.9 H (34.0-71.1) % Immature Gran % (Auto) 0.8 H (0.001-0.429) % Nucleat RBC Rel Count 0.0 (0.00-0.2) % Eos # (Auto) 0.01 L (0.04-0.36) x10^3/uL Immature Gran # (Auto) 0.19 H (0.001-0.031) x10^3u/L Absolute Lymphs (auto) 1.07 L (1.18-3.74) x10^3/uL Absolute Monos (auto) 1.09 H (0.24-0.86) x10^3/uL Absolute Nucleated RBC 0.00 (0.00-0.012) x10^3u/L Lymphocytes % 4.5 L (19.3-51.7) % Monocytes % 4.6 L (4.7-12.5) % Eosinophils % 0.0 L (0.7-5.8) % Basophils % 0.2 (0.1-1.2) % Absolute Granulocytes 21.47 H (1.56-6.13) x10^3/uL Basophils # 0.04 (0.01-0.08) x10^3/uL Puncture Site pCO2 (35-45) mmHg pO2 (75-100) mmHg pO2/FiO2 Ratio % Base Excess (-2.0-2.0) O2 Saturation (94-100) g/dF ABG pH (7.35-7.45) ABG HCO3 (22-28) ABG O2 Sat (Measured) (95-100) % Bobby Test VBG pH (7.32-7.42) VBG pCO2 at Pat Temp (42-55) mm/Hg VBG pO2 at Pat Temp (25-40) mm/Hg VBG HCO3 (22-28) meq/L VBG O2 Sat (Nain) (95-100) VBG Base Excess (-2.0-2.0) VBG Hemoglobin VBG Carboxyhemoglobin (0.0-6.9) % T HGB A-a Gradient a/A Ratio Hemoglobin Carboxyhemoglobin (0.0-6.9) % THgb Methemoglobin (1.4-1.5) % POC Potassium (3.5-5.1) Temperature C POC O2 Flow Rate % Sodium 142 (135-145) mmol/L Potassium 4.1 (3.5-5.1) mmol/L Chloride 116 H D (98-107) mmol/L Carbon Dioxide < 5 L* (22-30) mmol/L Anion Gap (5-15) MEQ/L BUN 29 H (7-17) mg/dL Creatinine 1.11 H (0.52-1.04) mg/dL Estimated GFR 59.1 ML/MIN Glucose 315 H (74-106) mg/dL POC Glucometer 360 H (74 to 106) mg/dL Lactic Acid (0.4-2.0) Calcium 9.4 (8.4-10.2) mg/dL Phosphorus (2.5-4.5) mg/dL Magnesium 2.1 (1.6-2.3) mg/dL Total Bilirubin 3.40 H (0.2-1.3) mg/dL AST 29 (14-36) U/L ALT 36 H (0-35) U/L Alkaline Phosphatase 119 (38-126) U/L Serum Total Protein 6.9 (6.3-8.2) g/dL Albumin 4.2 (3.5-5.0) g/dL Urine Color (Yellow) Urine Appearance (Clear) Urine pH (4.6-8.0) Ur Specific [place] (1.005-1.030) Urine Protein (Negative) Urine Glucose (UA) (Negative) mg/dL Urine Ketones (Negative) Urine Blood (Negative) Urine Nitrite (Negative) Urine Bilirubin (Negative) Urine Urobilinogen (0.2) mg/dL Ur Leukocyte Esterase (Negative) U Hyaline Cast (Auto) (0-2) /LPF Urine Microscopic RBC (0-5) /HPF Urine Microscopic WBC (0-5) /HPF Ur Epithelial Cells (None Seen) /HPF Urine Bacteria (None Seen) /HPF Urine Culture Reflexed (NO) Ethyl Alcohol < 10 (0-10) mg/dL Slides for Path Review YES 06/16/24 06/16/24 06/16/24 Range/Units 14:10 14:12 15:00 WBC (3.98-10.04) x10^3/uL RBC (3.93-5.22) x10^6/uL Hgb (11.2-15.7) g/dL Hct (34.1-44.9) % MCV (79.4-94.8) fL MCH (25.6-32.2) pg MCHC (32.2-35.5) g/dL RDW (11.7-14.4) % Plt Count (182-369) x10^3/uL MPV (9.4-12.3) fL Gran % (34.0-71.1) % Immature Gran % (Auto) (0.001-0.429) % Nucleat RBC Rel Count (0.00-0.2) % Eos # (Auto) (0.04-0.36) x10^3/uL Immature Gran # (Auto) (0.001-0.031) x10^3u/L Absolute Lymphs (auto) (1.18-3.74) x10^3/uL Absolute Monos (auto) (0.24-0.86) x10^3/uL Absolute Nucleated RBC (0.00-0.012) x10^3u/L Lymphocytes % (19.3-51.7) % Monocytes % (4.7-12.5) % Eosinophils % (0.7-5.8) % Basophils % (0.1-1.2) % Absolute Granulocytes (1.56-6.13) x10^3/uL Basophils # (0.01-0.08) x10^3/uL Puncture Site NA pCO2 13 L* (35-45) mmHg pO2 112 H (75-100) mmHg pO2/FiO2 Ratio % Base Excess -16.5 L (-2.0-2.0) O2 Saturation 96.1 (94-100) g/dF ABG pH 7.32 L (7.35-7.45) ABG HCO3 6.7 L* (22-28) ABG O2 Sat (Measured) 99.0 (95-100) % Bobby Test RB VBG pH (7.32-7.42) VBG pCO2 at Pat Temp (42-55) mm/Hg VBG pO2 at Pat Temp (25-40) mm/Hg VBG HCO3 (22-28) meq/L VBG O2 Sat (Nain) (95-100) VBG Base Excess (-2.0-2.0) VBG Hemoglobin VBG Carboxyhemoglobin (0.0-6.9) % T HGB A-a Gradient 21 a/A Ratio 0.84 Hemoglobin 13.2 Carboxyhemoglobin 1.8 (0.0-6.9) % THgb Methemoglobin 1.1 L (1.4-1.5) % POC Potassium (3.5-5.1) Temperature 37.0 C POC O2 Flow Rate 21 % Sodium (135-145) mmol/L Potassium 4.2 (3.5-5.1) mmol/L Chloride (98-107) mmol/L Carbon Dioxide (22-30) mmol/L Anion Gap (5-15) MEQ/L BUN (7-17) mg/dL Creatinine (0.52-1.04) mg/dL Estimated GFR ML/MIN Glucose (74-106) mg/dL POC Glucometer 221 H (74 to 106) mg/dL Lactic Acid (0.4-2.0) Calcium (8.4-10.2) mg/dL Phosphorus (2.5-4.5) mg/dL Magnesium (1.6-2.3) mg/dL Total Bilirubin (0.2-1.3) mg/dL AST (14-36) U/L ALT (0-35) U/L Alkaline Phosphatase (38-126) U/L Serum Total Protein (6.3-8.2) g/dL Albumin (3.5-5.0) g/dL Urine Color Yellow (Yellow) Urine Appearance Clear (Clear) Urine pH 5.0 (4.6-8.0) Ur Specific [place] 1.025 (1.005-1.030) Urine Protein Negative (Negative) Urine Glucose (UA) >=1000 A (Negative) mg/dL Urine Ketones >=160 A (Negative) Urine Blood Negative (Negative) Urine Nitrite Negative (Negative) Urine Bilirubin Negative (Negative) Urine Urobilinogen 0.2 (0.2) mg/dL Ur Leukocyte Esterase Negative (Negative) U Hyaline Cast (Auto) NONE SEEN (0-2) /LPF Urine Microscopic RBC 3-5 (0-5) /HPF Urine Microscopic WBC 0-2 (0-5) /HPF Ur Epithelial Cells None Seen (None Seen) /HPF Urine Bacteria Few A (None Seen) /HPF Urine Culture Reflexed NO (NO) Ethyl Alcohol (0-10) mg/dL Slides for Path Review 06/16/24 06/16/24 06/16/24 Range/Units 15:13 15:13 16:00 WBC (3.98-10.04) x10^3/uL RBC (3.93-5.22) x10^6/uL Hgb (11.2-15.7) g/dL Hct (34.1-44.9) % MCV (79.4-94.8) fL MCH (25.6-32.2) pg MCHC (32.2-35.5) g/dL RDW (11.7-14.4) % Plt Count (182-369) x10^3/uL MPV (9.4-12.3) fL Gran % (34.0-71.1) % Immature Gran % (Auto) (0.001-0.429) % Nucleat RBC Rel Count (0.00-0.2) % Eos # (Auto) (0.04-0.36) x10^3/uL Immature Gran # (Auto) (0.001-0.031) x10^3u/L Absolute Lymphs (auto) (1.18-3.74) x10^3/uL Absolute Monos (auto) (0.24-0.86) x10^3/uL Absolute Nucleated RBC (0.00-0.012) x10^3u/L Lymphocytes % (19.3-51.7) % Monocytes % (4.7-12.5) % Eosinophils % (0.7-5.8) % Basophils % (0.1-1.2) % Absolute Granulocytes (1.56-6.13) x10^3/uL Basophils # (0.01-0.08) x10^3/uL Puncture Site RIGHT BRACHIAL pCO2 20 L* (35-45) mmHg pO2 111 H (75-100) mmHg pO2/FiO2 Ratio % Base Excess -8.5 L (-2.0-2.0) O2 Saturation 96.4 (94-100) g/dF ABG pH 7.44 (7.35-7.45) ABG HCO3 13.6 L* (22-28) ABG O2 Sat (Measured) 99.9 (95-100) % Bobby Test NOT APPLICABLE VBG pH (7.32-7.42) VBG pCO2 at Pat Temp (42-55) mm/Hg VBG pO2 at Pat Temp (25-40) mm/Hg VBG HCO3 (22-28) meq/L VBG O2 Sat (Nain) (95-100) VBG Base Excess (-2.0-2.0) VBG Hemoglobin VBG Carboxyhemoglobin (0.0-6.9) % T HGB A-a Gradient 14 a/A Ratio 0.89 Hemoglobin 11.9 Carboxyhemoglobin 2.5 (0.0-6.9) % THgb Methemoglobin 1.0 L (1.4-1.5) % POC Potassium (3.5-5.1) Temperature 37.0 C POC O2 Flow Rate 21 % Sodium 141 (135-145) mmol/L Potassium 3.9 3.8 (3.5-5.1) mmol/L Chloride 115 H (98-107) mmol/L Carbon Dioxide 13 L* (22-30) mmol/L Anion Gap 17.2 H (5-15) MEQ/L BUN 28 H (7-17) mg/dL Creatinine 0.94 (0.52-1.04) mg/dL Estimated GFR 72.1 ML/MIN Glucose 217 H (74-106) mg/dL POC Glucometer (74 to 106) mg/dL Lactic Acid 3.0 H (0.4-2.0) Calcium 9.1 (8.4-10.2) mg/dL Phosphorus (2.5-4.5) mg/dL Magnesium (1.6-2.3) mg/dL Total Bilirubin 2.90 H (0.2-1.3) mg/dL AST 25 (14-36) U/L ALT 27 (0-35) U/L Alkaline Phosphatase 101 (38-126) U/L Serum Total Protein 6.0 L (6.3-8.2) g/dL Albumin 3.5 (3.5-5.0) g/dL Urine Color (Yellow) Urine Appearance (Clear) Urine pH (4.6-8.0) Ur Specific [place] (1.005-1.030) Urine Protein (Negative) Urine Glucose (UA) (Negative) mg/dL Urine Ketones (Negative) Urine Blood (Negative) Urine Nitrite (Negative) Urine Bilirubin (Negative) Urine Urobilinogen (0.2) mg/dL Ur Leukocyte Esterase (Negative) U Hyaline Cast (Auto) (0-2) /LPF Urine Microscopic RBC (0-5) /HPF Urine Microscopic WBC (0-5) /HPF Ur Epithelial Cells (None Seen) /HPF Urine Bacteria (None Seen) /HPF Urine Culture Reflexed (NO) Ethyl Alcohol (0-10) mg/dL Slides for Path Review 06/16/24 06/16/24 06/16/24 Range/Units 17:10 17:56 18:10 WBC (3.98-10.04) x10^3/uL RBC (3.93-5.22) x10^6/uL Hgb (11.2-15.7) g/dL Hct (34.1-44.9) % MCV (79.4-94.8) fL MCH (25.6-32.2) pg MCHC (32.2-35.5) g/dL RDW (11.7-14.4) % Plt Count (182-369) x10^3/uL MPV (9.4-12.3) fL Gran % (34.0-71.1) % Immature Gran % (Auto) (0.001-0.429) % Nucleat RBC Rel Count (0.00-0.2) % Eos # (Auto) (0.04-0.36) x10^3/uL Immature Gran # (Auto) (0.001-0.031) x10^3u/L Absolute Lymphs (auto) (1.18-3.74) x10^3/uL Absolute Monos (auto) (0.24-0.86) x10^3/uL Absolute Nucleated RBC (0.00-0.012) x10^3u/L Lymphocytes % (19.3-51.7) % Monocytes % (4.7-12.5) % Eosinophils % (0.7-5.8) % Basophils % (0.1-1.2) % Absolute Granulocytes (1.56-6.13) x10^3/uL Basophils # (0.01-0.08) x10^3/uL Puncture Site pCO2 (35-45) mmHg pO2 (75-100) mmHg pO2/FiO2 Ratio % Base Excess (-2.0-2.0) O2 Saturation (94-100) g/dF ABG pH (7.35-7.45) ABG HCO3 (22-28) ABG O2 Sat (Measured) (95-100) % Bobby Test VBG pH (7.32-7.42) VBG pCO2 at Pat Temp (42-55) mm/Hg VBG pO2 at Pat Temp (25-40) mm/Hg VBG HCO3 (22-28) meq/L VBG O2 Sat (Nain) (95-100) VBG Base Excess (-2.0-2.0) VBG Hemoglobin VBG Carboxyhemoglobin (0.0-6.9) % T HGB A-a Gradient a/A Ratio Hemoglobin Carboxyhemoglobin (0.0-6.9) % THgb Methemoglobin (1.4-1.5) % POC Potassium (3.5-5.1) Temperature C POC O2 Flow Rate % Sodium 140 (135-145) mmol/L Potassium 3.9 (3.5-5.1) mmol/L Chloride 112 H (98-107) mmol/L Carbon Dioxide 15 L* (22-30) mmol/L Anion Gap 15.6 H (5-15) MEQ/L BUN 28 H (7-17) mg/dL Creatinine 0.87 (0.52-1.04) mg/dL Estimated GFR 79.1 ML/MIN Glucose 200 H (74-106) mg/dL POC Glucometer 179 H 168 H (74 to 106) mg/dL Lactic Acid (0.4-2.0) Calcium 9.1 (8.4-10.2) mg/dL Phosphorus 1.9 L (2.5-4.5) mg/dL Magnesium (1.6-2.3) mg/dL Total Bilirubin (0.2-1.3) mg/dL AST (14-36) U/L ALT (0-35) U/L Alkaline Phosphatase (38-126) U/L Serum Total Protein (6.3-8.2) g/dL Albumin (3.5-5.0) g/dL Urine Color (Yellow) Urine Appearance (Clear) Urine pH (4.6-8.0) Ur Specific [place] (1.005-1.030) Urine Protein (Negative) Urine Glucose (UA) (Negative) mg/dL Urine Ketones (Negative) Urine Blood (Negative) Urine Nitrite (Negative) Urine Bilirubin (Negative) Urine Urobilinogen (0.2) mg/dL Ur Leukocyte Esterase (Negative) U Hyaline Cast (Auto) (0-2) /LPF Urine Microscopic RBC (0-5) /HPF Urine Microscopic WBC (0-5) /HPF Ur Epithelial Cells (None Seen) /HPF Urine Bacteria (None Seen) /HPF Urine Culture Reflexed (NO) Ethyl Alcohol (0-10) mg/dL Slides for Path Review 06/16/24 06/16/24 06/16/24 Range/Units 18:44 19:35 20:28 WBC (3.98-10.04) x10^3/uL RBC (3.93-5.22) x10^6/uL Hgb (11.2-15.7) g/dL Hct (34.1-44.9) % MCV (79.4-94.8) fL MCH (25.6-32.2) pg MCHC (32.2-35.5) g/dL RDW (11.7-14.4) % Plt Count (182-369) x10^3/uL MPV (9.4-12.3) fL Gran % (34.0-71.1) % Immature Gran % (Auto) (0.001-0.429) % Nucleat RBC Rel Count (0.00-0.2) % Eos # (Auto) (0.04-0.36) x10^3/uL Immature Gran # (Auto) (0.001-0.031) x10^3u/L Absolute Lymphs (auto) (1.18-3.74) x10^3/uL Absolute Monos (auto) (0.24-0.86) x10^3/uL Absolute Nucleated RBC (0.00-0.012) x10^3u/L Lymphocytes % (19.3-51.7) % Monocytes % (4.7-12.5) % Eosinophils % (0.7-5.8) % Basophils % (0.1-1.2) % Absolute Granulocytes (1.56-6.13) x10^3/uL Basophils # (0.01-0.08) x10^3/uL Puncture Site pCO2 (35-45) mmHg pO2 (75-100) mmHg pO2/FiO2 Ratio % Base Excess (-2.0-2.0) O2 Saturation (94-100) g/dF ABG pH (7.35-7.45) ABG HCO3 (22-28) ABG O2 Sat (Measured) (95-100) % Bobby Test VBG pH (7.32-7.42) VBG pCO2 at Pat Temp (42-55) mm/Hg VBG pO2 at Pat Temp (25-40) mm/Hg VBG HCO3 (22-28) meq/L VBG O2 Sat (Nain) (95-100) VBG Base Excess (-2.0-2.0) VBG Hemoglobin VBG Carboxyhemoglobin (0.0-6.9) % T HGB A-a Gradient a/A Ratio Hemoglobin Carboxyhemoglobin (0.0-6.9) % THgb Methemoglobin (1.4-1.5) % POC Potassium (3.5-5.1) Temperature C POC O2 Flow Rate % Sodium (135-145) mmol/L Potassium (3.5-5.1) mmol/L Chloride (98-107) mmol/L Carbon Dioxide (22-30) mmol/L Anion Gap (5-15) MEQ/L BUN (7-17) mg/dL Creatinine (0.52-1.04) mg/dL Estimated GFR ML/MIN Glucose (74-106) mg/dL POC Glucometer 209 H 167 H 172 H (74 to 106) mg/dL Lactic Acid (0.4-2.0) Calcium (8.4-10.2) mg/dL Phosphorus (2.5-4.5) mg/dL Magnesium (1.6-2.3) mg/dL Total Bilirubin (0.2-1.3) mg/dL AST (14-36) U/L ALT (0-35) U/L Alkaline Phosphatase (38-126) U/L Serum Total Protein (6.3-8.2) g/dL Albumin (3.5-5.0) g/dL Urine Color (Yellow) Urine Appearance (Clear) Urine pH (4.6-8.0) Ur Specific [place] (1.005-1.030) Urine Protein (Negative) Urine Glucose (UA) (Negative) mg/dL Urine Ketones (Negative) Urine Blood (Negative) Urine Nitrite (Negative) Urine Bilirubin (Negative) Urine Urobilinogen (0.2) mg/dL Ur Leukocyte Esterase (Negative) U Hyaline Cast (Auto) (0-2) /LPF Urine Microscopic RBC (0-5) /HPF Urine Microscopic WBC (0-5) /HPF Ur Epithelial Cells (None Seen) /HPF Urine Bacteria (None Seen) /HPF Urine Culture Reflexed (NO) Ethyl Alcohol (0-10) mg/dL Slides for Path Review 06/16/24 Range/Units 21:13 WBC (3.98-10.04) x10^3/uL RBC (3.93-5.22) x10^6/uL Hgb (11.2-15.7) g/dL Hct (34.1-44.9) % MCV (79.4-94.8) fL MCH (25.6-32.2) pg MCHC (32.2-35.5) g/dL RDW (11.7-14.4) % Plt Count (182-369) x10^3/uL MPV (9.4-12.3) fL Gran % (34.0-71.1) % Immature Gran % (Auto) (0.001-0.429) % Nucleat RBC Rel Count (0.00-0.2) % Eos # (Auto) (0.04-0.36) x10^3/uL Immature Gran # (Auto) (0.001-0.031) x10^3u/L Absolute Lymphs (auto) (1.18-3.74) x10^3/uL Absolute Monos (auto) (0.24-0.86) x10^3/uL Absolute Nucleated RBC (0.00-0.012) x10^3u/L Lymphocytes % (19.3-51.7) % Monocytes % (4.7-12.5) % Eosinophils % (0.7-5.8) % Basophils % (0.1-1.2) % Absolute Granulocytes (1.56-6.13) x10^3/uL Basophils # (0.01-0.08) x10^3/uL Puncture Site pCO2 (35-45) mmHg pO2 (75-100) mmHg pO2/FiO2 Ratio % Base Excess (-2.0-2.0) O2 Saturation (94-100) g/dF ABG pH (7.35-7.45) ABG HCO3 (22-28) ABG O2 Sat (Measured) (95-100) % Bobby Test VBG pH (7.32-7.42) VBG pCO2 at Pat Temp (42-55) mm/Hg VBG pO2 at Pat Temp (25-40) mm/Hg VBG HCO3 (22-28) meq/L VBG O2 Sat (Nain) (95-100) VBG Base Excess (-2.0-2.0) VBG Hemoglobin VBG Carboxyhemoglobin (0.0-6.9) % T HGB A-a Gradient a/A Ratio Hemoglobin Carboxyhemoglobin (0.0-6.9) % THgb Methemoglobin (1.4-1.5) % POC Potassium (3.5-5.1) Temperature C POC O2 Flow Rate % Sodium (135-145) mmol/L Potassium (3.5-5.1) mmol/L Chloride (98-107) mmol/L Carbon Dioxide (22-30) mmol/L Anion Gap (5-15) MEQ/L BUN (7-17) mg/dL Creatinine (0.52-1.04) mg/dL Estimated GFR ML/MIN Glucose (74-106) mg/dL POC Glucometer 174 H (74 to 106) mg/dL Lactic Acid (0.4-2.0) Calcium (8.4-10.2) mg/dL Phosphorus (2.5-4.5) mg/dL Magnesium (1.6-2.3) mg/dL Total Bilirubin (0.2-1.3) mg/dL AST (14-36) U/L ALT (0-35) U/L Alkaline Phosphatase (38-126) U/L Serum Total Protein (6.3-8.2) g/dL Albumin (3.5-5.0) g/dL Urine Color (Yellow) Urine Appearance (Clear) Urine pH (4.6-8.0) Ur Specific [place] (1.005-1.030) Urine Protein (Negative) Urine Glucose (UA) (Negative) mg/dL Urine Ketones (Negative) Urine Blood (Negative) Urine Nitrite (Negative) Urine Bilirubin (Negative) Urine Urobilinogen (0.2) mg/dL Ur Leukocyte Esterase (Negative) U Hyaline Cast (Auto) (0-2) /LPF Urine Microscopic RBC (0-5) /HPF Urine Microscopic WBC (0-5) /HPF Ur Epithelial Cells (None Seen) /HPF Urine Bacteria (None Seen) /HPF Urine Culture Reflexed (NO) Ethyl Alcohol (0-10) mg/dL Slides for Path Review Accuchecks Date 06/16/24 Date 06/16/24 Date 06/16/24 Date 06/16/24 Date 06/16/24 Time 15:00 Time 13:21 Time 11:42 - Radiology Impressions Radiology Exams & Impressions: Radiology Procedures Category Date Time Status HEAD WITHOUT CONTRAST [CT] Stat Exams 06/16/24 12:26 Completed Telemedicine Encounter - Telemedicine Encounter Telemedicine Encounter: "The entirety of this encounter was performed via Telemedicine" This visit was performed using real-time audio and video connection between my location and thepatients locationwith the assistance of a surrogateat the patients location. Written or verbal consent was obtained from the patient/guardian to perform this visit [facility] technology. Any patient questions regarding the telemedicine interaction were answered. RICHA Encounter - RICHA Encounter Attestation RICHA Encounter Attestation: "IhchristinapersonalDIANNA Valdes andhavediscussed pertinent aspects of their care with Yuliya Rocha agree with the history, physical exam (any modifications based on my personal exam will be noted below), assessment, and plan as outlined in original note. Please see immediately below for my summary of findings and additional assessment and plan along with any meaningful corrections/explanations to the Subjective/Objective portions of the RICHA note will be noted." My portion of the encounter took place via telemedicine. -Patient presented with DKA due to problems with insulin pump. Initiated on management with IV insulin, fluids, BMP and ABG monitoring. Would keep the patient on the insulin even when gap closes as it will be easier to transition to her pump in the morning.
[2024-06-16] MEDS ORDERED: NORCO 5/325 MG PO PRN (17:28)
[2024-06-16] MEDS: D5W/0.45NS W/ 20mEq KCl 1000 ML 1,000 ML IV SCH (17:30)
[2024-06-16] MEDS ORDERED: NON-FORMULARY ITEM (Evolocumab [Repatha Syringe] 140 MG/ML Syringe) SQ SCH (17:30)
[2024-06-16] MEDS: Sodium Chloride 0.9% 1000 ML 1,000 ML IV SCH ×2 (17:34→22:09)
[2024-06-16] MEDS: POTASSIUM CHLORIDE 20 mEq IN WATER 100ML 20 MEQ/100 ML BAG IV SCH ×2 (17:34→23:09)
[2024-06-16] MEDS ORDERED: Glutose 15 GM ORAL GEL PO PRN (17:36)
[2024-06-16] MEDS ORDERED: GlucaGen 1 MG IM PRN (17:36)
[2024-06-16] MEDS ORDERED: D50W 50 ml Abboject IV PRN (17:36)
[2024-06-16] MEDS: MYXREDLIN 100 UNIT/100 ML BAG 100 UNIT/100 ML PLAST..BAG IV PRN (17:50)
[2024-06-16 18:28] LABS: ANION GAP 15.6 MEQ/L (5-15); Calcium 9.1 mg/dL (8.4-10.2); Creatinine 1 0.87 mg/dL (0.52-1.04); EST GLOMERULAR FILTRATION RATE 79.1 ML/MIN; PHOSPHOROUS 1.9 mg/dL (2.5-4.5); Potassium 3.9 mmol/L (3.5-5.1)
[2024-06-16] MEDS ORDERED: Tessalon Perles 100 MG PO PRN (20:33)
[2024-06-16] MEDS: CEPACOL SORE THROAT LOZENGE PO PRN (20:38)
[2024-06-16 22:23] LABS: Calcium 8.9 mg/dL (8.4-10.2); Creatinine 1 0.9 mg/dL (0.52-1.04); Potassium 3.7 mmol/L (3.5-5.1)
[2024-06-17 02:19] LABS: Absolute Neutrophil Ct (ANC) 11.04 x10^3/uL (1.56-6.13); BASOPHIL % 0.2 % (0.1-1.2); Basophil (Absolute #) 0.03 x10^3/uL (0.01-0.08); Eosinophil (Absolute #) 0 x10^3/uL (0.04-0.36); Hematocrit 32.9 % (34.1-44.9); Hemoglobin 10.7 g/dL (11.2-15.7); IMMATURE GRAN # 0.07 x10^3u/L (0.001-0.031); IMMATURE GRAN % 0.5 % (0.001-0.429); Lymphocyte (Absolute #) 1.65 x10^3/uL (1.18-3.74); Lymphocytes % 11.7 % (19.3-51.7); Mean Cell Volume 91.9 fL (79.4-94.8); Mean Corpuscular Hemoglobin 29.9 pg (25.6-32.2); Mean Corpuscular Hgb Concent. 32.5 g/dL (32.2-35.5); Mean Platelet Volume 9.3 fL (9.4-12.3); Monocyte (Absolute #) 1.33 x10^3/uL (0.24-0.86); Monocytes % 9.4 % (4.7-12.5); Neutrophil % 78.2 % (34.0-71.1); Platelet Count 244 x10^3/uL (182-369); Red Blood Count 3.58 x10^6/uL (3.93-5.22); Red Cell Distribution Width 12.7 % (11.7-14.4); White Blood Count 14.1 x10^3/uL (3.98-10.04)
[2024-06-17 02:31] LABS: ALBUMIN 3.1 g/dL (3.5-5.0); ANION GAP 12.9 MEQ/L (5-15); BILIRUBIN,TOTAL 2.6 mg/dL (0.2-1.3); Calcium 8.7 mg/dL (8.4-10.2); Creatinine 1 0.84 mg/dL (0.52-1.04); EST GLOMERULAR FILTRATION RATE 82.5 ML/MIN; Total Protein 5.6 g/dL (6.3-8.2)
[2024-06-17 02:41] LABS: Potassium 4.7 mmol/L (3.5-5.1)
--- NOTE | 2024-06-17 05:17 | PCM.NOTE ---
Date and Time: 06/17/24 0516 Subjective Assessment: HPI: Ms. Beach is a 53 year old female with a pmhx of HLD, HTN, type 1 diabetes, hypothyroidism, anxiety, and panic disorder who presented to ED 06/16/24 via EMS with AMS and hyperglycemia. 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 The managing attorney is sending her a piano player which will be arriving any time now. Patient was seen in ED 06/15/24 after her glucometer was reading high. Patient's daughter stated that the patient was discharged to home on 06/15/2024 at approximately 9 PM from our emergency department. The clinical impression was hyperglycemia dyspnea nausea. Lab findings were consistent with DKA. Patient was discharged home. Today patient had several episodes of vomiting and became altered. Despite receiving 30 units of insulin at home, blood glucose levels were still greater than 400- thus prompting return to ED. Upon arrival vitals with noted tachycardia, otherwise stable. CXR with no acute findings. CT head with no acute findings. Lab findings consistent with DKA. Patient received a total of 3L of IVF and 6 units of Humalin R in ED. Labs and mentation are improved. Patient A&O x 3 during interview. Plan for admission for DKA. Will initiate DKA protocol. 06/17/24: Patient feeling better today with mild headache. Does endorse diarrheal episode this morning. Labs are improving. Daughter to bring in insulin pump today. TBili is elevated on labwork - will order US of RUQ for evaluation - WBC decreased to 14.1 - UA/ CXR negative. - Review of Systems Constitutional: No Symptoms Eyes: No Symptoms Ears, Nose, & Throat: No Symptoms Respiratory: No Symptoms Cardiac: No Symptoms Abdominal/Gastrointestinal: Diarrhea Genitourinary Symptoms: No Symptoms Musculoskeletal: No Symptoms Skin: No Symptoms Neurological: Headache Psychological: No Symptoms Endocrine: No Symptoms Hematologic/Lymphatic: No Symptoms Immunological/Allergic: No Symptoms Objective Exam General Appearance: no apparent distress Neurologic Exam: alert, oriented x 3, cooperative Skin Exam: normal color Eye Exam: PERRL Ears, Nose, Throat Exam: normal ENT inspection Neck Exam: normal inspection Respiratory Exam: normal breath sounds, lungs clear Cardiovascular Exam: regular rate/rhythm, normal heart sounds Gastrointestinal/Abdomen Exam: soft, normal bowel sounds Extremity Exam: normal inspection Back Exam: normal inspection Pelvic Exam: deferred Rectal Exam: deferred Objective Data Vital Signs: Vital Signs - 24 hr Temp Pulse Resp BP BP Pulse Ox 06/17/24 05:00 103 H 22 99/63 99 06/17/24 04:00 98.7 F 97 H 19 102/58 100 06/17/24 03:00 99 H 20 97/61 100 06/17/24 02:14 99 H 22 96/63 100 06/17/24 02:00 100 H 21 89/58 98 06/17/24 01:02 100 H 21 109/62 98 06/17/24 00:01 99 F 104 H 20 90/58 99 06/16/24 23:00 107 H 14 102/60 100 06/16/24 22:30 108 H 24 87/61 98 06/16/24 22:05 109 H 24 86/40 100 06/16/24 22:00 111 H 15 79/42 99 06/16/24 21:17 104/58 06/16/24 21:00 114 H 14 80/48 100 06/16/24 20:00 98 F 112 H 24 118/63 99 06/16/24 19:42 108 H 06/16/24 19:00 107 H 26 H 108/57 99 06/16/24 18:00 113 H 37 H 93/42 100 06/16/24 17:35 112 H 26 H 94/48 100 06/16/24 17:12 98.2 F 111 H 16 121/61 100 06/16/24 16:51 110 H 17 121/61 82 L 06/16/24 16:00 117 H 31 H 104/60 99 06/16/24 15:30 114 H 30 H 104/55 98 06/16/24 15:12 114 H 26 H 107/61 99 06/16/24 15:07 123 H 27 H 69/37 100 06/16/24 15:00 119 H 24 86/46 100 06/16/24 14:30 117 H 23 101/62 100 06/16/24 14:10 114 H 23 100 06/16/24 14:04 119 H 29 H 98 06/16/24 13:22 123 H 15 105/83 100 06/16/24 12:30 119 H 26 H 138/79 100 08/07/24 12:12 100 06/16/24 12:11 100 06/16/24 12:00 107 H 24 119/68 100 06/16/24 11:37 98.3 F 113 H 24 136/69 100 Pain Assessment - Last Documented Pain Intensity 0 Intake and Output: Intake & Output 06/14/24 06/15/24 06/16/24 06/17/24 11:59 11:59 11:59 11:59 Intake Total 100 Output Total 600 Balance -500 Weight 83.3 kg 85.7 kg Lab Results: Lab Results-Last 24 Hours 06/16/24 06/16/24 06/16/24 Range/Units 11:43 11:55 11:55 WBC (3.98-10.04) x10^3/uL RBC (3.93-5.22) x10^6/uL Hgb (11.2-15.7) g/dL Hct (34.1-44.9) % MCV (79.4-94.8) fL MCH (25.6-32.2) pg MCHC (32.2-35.5) g/dL RDW (11.7-14.4) % Plt Count (182-369) x10^3/uL MPV (9.4-12.3) fL Gran % (34.0-71.1) % Immature Gran % (Auto) (0.001-0.429) % Nucleat RBC Rel Count (0.00-0.2) % Eos # (Auto) (0.04-0.36) x10^3/uL Immature Gran # (Auto) (0.001-0.031) x10^3u/L Absolute Lymphs (auto) (1.18-3.74) x10^3/uL Absolute Monos (auto) (0.24-0.86) x10^3/uL Absolute Nucleated RBC (0.00-0.012) x10^3u/L Lymphocytes % (19.3-51.7) % Monocytes % (4.7-12.5) % Eosinophils % (0.7-5.8) % Basophils % (0.1-1.2) % Absolute Granulocytes (1.56-6.13) x10^3/uL Basophils # (0.01-0.08) x10^3/uL Puncture Site pCO2 (35-45) mmHg pO2 (75-100) mmHg pO2/FiO2 Ratio 21.0 % Base Excess (-2.0-2.0) O2 Saturation (94-100) g/dF ABG pH (7.35-7.45) ABG HCO3 (22-28) ABG O2 Sat (Measured) (95-100) % Bobby Test VBG pH 7.16 L* (7.32-7.42) VBG pCO2 at Pat Temp 27 L (42-55) mm/Hg VBG pO2 at Pat Temp 45 H (25-40) mm/Hg VBG HCO3 9.6 L* (22-28) meq/L VBG O2 Sat (Nain) 75.9 L (95-100) VBG Base Excess -17.6 L (-2.0-2.0) VBG Hemoglobin 13.6 VBG Carboxyhemoglobin 3.7 (0.0-6.9) % T HGB A-a Gradient a/A Ratio Hemoglobin Carboxyhemoglobin (0.0-6.9) % THgb Methemoglobin (1.4-1.5) % POC Potassium 5.0 (3.5-5.1) Temperature C POC O2 Flow Rate % Sodium (135-145) mmol/L Potassium (3.5-5.1) mmol/L Chloride (98-107) mmol/L Carbon Dioxide (22-30) mmol/L Anion Gap (5-15) MEQ/L BUN (7-17) mg/dL Creatinine (0.52-1.04) mg/dL Estimated GFR ML/MIN Glucose (74-106) mg/dL POC Glucometer 473 H (74 to 106) mg/dL Lactic Acid 5.3 H (0.4-2.0) Calcium (8.4-10.2) mg/dL Phosphorus (2.5-4.5) mg/dL Magnesium (1.6-2.3) mg/dL Total Bilirubin (0.2-1.3) mg/dL AST (14-36) U/L ALT (0-35) U/L Alkaline Phosphatase (38-126) U/L Serum Total Protein (6.3-8.2) g/dL Albumin (3.5-5.0) g/dL Urine Color (Yellow) Urine Appearance (Clear) Urine pH (4.6-8.0) Ur Specific [place] (1.005-1.030) Urine Protein (Negative) Urine Glucose (UA) (Negative) mg/dL Urine Ketones (Negative) Urine Blood (Negative) Urine Nitrite (Negative) Urine Bilirubin (Negative) Urine Urobilinogen (0.2) mg/dL Ur Leukocyte Esterase (Negative) U Hyaline Cast (Auto) (0-2) /LPF Urine Microscopic RBC (0-5) /HPF Urine Microscopic WBC (0-5) /HPF Ur Epithelial Cells (None Seen) /HPF Urine Bacteria (None Seen) /HPF Urine Culture Reflexed (NO) Ethyl Alcohol (0-10) mg/dL Slides for Path Review 06/16/24 06/16/24 06/16/24 Range/Units 13:21 13:25 13:25 WBC 23.9 H (3.98-10.04) x10^3/uL RBC 4.34 (3.93-5.22) x10^6/uL Hgb 12.9 (11.2-15.7) g/dL Hct 40.9 (34.1-44.9) % MCV 94.2 (79.4-94.8) fL MCH 29.7 (25.6-32.2) pg MCHC 31.5 L (32.2-35.5) g/dL RDW 12.4 (11.7-14.4) % Plt Count 385 H (182-369) x10^3/uL MPV 9.9 (9.4-12.3) fL Gran % 89.9 H (34.0-71.1) % Immature Gran % (Auto) 0.8 H (0.001-0.429) % Nucleat RBC Rel Count 0.0 (0.00-0.2) % Eos # (Auto) 0.01 L (0.04-0.36) x10^3/uL Immature Gran # (Auto) 0.19 H (0.001-0.031) x10^3u/L Absolute Lymphs (auto) 1.07 L (1.18-3.74) x10^3/uL Absolute Monos (auto) 1.09 H (0.24-0.86) x10^3/uL Absolute Nucleated RBC 0.00 (0.00-0.012) x10^3u/L Lymphocytes % 4.5 L (19.3-51.7) % Monocytes % 4.6 L (4.7-12.5) % Eosinophils % 0.0 L (0.7-5.8) % Basophils % 0.2 (0.1-1.2) % Absolute Granulocytes 21.47 H (1.56-6.13) x10^3/uL Basophils # 0.04 (0.01-0.08) x10^3/uL Puncture Site pCO2 (35-45) mmHg pO2 (75-100) mmHg pO2/FiO2 Ratio % Base Excess (-2.0-2.0) O2 Saturation (94-100) g/dF ABG pH (7.35-7.45) ABG HCO3 (22-28) ABG O2 Sat (Measured) (95-100) % Bobby Test VBG pH (7.32-7.42) VBG pCO2 at Pat Temp (42-55) mm/Hg VBG pO2 at Pat Temp (25-40) mm/Hg VBG HCO3 (22-28) meq/L VBG O2 Sat (Nain) (95-100) VBG Base Excess (-2.0-2.0) VBG Hemoglobin VBG Carboxyhemoglobin (0.0-6.9) % T HGB A-a Gradient a/A Ratio Hemoglobin Carboxyhemoglobin (0.0-6.9) % THgb Methemoglobin (1.4-1.5) % POC Potassium (3.5-5.1) Temperature C POC O2 Flow Rate % Sodium 142 (135-145) mmol/L Potassium 4.1 (3.5-5.1) mmol/L Chloride 116 H D (98-107) mmol/L Carbon Dioxide < 5 L* (22-30) mmol/L Anion Gap (5-15) MEQ/L BUN 29 H (7-17) mg/dL Creatinine 1.11 H (0.52-1.04) mg/dL Estimated GFR 59.1 ML/MIN Glucose 315 H (74-106) mg/dL POC Glucometer 360 H (74 to 106) mg/dL Lactic Acid (0.4-2.0) Calcium 9.4 (8.4-10.2) mg/dL Phosphorus (2.5-4.5) mg/dL Magnesium 2.1 (1.6-2.3) mg/dL Total Bilirubin 3.40 H (0.2-1.3) mg/dL AST 29 (14-36) U/L ALT 36 H (0-35) U/L Alkaline Phosphatase 119 (38-126) U/L Serum Total Protein 6.9 (6.3-8.2) g/dL Albumin 4.2 (3.5-5.0) g/dL Urine Color (Yellow) Urine Appearance (Clear) Urine pH (4.6-8.0) Ur Specific [place] (1.005-1.030) Urine Protein (Negative) Urine Glucose (UA) (Negative) mg/dL Urine Ketones (Negative) Urine Blood (Negative) Urine Nitrite (Negative) Urine Bilirubin (Negative) Urine Urobilinogen (0.2) mg/dL Ur Leukocyte Esterase (Negative) U Hyaline Cast (Auto) (0-2) /LPF Urine Microscopic RBC (0-5) /HPF Urine Microscopic WBC (0-5) /HPF Ur Epithelial Cells (None Seen) /HPF Urine Bacteria (None Seen) /HPF Urine Culture Reflexed (NO) Ethyl Alcohol < 10 (0-10) mg/dL Slides for Path Review YES 06/16/24 06/16/24 06/16/24 Range/Units 14:10 14:12 15:00 WBC (3.98-10.04) x10^3/uL RBC (3.93-5.22) x10^6/uL Hgb (11.2-15.7) g/dL Hct (34.1-44.9) % MCV (79.4-94.8) fL MCH (25.6-32.2) pg MCHC (32.2-35.5) g/dL RDW (11.7-14.4) % Plt Count (182-369) x10^3/uL MPV (9.4-12.3) fL Gran % (34.0-71.1) % Immature Gran % (Auto) (0.001-0.429) % Nucleat RBC Rel Count (0.00-0.2) % Eos # (Auto) (0.04-0.36) x10^3/uL Immature Gran # (Auto) (0.001-0.031) x10^3u/L Absolute Lymphs (auto) (1.18-3.74) x10^3/uL Absolute Monos (auto) (0.24-0.86) x10^3/uL Absolute Nucleated RBC (0.00-0.012) x10^3u/L Lymphocytes % (19.3-51.7) % Monocytes % (4.7-12.5) % Eosinophils % (0.7-5.8) % Basophils % (0.1-1.2) % Absolute Granulocytes (1.56-6.13) x10^3/uL Basophils # (0.01-0.08) x10^3/uL Puncture Site NA pCO2 13 L* (35-45) mmHg pO2 112 H (75-100) mmHg pO2/FiO2 Ratio % Base Excess -16.5 L (-2.0-2.0) O2 Saturation 96.1 (94-100) g/dF ABG pH 7.32 L (7.35-7.45) ABG HCO3 6.7 L* (22-28) ABG O2 Sat (Measured) 99.0 (95-100) % Bobby Test RB VBG pH (7.32-7.42) VBG pCO2 at Pat Temp (42-55) mm/Hg VBG pO2 at Pat Temp (25-40) mm/Hg VBG HCO3 (22-28) meq/L VBG O2 Sat (Nain) (95-100) VBG Base Excess (-2.0-2.0) VBG Hemoglobin VBG Carboxyhemoglobin (0.0-6.9) % T HGB A-a Gradient 21 a/A Ratio 0.84 Hemoglobin 13.2 Carboxyhemoglobin 1.8 (0.0-6.9) % THgb Methemoglobin 1.1 L (1.4-1.5) % POC Potassium (3.5-5.1) Temperature 37.0 C POC O2 Flow Rate 21 % Sodium (135-145) mmol/L Potassium 4.2 (3.5-5.1) mmol/L Chloride (98-107) mmol/L Carbon Dioxide (22-30) mmol/L Anion Gap (5-15) MEQ/L BUN (7-17) mg/dL Creatinine (0.52-1.04) mg/dL Estimated GFR ML/MIN Glucose (74-106) mg/dL POC Glucometer 221 H (74 to 106) mg/dL Lactic Acid (0.4-2.0) Calcium (8.4-10.2) mg/dL Phosphorus (2.5-4.5) mg/dL Magnesium (1.6-2.3) mg/dL Total Bilirubin (0.2-1.3) mg/dL AST (14-36) U/L ALT (0-35) U/L Alkaline Phosphatase (38-126) U/L Serum Total Protein (6.3-8.2) g/dL Albumin (3.5-5.0) g/dL Urine Color Yellow (Yellow) Urine Appearance Clear (Clear) Urine pH 5.0 (4.6-8.0) Ur Specific [place] 1.025 (1.005-1.030) Urine Protein Negative (Negative) Urine Glucose (UA) >=1000 A (Negative) mg/dL Urine Ketones >=160 A (Negative) Urine Blood Negative (Negative) Urine Nitrite Negative (Negative) Urine Bilirubin Negative (Negative) Urine Urobilinogen 0.2 (0.2) mg/dL Ur Leukocyte Esterase Negative (Negative) U Hyaline Cast (Auto) NONE SEEN (0-2) /LPF Urine Microscopic RBC 3-5 (0-5) /HPF Urine Microscopic WBC 0-2 (0-5) /HPF Ur Epithelial Cells None Seen (None Seen) /HPF Urine Bacteria Few A (None Seen) /HPF Urine Culture Reflexed NO (NO) Ethyl Alcohol (0-10) mg/dL Slides for Path Review 06/16/24 06/16/24 06/16/24 Range/Units 15:13 15:13 16:00 WBC (3.98-10.04) x10^3/uL RBC (3.93-5.22) x10^6/uL Hgb (11.2-15.7) g/dL Hct (34.1-44.9) % MCV (79.4-94.8) fL MCH (25.6-32.2) pg MCHC (32.2-35.5) g/dL RDW (11.7-14.4) % Plt Count (182-369) x10^3/uL MPV (9.4-12.3) fL Gran % (34.0-71.1) % Immature Gran % (Auto) (0.001-0.429) % Nucleat RBC Rel Count (0.00-0.2) % Eos # (Auto) (0.04-0.36) x10^3/uL Immature Gran # (Auto) (0.001-0.031) x10^3u/L Absolute Lymphs (auto) (1.18-3.74) x10^3/uL Absolute Monos (auto) (0.24-0.86) x10^3/uL Absolute Nucleated RBC (0.00-0.012) x10^3u/L Lymphocytes % (19.3-51.7) % Monocytes % (4.7-12.5) % Eosinophils % (0.7-5.8) % Basophils % (0.1-1.2) % Absolute Granulocytes (1.56-6.13) x10^3/uL Basophils # (0.01-0.08) x10^3/uL Puncture Site RIGHT BRACHIAL pCO2 20 L* (35-45) mmHg pO2 111 H (75-100) mmHg pO2/FiO2 Ratio % Base Excess -8.5 L (-2.0-2.0) O2 Saturation 96.4 (94-100) g/dF ABG pH 7.44 (7.35-7.45) ABG HCO3 13.6 L* (22-28) ABG O2 Sat (Measured) 99.9 (95-100) % Bobby Test NOT APPLICABLE VBG pH (7.32-7.42) VBG pCO2 at Pat Temp (42-55) mm/Hg VBG pO2 at Pat Temp (25-40) mm/Hg VBG HCO3 (22-28) meq/L VBG O2 Sat (Nain) (95-100) VBG Base Excess (-2.0-2.0) VBG Hemoglobin VBG Carboxyhemoglobin (0.0-6.9) % T HGB A-a Gradient 14 a/A Ratio 0.89 Hemoglobin 11.9 Carboxyhemoglobin 2.5 (0.0-6.9) % THgb Methemoglobin 1.0 L (1.4-1.5) % POC Potassium (3.5-5.1) Temperature 37.0 C POC O2 Flow Rate 21 % Sodium 141 (135-145) mmol/L Potassium 3.9 3.8 (3.5-5.1) mmol/L Chloride 115 H (98-107) mmol/L Carbon Dioxide 13 L* (22-30) mmol/L Anion Gap 17.2 H (5-15) MEQ/L BUN 28 H (7-17) mg/dL Creatinine 0.94 (0.52-1.04) mg/dL Estimated GFR 72.1 ML/MIN Glucose 217 H (74-106) mg/dL POC Glucometer (74 to 106) mg/dL Lactic Acid 3.0 H (0.4-2.0) Calcium 9.1 (8.4-10.2) mg/dL Phosphorus (2.5-4.5) mg/dL Magnesium (1.6-2.3) mg/dL Total Bilirubin 2.90 H (0.2-1.3) mg/dL AST 25 (14-36) U/L ALT 27 (0-35) U/L Alkaline Phosphatase 101 (38-126) U/L Serum Total Protein 6.0 L (6.3-8.2) g/dL Albumin 3.5 (3.5-5.0) g/dL Urine Color (Yellow) Urine Appearance (Clear) Urine pH (4.6-8.0) Ur Specific [place] (1.005-1.030) Urine Protein (Negative) Urine Glucose (UA) (Negative) mg/dL Urine Ketones (Negative) Urine Blood (Negative) Urine Nitrite (Negative) Urine Bilirubin (Negative) Urine Urobilinogen (0.2) mg/dL Ur Leukocyte Esterase (Negative) U Hyaline Cast (Auto) (0-2) /LPF Urine Microscopic RBC (0-5) /HPF Urine Microscopic WBC (0-5) /HPF Ur Epithelial Cells (None Seen) /HPF Urine Bacteria (None Seen) /HPF Urine Culture Reflexed (NO) Ethyl Alcohol (0-10) mg/dL Slides for Path Review 06/16/24 06/16/24 06/16/24 Range/Units 17:10 17:56 18:10 WBC (3.98-10.04) x10^3/uL RBC (3.93-5.22) x10^6/uL Hgb (11.2-15.7) g/dL Hct (34.1-44.9) % MCV (79.4-94.8) fL MCH (25.6-32.2) pg MCHC (32.2-35.5) g/dL RDW (11.7-14.4) % Plt Count (182-369) x10^3/uL MPV (9.4-12.3) fL Gran % (34.0-71.1) % Immature Gran % (Auto) (0.001-0.429) % Nucleat RBC Rel Count (0.00-0.2) % Eos # (Auto) (0.04-0.36) x10^3/uL Immature Gran # (Auto) (0.001-0.031) x10^3u/L Absolute Lymphs (auto) (1.18-3.74) x10^3/uL Absolute Monos (auto) (0.24-0.86) x10^3/uL Absolute Nucleated RBC (0.00-0.012) x10^3u/L Lymphocytes % (19.3-51.7) % Monocytes % (4.7-12.5) % Eosinophils % (0.7-5.8) % Basophils % (0.1-1.2) % Absolute Granulocytes (1.56-6.13) x10^3/uL Basophils # (0.01-0.08) x10^3/uL Puncture Site pCO2 (35-45) mmHg pO2 (75-100) mmHg pO2/FiO2 Ratio % Base Excess (-2.0-2.0) O2 Saturation (94-100) g/dF ABG pH (7.35-7.45) ABG HCO3 (22-28) ABG O2 Sat (Measured) (95-100) % Bobby Test VBG pH (7.32-7.42) VBG pCO2 at Pat Temp (42-55) mm/Hg VBG pO2 at Pat Temp (25-40) mm/Hg VBG HCO3 (22-28) meq/L VBG O2 Sat (Nain) (95-100) VBG Base Excess (-2.0-2.0) VBG Hemoglobin VBG Carboxyhemoglobin (0.0-6.9) % T HGB A-a Gradient a/A Ratio Hemoglobin Carboxyhemoglobin (0.0-6.9) % THgb Methemoglobin (1.4-1.5) % POC Potassium (3.5-5.1) Temperature C POC O2 Flow Rate % Sodium 140 (135-145) mmol/L Potassium 3.9 (3.5-5.1) mmol/L Chloride 112 H (98-107) mmol/L Carbon Dioxide 15 L* (22-30) mmol/L Anion Gap 15.6 H (5-15) MEQ/L BUN 28 H (7-17) mg/dL Creatinine 0.87 (0.52-1.04) mg/dL Estimated GFR 79.1 ML/MIN Glucose 200 H (74-106) mg/dL POC Glucometer 179 H 168 H (74 to 106) mg/dL Lactic Acid (0.4-2.0) Calcium 9.1 (8.4-10.2) mg/dL Phosphorus 1.9 L (2.5-4.5) mg/dL Magnesium (1.6-2.3) mg/dL Total Bilirubin (0.2-1.3) mg/dL AST (14-36) U/L ALT (0-35) U/L Alkaline Phosphatase (38-126) U/L Serum Total Protein (6.3-8.2) g/dL Albumin (3.5-5.0) g/dL Urine Color (Yellow) Urine Appearance (Clear) Urine pH (4.6-8.0) Ur Specific [place] (1.005-1.030) Urine Protein (Negative) Urine Glucose (UA) (Negative) mg/dL Urine Ketones (Negative) Urine Blood (Negative) Urine Nitrite (Negative) Urine Bilirubin (Negative) Urine Urobilinogen (0.2) mg/dL Ur Leukocyte Esterase (Negative) U Hyaline Cast (Auto) (0-2) /LPF Urine Microscopic RBC (0-5) /HPF Urine Microscopic WBC (0-5) /HPF Ur Epithelial Cells (None Seen) /HPF Urine Bacteria (None Seen) /HPF Urine Culture Reflexed (NO) Ethyl Alcohol (0-10) mg/dL Slides for Path Review 08/07/24 08/07/24 08/07/24 Range/Units 18:44 19:35 20:28 WBC (3.98-10.04) x10^3/uL RBC (3.93-5.22) x10^6/uL Hgb (11.2-15.7) g/dL Hct (34.1-44.9) % MCV (79.4-94.8) fL MCH (25.6-32.2) pg MCHC (32.2-35.5) g/dL RDW (11.7-14.4) % Plt Count (182-369) x10^3/uL MPV (9.4-12.3) fL Gran % (34.0-71.1) % Immature Gran % (Auto) (0.001-0.429) % Nucleat RBC Rel Count (0.00-0.2) % Eos # (Auto) (0.04-0.36) x10^3/uL Immature Gran # (Auto) (0.001-0.031) x10^3u/L Absolute Lymphs (auto) (1.18-3.74) x10^3/uL Absolute Monos (auto) (0.24-0.86) x10^3/uL Absolute Nucleated RBC (0.00-0.012) x10^3u/L Lymphocytes % (19.3-51.7) % Monocytes % (4.7-12.5) % Eosinophils % (0.7-5.8) % Basophils % (0.1-1.2) % Absolute Granulocytes (1.56-6.13) x10^3/uL Basophils # (0.01-0.08) x10^3/uL Puncture Site pCO2 (35-45) mmHg pO2 (75-100) mmHg pO2/FiO2 Ratio % Base Excess (-2.0-2.0) O2 Saturation (94-100) g/dF ABG pH (7.35-7.45) ABG HCO3 (22-28) ABG O2 Sat (Measured) (95-100) % Bobby Test VBG pH (7.32-7.42) VBG pCO2 at Pat Temp (42-55) mm/Hg VBG pO2 at Pat Temp (25-40) mm/Hg VBG HCO3 (22-28) meq/L VBG O2 Sat (Nain) (95-100) VBG Base Excess (-2.0-2.0) VBG Hemoglobin VBG Carboxyhemoglobin (0.0-6.9) % T HGB A-a Gradient a/A Ratio Hemoglobin Carboxyhemoglobin (0.0-6.9) % THgb Methemoglobin (1.4-1.5) % POC Potassium (3.5-5.1) Temperature C POC O2 Flow Rate % Sodium (135-145) mmol/L Potassium (3.5-5.1) mmol/L Chloride (98-107) mmol/L Carbon Dioxide (22-30) mmol/L Anion Gap (5-15) MEQ/L BUN (7-17) mg/dL Creatinine (0.52-1.04) mg/dL Estimated GFR ML/MIN Glucose (74-106) mg/dL POC Glucometer 209 H 167 H 172 H (74 to 106) mg/dL Lactic Acid (0.4-2.0) Calcium (8.4-10.2) mg/dL Phosphorus (2.5-4.5) mg/dL Magnesium (1.6-2.3) mg/dL Total Bilirubin (0.2-1.3) mg/dL AST (14-36) U/L ALT (0-35) U/L Alkaline Phosphatase (38-126) U/L Serum Total Protein (6.3-8.2) g/dL Albumin (3.5-5.0) g/dL Urine Color (Yellow) Urine Appearance (Clear) Urine pH (4.6-8.0) Ur Specific [place] (1.005-1.030) Urine Protein (Negative) Urine Glucose (UA) (Negative) mg/dL Urine Ketones (Negative) Urine Blood (Negative) Urine Nitrite (Negative) Urine Bilirubin (Negative) Urine Urobilinogen (0.2) mg/dL Ur Leukocyte Esterase (Negative) U Hyaline Cast (Auto) (0-2) /LPF Urine Microscopic RBC (0-5) /HPF Urine Microscopic WBC (0-5) /HPF Ur Epithelial Cells (None Seen) /HPF Urine Bacteria (None Seen) /HPF Urine Culture Reflexed (NO) Ethyl Alcohol (0-10) mg/dL Slides for Path Review 06/16/24 06/16/24 06/16/24 Range/Units 21:13 22:05 23:08 WBC (3.98-10.04) x10^3/uL RBC (3.93-5.22) x10^6/uL Hgb (11.2-15.7) g/dL Hct (34.1-44.9) % MCV (79.4-94.8) fL MCH (25.6-32.2) pg MCHC (32.2-35.5) g/dL RDW (11.7-14.4) % Plt Count (182-369) x10^3/uL MPV (9.4-12.3) fL Gran % (34.0-71.1) % Immature Gran % (Auto) (0.001-0.429) % Nucleat RBC Rel Count (0.00-0.2) % Eos # (Auto) (0.04-0.36) x10^3/uL Immature Gran # (Auto) (0.001-0.031) x10^3u/L Absolute Lymphs (auto) (1.18-3.74) x10^3/uL Absolute Monos (auto) (0.24-0.86) x10^3/uL Absolute Nucleated RBC (0.00-0.012) x10^3u/L Lymphocytes % (19.3-51.7) % Monocytes % (4.7-12.5) % Eosinophils % (0.7-5.8) % Basophils % (0.1-1.2) % Absolute Granulocytes (1.56-6.13) x10^3/uL Basophils # (0.01-0.08) x10^3/uL Puncture Site pCO2 (35-45) mmHg pO2 (75-100) mmHg pO2/FiO2 Ratio % Base Excess (-2.0-2.0) O2 Saturation (94-100) g/dF ABG pH (7.35-7.45) ABG HCO3 (22-28) ABG O2 Sat (Measured) (95-100) % Bobby Test VBG pH (7.32-7.42) VBG pCO2 at Pat Temp (42-55) mm/Hg VBG pO2 at Pat Temp (25-40) mm/Hg VBG HCO3 (22-28) meq/L VBG O2 Sat (Nain) (95-100) VBG Base Excess (-2.0-2.0) VBG Hemoglobin VBG Carboxyhemoglobin (0.0-6.9) % T HGB A-a Gradient a/A Ratio Hemoglobin Carboxyhemoglobin (0.0-6.9) % THgb Methemoglobin (1.4-1.5) % POC Potassium (3.5-5.1) Temperature C POC O2 Flow Rate % Sodium 137 (135-145) mmol/L Potassium 3.7 (3.5-5.1) mmol/L Chloride 112 H (98-107) mmol/L Carbon Dioxide 18 L (22-30) mmol/L Anion Gap 11.0 (5-15) MEQ/L BUN 26 H (7-17) mg/dL Creatinine 0.90 (0.52-1.04) mg/dL Estimated GFR 76.0 ML/MIN Glucose 169 H (74-106) mg/dL POC Glucometer 174 H 129 H (74 to 106) mg/dL Lactic Acid (0.4-2.0) Calcium 8.9 (8.4-10.2) mg/dL Phosphorus (2.5-4.5) mg/dL Magnesium (1.6-2.3) mg/dL Total Bilirubin (0.2-1.3) mg/dL AST (14-36) U/L ALT (0-35) U/L Alkaline Phosphatase (38-126) U/L Serum Total Protein (6.3-8.2) g/dL Albumin (3.5-5.0) g/dL Urine Color (Yellow) Urine Appearance (Clear) Urine pH (4.6-8.0) Ur Specific [place] (1.005-1.030) Urine Protein (Negative) Urine Glucose (UA) (Negative) mg/dL Urine Ketones (Negative) Urine Blood (Negative) Urine Nitrite (Negative) Urine Bilirubin (Negative) Urine Urobilinogen (0.2) mg/dL Ur Leukocyte Esterase (Negative) U Hyaline Cast (Auto) (0-2) /LPF Urine Microscopic RBC (0-5) /HPF Urine Microscopic WBC (0-5) /HPF Ur Epithelial Cells (None Seen) /HPF Urine Bacteria (None Seen) /HPF Urine Culture Reflexed (NO) Ethyl Alcohol (0-10) mg/dL Slides for Path Review 06/17/24 06/17/24 06/17/24 Range/Units 00:13 01:04 02:13 WBC (3.98-10.04) x10^3/uL RBC (3.93-5.22) x10^6/uL Hgb (11.2-15.7) g/dL Hct (34.1-44.9) % MCV (79.4-94.8) fL MCH (25.6-32.2) pg MCHC (32.2-35.5) g/dL RDW (11.7-14.4) % Plt Count (182-369) x10^3/uL MPV (9.4-12.3) fL Gran % (34.0-71.1) % Immature Gran % (Auto) (0.001-0.429) % Nucleat RBC Rel Count (0.00-0.2) % Eos # (Auto) (0.04-0.36) x10^3/uL Immature Gran # (Auto) (0.001-0.031) x10^3u/L Absolute Lymphs (auto) (1.18-3.74) x10^3/uL Absolute Monos (auto) (0.24-0.86) x10^3/uL Absolute Nucleated RBC (0.00-0.012) x10^3u/L Lymphocytes % (19.3-51.7) % Monocytes % (4.7-12.5) % Eosinophils % (0.7-5.8) % Basophils % (0.1-1.2) % Absolute Granulocytes (1.56-6.13) x10^3/uL Basophils # (0.01-0.08) x10^3/uL Puncture Site pCO2 (35-45) mmHg pO2 (75-100) mmHg pO2/FiO2 Ratio % Base Excess (-2.0-2.0) O2 Saturation (94-100) g/dF ABG pH (7.35-7.45) ABG HCO3 (22-28) ABG O2 Sat (Measured) (95-100) % Bobby Test VBG pH (7.32-7.42) VBG pCO2 at Pat Temp (42-55) mm/Hg VBG pO2 at Pat Temp (25-40) mm/Hg VBG HCO3 (22-28) meq/L VBG O2 Sat (Nain) (95-100) VBG Base Excess (-2.0-2.0) VBG Hemoglobin VBG Carboxyhemoglobin (0.0-6.9) % T HGB A-a Gradient a/A Ratio Hemoglobin Carboxyhemoglobin (0.0-6.9) % THgb Methemoglobin (1.4-1.5) % POC Potassium (3.5-5.1) Temperature C POC O2 Flow Rate % Sodium (135-145) mmol/L Potassium (3.5-5.1) mmol/L Chloride (98-107) mmol/L Carbon Dioxide (22-30) mmol/L Anion Gap (5-15) MEQ/L BUN (7-17) mg/dL Creatinine (0.52-1.04) mg/dL Estimated GFR ML/MIN Glucose (74-106) mg/dL POC Glucometer 120 H 153 H 197 H (74 to 106) mg/dL Lactic Acid (0.4-2.0) Calcium (8.4-10.2) mg/dL Phosphorus (2.5-4.5) mg/dL Magnesium (1.6-2.3) mg/dL Total Bilirubin (0.2-1.3) mg/dL AST (14-36) U/L ALT (0-35) U/L Alkaline Phosphatase (38-126) U/L Serum Total Protein (6.3-8.2) g/dL Albumin (3.5-5.0) g/dL Urine Color (Yellow) Urine Appearance (Clear) Urine pH (4.6-8.0) Ur Specific [place] (1.005-1.030) Urine Protein (Negative) Urine Glucose (UA) (Negative) mg/dL Urine Ketones (Negative) Urine Blood (Negative) Urine Nitrite (Negative) Urine Bilirubin (Negative) Urine Urobilinogen (0.2) mg/dL Ur Leukocyte Esterase (Negative) U Hyaline Cast (Auto) (0-2) /LPF Urine Microscopic RBC (0-5) /HPF Urine Microscopic WBC (0-5) /HPF Ur Epithelial Cells (None Seen) /HPF Urine Bacteria (None Seen) /HPF Urine Culture Reflexed (NO) Ethyl Alcohol (0-10) mg/dL Slides for Path Review 06/17/24 06/17/24 06/17/24 Range/Units 02:16 02:16 03:15 WBC 14.1 H (3.98-10.04) x10^3/uL RBC 3.58 L (3.93-5.22) x10^6/uL Hgb 10.7 L (11.2-15.7) g/dL Hct 32.9 L (34.1-44.9) % MCV 91.9 (79.4-94.8) fL MCH 29.9 (25.6-32.2) pg MCHC 32.5 (32.2-35.5) g/dL RDW 12.7 (11.7-14.4) % Plt Count 244 D (182-369) x10^3/uL MPV 9.3 L (9.4-12.3) fL Gran % 78.2 H (34.0-71.1) % Immature Gran % (Auto) 0.5 H (0.001-0.429) % Nucleat RBC Rel Count 0.0 (0.00-0.2) % Eos # (Auto) 0 L (0.04-0.36) x10^3/uL Immature Gran # (Auto) 0.07 H (0.001-0.031) x10^3u/L Absolute Lymphs (auto) 1.65 (1.18-3.74) x10^3/uL Absolute Monos (auto) 1.33 H (0.24-0.86) x10^3/uL Absolute Nucleated RBC 0.00 (0.00-0.012) x10^3u/L Lymphocytes % 11.7 L (19.3-51.7) % Monocytes % 9.4 (4.7-12.5) % Eosinophils % 0.0 L (0.7-5.8) % Basophils % 0.2 (0.1-1.2) % Absolute Granulocytes 11.04 H (1.56-6.13) x10^3/uL Basophils # 0.03 (0.01-0.08) x10^3/uL Puncture Site pCO2 (35-45) mmHg pO2 (75-100) mmHg pO2/FiO2 Ratio % Base Excess (-2.0-2.0) O2 Saturation (94-100) g/dF ABG pH (7.35-7.45) ABG HCO3 (22-28) ABG O2 Sat (Measured) (95-100) % Bobby Test VBG pH (7.32-7.42) VBG pCO2 at Pat Temp (42-55) mm/Hg VBG pO2 at Pat Temp (25-40) mm/Hg VBG HCO3 (22-28) meq/L VBG O2 Sat (Nain) (95-100) VBG Base Excess (-2.0-2.0) VBG Hemoglobin VBG Carboxyhemoglobin (0.0-6.9) % T HGB A-a Gradient a/A Ratio Hemoglobin Carboxyhemoglobin (0.0-6.9) % THgb Methemoglobin (1.4-1.5) % POC Potassium (3.5-5.1) Temperature C POC O2 Flow Rate % Sodium 137 (135-145) mmol/L Potassium 4.7 D (3.5-5.1) mmol/L Chloride 113 H (98-107) mmol/L Carbon Dioxide 17 L (22-30) mmol/L Anion Gap 12.9 (5-15) MEQ/L BUN 24 H (7-17) mg/dL Creatinine 0.84 (0.52-1.04) mg/dL Estimated GFR 82.5 ML/MIN Glucose 205 H (74-106) mg/dL POC Glucometer 238 H (74 to 106) mg/dL Lactic Acid (0.4-2.0) Calcium 8.7 (8.4-10.2) mg/dL Phosphorus (2.5-4.5) mg/dL Magnesium (1.6-2.3) mg/dL Total Bilirubin 2.60 H (0.2-1.3) mg/dL AST 17 (14-36) U/L ALT 15 (0-35) U/L Alkaline Phosphatase 92 (38-126) U/L Serum Total Protein 5.6 L (6.3-8.2) g/dL Albumin 3.1 L (3.5-5.0) g/dL Urine Color (Yellow) Urine Appearance (Clear) Urine pH (4.6-8.0) Ur Specific [place] (1.005-1.030) Urine Protein (Negative) Urine Glucose (UA) (Negative) mg/dL Urine Ketones (Negative) Urine Blood (Negative) Urine Nitrite (Negative) Urine Bilirubin (Negative) Urine Urobilinogen (0.2) mg/dL Ur Leukocyte Esterase (Negative) U Hyaline Cast (Auto) (0-2) /LPF Urine Microscopic RBC (0-5) /HPF Urine Microscopic WBC (0-5) /HPF Ur Epithelial Cells (None Seen) /HPF Urine Bacteria (None Seen) /HPF Urine Culture Reflexed (NO) Ethyl Alcohol (0-10) mg/dL Slides for Path Review 06/17/24 Range/Units 04:11 WBC (3.98-10.04) x10^3/uL RBC (3.93-5.22) x10^6/uL Hgb (11.2-15.7) g/dL Hct (34.1-44.9) % MCV (79.4-94.8) fL MCH (25.6-32.2) pg MCHC (32.2-35.5) g/dL RDW (11.7-14.4) % Plt Count (182-369) x10^3/uL MPV (9.4-12.3) fL Gran % (34.0-71.1) % Immature Gran % (Auto) (0.001-0.429) % Nucleat RBC Rel Count (0.00-0.2) % Eos # (Auto) (0.04-0.36) x10^3/uL Immature Gran # (Auto) (0.001-0.031) x10^3u/L Absolute Lymphs (auto) (1.18-3.74) x10^3/uL Absolute Monos (auto) (0.24-0.86) x10^3/uL Absolute Nucleated RBC (0.00-0.012) x10^3u/L Lymphocytes % (19.3-51.7) % Monocytes % (4.7-12.5) % Eosinophils % (0.7-5.8) % Basophils % (0.1-1.2) % Absolute Granulocytes (1.56-6.13) x10^3/uL Basophils # (0.01-0.08) x10^3/uL Puncture Site pCO2 (35-45) mmHg pO2 (75-100) mmHg pO2/FiO2 Ratio % Base Excess (-2.0-2.0) O2 Saturation (94-100) g/dF ABG pH (7.35-7.45) ABG HCO3 (22-28) ABG O2 Sat (Measured) (95-100) % Bobby Test VBG pH (7.32-7.42) VBG pCO2 at Pat Temp (42-55) mm/Hg VBG pO2 at Pat Temp (25-40) mm/Hg VBG HCO3 (22-28) meq/L VBG O2 Sat (Nain) (95-100) VBG Base Excess (-2.0-2.0) VBG Hemoglobin VBG Carboxyhemoglobin (0.0-6.9) % T HGB A-a Gradient a/A Ratio Hemoglobin Carboxyhemoglobin (0.0-6.9) % THgb Methemoglobin (1.4-1.5) % POC Potassium (3.5-5.1) Temperature C POC O2 Flow Rate % Sodium (135-145) mmol/L Potassium (3.5-5.1) mmol/L Chloride (98-107) mmol/L Carbon Dioxide (22-30) mmol/L Anion Gap (5-15) MEQ/L BUN (7-17) mg/dL Creatinine (0.52-1.04) mg/dL Estimated GFR ML/MIN Glucose (74-106) mg/dL POC Glucometer 199 H (74 to 106) mg/dL Lactic Acid (0.4-2.0) Calcium (8.4-10.2) mg/dL Phosphorus (2.5-4.5) mg/dL Magnesium (1.6-2.3) mg/dL Total Bilirubin (0.2-1.3) mg/dL AST (14-36) U/L ALT (0-35) U/L Alkaline Phosphatase (38-126) U/L Serum Total Protein (6.3-8.2) g/dL Albumin (3.5-5.0) g/dL Urine Color (Yellow) Urine Appearance (Clear) Urine pH (4.6-8.0) Ur Specific [place] (1.005-1.030) Urine Protein (Negative) Urine Glucose (UA) (Negative) mg/dL Urine Ketones (Negative) Urine Blood (Negative) Urine Nitrite (Negative) Urine Bilirubin (Negative) Urine Urobilinogen (0.2) mg/dL Ur Leukocyte Esterase (Negative) U Hyaline Cast (Auto) (0-2) /LPF Urine Microscopic RBC (0-5) /HPF Urine Microscopic WBC (0-5) /HPF Ur Epithelial Cells (None Seen) /HPF Urine Bacteria (None Seen) /HPF Urine Culture Reflexed (NO) Ethyl Alcohol (0-10) mg/dL Slides for Path Review Radiology Exams: Radiology Procedures Category Date Time Status HEAD WITHOUT CONTRAST [CT] Stat Exams 06/16/24 12:26 Completed Assessment/Plan (1) Diabetic ketoacidosis Current Visit: Yes Status: Acute Assessment & Plan: -Normally manages diabetes with insulin pump at home - 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, replacement being sent- should arrive today -3L fluid received in ED -Insulin drip per DKA protocol -BMP Q4H -Potassium replacement per protocol -Bicarb replacement only if pH is <6.9 -CBG check Q1H -Once controlled, patient to bring in insulin pump and restart -NPO 06/17: -Resume insulin pump when available and start ADA diet per protocol -replenish phos -Possible d/c this afternoon if labs improve/tolerating diet Code(s): E11.10 - TYPE 2 DIABETES MELLITUS WITH KETOACIDOSIS WITHOUT COMA (2) Type 1 diabetes Current Visit: Yes Status: Acute Assessment & Plan: -DKA on arrival, see plan -diagnosed 5 years ago - on insulin pump (3) HTN (hypertension) Current Visit: Yes Status: Acute Assessment & Plan: -stable- Code(s): I10 - ESSENTIAL (PRIMARY) HYPERTENSION (4) Hypothyroid Current Visit: Yes Status: Acute Assessment & Plan: -continue levothyroxine Code(s): E03.9 - HYPOTHYROIDISM, UNSPECIFIED (5) Anxiety Current Visit: Yes Status: Acute Assessment & Plan: -continue paxil Code(s): F41.9 - ANXIETY DISORDER, UNSPECIFIED (6) Panic disorder Current Visit: Yes Status: Acute Assessment & Plan: -continue home paxil Code(s): F41.0 - PANIC DISORDER [EPISODIC PAROXYSMAL ANXIETY] (7) Congenital heart defect Current Visit: Yes Status: Acute Assessment & Plan: -noted, per pt report - unable to elaborate any further details (8) Asthma Current Visit: Yes Status: Acute Assessment & Plan: -RT eval -Nebs/inh prn ##Leukocytosis -Reactive vs infective process -UA/CXR negative for acute findings -No fever -TBili is elevated - will get US RUQ VTE: lovenox PPI: protonix Dispo 1-2 days Code(s): E11.10 - TYPE 2 DIABETES MELLITUS WITH KETOACIDOSIS WITHOUT COMA (2) Type 1 diabetes Current Visit: Yes Status: Acute (3) HTN (hypertension) Current Visit: Yes Status: Acute Code(s): I10 - ESSENTIAL (PRIMARY) HYPERTENSION (4) Hypothyroid Current Visit: Yes Status: Acute Code(s): E03.9 - HYPOTHYROIDISM, UNSPECIFIED (5) Anxiety Current Visit: Yes Status: Acute Code(s): F41.9 - ANXIETY DISORDER, UNSPECIFIED (6) Panic disorder Current Visit: Yes Status: Acute Code(s): F41.0 - PANIC DISORDER [EPISODIC PAROXYSMAL ANXIETY] (7) Congenital heart defect Current Visit: Yes Status: Acute (8) Asthma Current Visit: Yes Status: Acute Code(s): J45.909 - UNSPECIFIED ASTHMA, UNCOMPLICATED
[2024-06-17 07:08] LABS: ANION GAP 11.2 MEQ/L (5-15); Calcium 8.8 mg/dL (8.4-10.2); Creatinine 1 0.8 mg/dL (0.52-1.04); EST GLOMERULAR FILTRATION RATE 87.5 ML/MIN; Potassium 3.5 mmol/L (3.5-5.1)
[2024-06-17] MEDS ORDERED: MEDICATION INTERVENTION MC SCH (07:30)
[2024-06-17] MEDS: TYLENOL 325 MG PO PRN (07:42)
[2024-06-17] MEDS: Paxil 20 MG PO SCH (08:52)
[2024-06-17] MEDS: SYNTHROID 100 MCG PO SCH (08:52)
[2024-06-17] MEDS: ECOTRIN 81 MG PO SCH (08:52)
[2024-06-17] MEDS: Neutra-Phos Packet PO ONE ×2 (08:53→19:21)
[2024-06-17] MEDS: ENOXAPARIN SODIUM SQ SCH (08:56)
[2024-06-17] MEDS ORDERED: LEVOTHYROXINE SODIUM 200 MCG PO SCH (10:00)
[2024-06-17 10:33] LABS: ALBUMIN 2.9 g/dL (3.5-5.0); ANION GAP 11.1 MEQ/L (5-15); BILIRUBIN,TOTAL 2.5 mg/dL (0.2-1.3); Calcium 8.6 mg/dL (8.4-10.2); Creatinine 1 0.74 mg/dL (0.52-1.04); EST GLOMERULAR FILTRATION RATE 96.1 ML/MIN; Total Protein 5.2 g/dL (6.3-8.2)
--- NOTE | 2024-06-17 12:09 | XRAY ---
Indication: Elevated bilirubin. Cholecystectomy. Two-dimensional right upper quadrant abdominal sonogram performed. Comparison: None Visualized liver and pancreas are homogeneous in echogenicity. No organomegaly or free fluid. Gallbladder surgically absent. Common bile duct measures 9.3 mm. No intrahepatic biliary distention. Right kidney measures 10.8 x 4.3 x 4.6 cm and sonographically unremarkable. Impression: Negative right upper quadrant sonogram.
[2024-06-17 14:52] LABS: ANION GAP 9.4 MEQ/L (5-15); Calcium 8.8 mg/dL (8.4-10.2); Creatinine 1 0.72 mg/dL (0.52-1.04); EST GLOMERULAR FILTRATION RATE 99.3 ML/MIN; Potassium 3.5 mmol/L (3.5-5.1)
[2024-06-17 18:29] LABS: ANION GAP 9.7 MEQ/L (5-15); Calcium 8.7 mg/dL (8.4-10.2); Creatinine 1 0.74 mg/dL (0.52-1.04); EST GLOMERULAR FILTRATION RATE 96.1 ML/MIN; PHOSPHOROUS 1.9 mg/dL (2.5-4.5); Potassium 4.3 mmol/L (3.5-5.1)
[2024-06-18 04:12] VITALS: TEMP 97.8
[2024-06-18 05:09] LABS: Absolute Neutrophil Ct (ANC) 3.83 x10^3/uL (1.56-6.13); BASOPHIL % 0.5 % (0.1-1.2); Basophil (Absolute #) 0.03 x10^3/uL (0.01-0.08); Eosinophil % 0.4 % (0.7-5.8); Eosinophil (Absolute #) 0.02 x10^3/uL (0.04-0.36); Hematocrit 31.5 % (34.1-44.9); Hemoglobin 10.3 g/dL (11.2-15.7); IMMATURE GRAN # 0.02 x10^3u/L (0.001-0.031); IMMATURE GRAN % 0.4 % (0.001-0.429); Lymphocyte (Absolute #) 1.43 x10^3/uL (1.18-3.74); Mean Cell Volume 90.3 fL (79.4-94.8); Mean Corpuscular Hemoglobin 29.5 pg (25.6-32.2); Mean Corpuscular Hgb Concent. 32.7 g/dL (32.2-35.5); Mean Platelet Volume 9.4 fL (9.4-12.3); Monocyte (Absolute #) 0.38 x10^3/uL (0.24-0.86); Monocytes % 6.7 % (4.7-12.5); Platelet Count 189 x10^3/uL (182-369); Red Blood Count 3.49 x10^6/uL (3.93-5.22); Red Cell Distribution Width 12.7 % (11.7-14.4); White Blood Count 5.7 x10^3/uL (3.98-10.04)
--- NOTE | 2024-06-18 05:27 | PCM.DS ---
Discharge Summary Date of Admission: 06/16/24 16:49 Date of Discharge: 06/18/24 Admitting Physician: WINSOME CALLAHAN MD Primary Care Provider: JUANY RUBALCAVA Allergies Allergies No Known Drug Allergies Allergy (Verified 06/16/24 17:04) Hospital Summary - Hospital Course Hospital Course: HPI: Ms. Beach is a 53 year old female with a pmhx of HLD, HTN, type 1 diabetes, hypothyroidism, anxiety, and panic disorder who presented to ED 06/16/24 via EMS with AMS and hyperglycemia. 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 The funnel coater is sending her a cutter operator helper which will be arriving any time now. Patient was seen in ED 06/15/24 after her glucometer was reading high. Patient's daughter stated that the patient was discharged to home on 06/15/2024 at approximately 9 PM from our emergency department. The clinical impression was hyperglycemia dyspnea nausea. Lab findings were consistent with DKA. Patient was discharged home. Today patient had several episodes of vomiting and became altered. Despite receiving 30 units of insulin at home, blood glucose levels were still greater than 400- thus prompting return to ED. CXR with no acute findings. CT head with no acute findings. Lab findings consistent with DKA. Patient received a total of 3L of IVF and 6 units of Humalin R in ED. Patient received IP treatment with an insulin drip per protocal and once lab stabilized she was restarted on her home insulin pump. Mentation now at baseline. It was noted that her TBili was elevated and downtrending-US abdomen is negative. WBC now wnl. Patient states she has all diabetic supplies and insulin. She will follow up with Tami Salguero (endocrinology) as OP. Discharge Note New Diagnosis:DKA New Medications: continue home insulin pump Follow Up: PCP/ Tami Salguero - assignment officer Latest Assessment & Plan (1) Diabetic ketoacidosis Current Visit: Yes Status: Acute Assessment & Plan: -Normally manages diabetes with insulin pump at home - cutter operator helper left in [place] where she resides, replacement being sent- should arrive today -3L fluid received in ED -Insulin drip per DKA protocol -BMP Q4H -Potassium replacement per protocol -Bicarb replacement only if pH is <6.9 -CBG check Q1H -Once controlled, patient to bring in insulin pump and restart -NPO 06/17: -Resume insulin pump when available and start ADA diet per protocol -replenish phos -Possible d/c this afternoon if labs improve/tolerating diet Code(s): E11.10 - TYPE 2 DIABETES MELLITUS WITH KETOACIDOSIS WITHOUT COMA (2) Type 1 diabetes Current Visit: Yes Status: Acute Assessment & Plan: -DKA on arrival, see plan -diagnosed 5 years ago - on insulin pump (3) HTN (hypertension) Current Visit: Yes Status: Acute Assessment & Plan: -stable- Code(s): I10 - ESSENTIAL (PRIMARY) HYPERTENSION (4) Hypothyroid Current Visit: Yes Status: Acute Assessment & Plan: -continue levothyroxine Code(s): E03.9 - HYPOTHYROIDISM, UNSPECIFIED (5) Anxiety Current Visit: Yes Status: Acute Assessment & Plan: -continue paxil Code(s): F41.9 - ANXIETY DISORDER, UNSPECIFIED (6) Panic disorder Current Visit: Yes Status: Acute Assessment & Plan: -continue home paxil Code(s): F41.0 - PANIC DISORDER [EPISODIC PAROXYSMAL ANXIETY] (7) Congenital heart defect Current Visit: Yes Status: Acute Assessment & Plan: -noted, per pt report - unable to elaborate any further details (8) Asthma Current Visit: Yes Status: Acute Assessment & Plan: -RT eval -Nebs/inh prn ##Leukocytosis -Reactive vs infective process -UA/CXR negative for acute findings -No fever -TBili is elevated - will get US RUQ VTE: lovenox PPI: protonix Dispo 1-2 days I spent 42 minutes [id number] with the patient on the day of discharge performing discharge exam, discussing hospital stay and discharge instructions with patient and caregivers, preparation of discharge records, prescriptions & referral forms and addressing any questions/concerns the patient had as documented above. - Vitals & Intake/Output Vital Signs: Vital Signs Temperature 97.8 F 06/18/24 04:01 Pulse Rate 62 06/18/24 05:00 Respiratory Rate 24 06/18/24 05:00 Blood Pressure 135/77 06/18/24 05:00 O2 Sat by Pulse Oximetry 97 06/18/24 05:00 Intake & Output: Intake & Output 06/15/24 06/16/24 06/17/24 08/09/24 11:59 11:59 11:59 11:59 Intake Total 3020 5764 Output Total 600 1500 Balance 2420 874 Weight 83.3 kg 88.9 kg - Lab Result Diagrams: 06/18/24 04:45 06/18/24 04:45 Lab Results-Last 24 Hrs: Lab Results-Last 24 Hours 06/17/24 06/17/24 06/17/24 Range/Units 06:10 06:12 06:14 WBC (3.98-10.04) x10^3/uL RBC (3.93-5.22) x10^6/uL Hgb (11.2-15.7) g/dL Hct (34.1-44.9) % MCV (79.4-94.8) fL MCH (25.6-32.2) pg MCHC (32.2-35.5) g/dL RDW (11.7-14.4) % Plt Count (182-369) x10^3/uL MPV (9.4-12.3) fL Gran % (34.0-71.1) % Immature Gran % (Auto) (0.001-0.429) % Nucleat RBC Rel Count (0.00-0.2) % Eos # (Auto) (0.04-0.36) x10^3/uL Immature Gran # (Auto) (0.001-0.031) x10^3u/L Absolute Lymphs (auto) (1.18-3.74) x10^3/uL Absolute Monos (auto) (0.24-0.86) x10^3/uL Absolute Nucleated RBC (0.00-0.012) x10^3u/L Lymphocytes % (19.3-51.7) % Monocytes % (4.7-12.5) % Eosinophils % (0.7-5.8) % Basophils % (0.1-1.2) % Absolute Granulocytes (1.56-6.13) x10^3/uL Basophils # (0.01-0.08) x10^3/uL Sodium 138 (135-145) mmol/L Potassium 3.5 D (3.5-5.1) mmol/L Chloride 113 H (98-107) mmol/L Carbon Dioxide 17 L (22-30) mmol/L Anion Gap 11.2 (5-15) MEQ/L BUN 22 H (7-17) mg/dL Creatinine 0.80 (0.52-1.04) mg/dL Estimated GFR 87.5 ML/MIN Glucose 166 H (74-106) mg/dL POC Glucometer 159 H (74 to 106) mg/dL Lactic Acid (0.4-2.0) Calcium 8.8 (8.4-10.2) mg/dL Phosphorus 1.3 L (2.5-4.5) mg/dL Total Bilirubin (0.2-1.3) mg/dL AST (14-36) U/L ALT (0-35) U/L Alkaline Phosphatase (38-126) U/L Serum Total Protein (6.3-8.2) g/dL Albumin (3.5-5.0) g/dL 06/17/24 06/17/24 06/17/24 Range/Units 07:09 08:02 08:58 WBC (3.98-10.04) x10^3/uL RBC (3.93-5.22) x10^6/uL Hgb (11.2-15.7) g/dL Hct (34.1-44.9) % MCV (79.4-94.8) fL MCH (25.6-32.2) pg MCHC (32.2-35.5) g/dL RDW (11.7-14.4) % Plt Count (182-369) x10^3/uL MPV (9.4-12.3) fL Gran % (34.0-71.1) % Immature Gran % (Auto) (0.001-0.429) % Nucleat RBC Rel Count (0.00-0.2) % Eos # (Auto) (0.04-0.36) x10^3/uL Immature Gran # (Auto) (0.001-0.031) x10^3u/L Absolute Lymphs (auto) (1.18-3.74) x10^3/uL Absolute Monos (auto) (0.24-0.86) x10^3/uL Absolute Nucleated RBC (0.00-0.012) x10^3u/L Lymphocytes % (19.3-51.7) % Monocytes % (4.7-12.5) % Eosinophils % (0.7-5.8) % Basophils % (0.1-1.2) % Absolute Granulocytes (1.56-6.13) x10^3/uL Basophils # (0.01-0.08) x10^3/uL Sodium (135-145) mmol/L Potassium (3.5-5.1) mmol/L Chloride (98-107) mmol/L Carbon Dioxide (22-30) mmol/L Anion Gap (5-15) MEQ/L BUN (7-17) mg/dL Creatinine (0.52-1.04) mg/dL Estimated GFR ML/MIN Glucose (74-106) mg/dL POC Glucometer 152 H 132 H 143 H (74 to 106) mg/dL Lactic Acid (0.4-2.0) Calcium (8.4-10.2) mg/dL Phosphorus (2.5-4.5) mg/dL Total Bilirubin (0.2-1.3) mg/dL AST (14-36) U/L ALT (0-35) U/L Alkaline Phosphatase (38-126) U/L Serum Total Protein (6.3-8.2) g/dL Albumin (3.5-5.0) g/dL 06/17/24 06/17/24 06/17/24 Range/Units 09:16 09:55 10:14 WBC (3.98-10.04) x10^3/uL RBC (3.93-5.22) x10^6/uL Hgb (11.2-15.7) g/dL Hct (34.1-44.9) % MCV (79.4-94.8) fL MCH (25.6-32.2) pg MCHC (32.2-35.5) g/dL RDW (11.7-14.4) % Plt Count (182-369) x10^3/uL MPV (9.4-12.3) fL Gran % (34.0-71.1) % Immature Gran % (Auto) (0.001-0.429) % Nucleat RBC Rel Count (0.00-0.2) % Eos # (Auto) (0.04-0.36) x10^3/uL Immature Gran # (Auto) (0.001-0.031) x10^3u/L Absolute Lymphs (auto) (1.18-3.74) x10^3/uL Absolute Monos (auto) (0.24-0.86) x10^3/uL Absolute Nucleated RBC (0.00-0.012) x10^3u/L Lymphocytes % (19.3-51.7) % Monocytes % (4.7-12.5) % Eosinophils % (0.7-5.8) % Basophils % (0.1-1.2) % Absolute Granulocytes (1.56-6.13) x10^3/uL Basophils # (0.01-0.08) x10^3/uL Sodium 137 (135-145) mmol/L Potassium 4.0 (3.5-5.1) mmol/L Chloride 113 H (98-107) mmol/L Carbon Dioxide 17 L (22-30) mmol/L Anion Gap 11.1 (5-15) MEQ/L BUN 20 H (7-17) mg/dL Creatinine 0.74 (0.52-1.04) mg/dL Estimated GFR 96.1 ML/MIN Glucose 156 H (74-106) mg/dL POC Glucometer 159 H (74 to 106) mg/dL Lactic Acid 0.8 (0.4-2.0) Calcium 8.6 (8.4-10.2) mg/dL Phosphorus (2.5-4.5) mg/dL Total Bilirubin 2.50 H (0.2-1.3) mg/dL AST 16 (14-36) U/L ALT 14 (0-35) U/L Alkaline Phosphatase 82 (38-126) U/L Serum Total Protein 5.2 L (6.3-8.2) g/dL Albumin 2.9 L (3.5-5.0) g/dL 06/17/24 06/17/24 06/17/24 Range/Units 10:56 11:53 12:55 WBC (3.98-10.04) x10^3/uL RBC (3.93-5.22) x10^6/uL Hgb (11.2-15.7) g/dL Hct (34.1-44.9) % MCV (79.4-94.8) fL MCH (25.6-32.2) pg MCHC (32.2-35.5) g/dL RDW (11.7-14.4) % Plt Count (182-369) x10^3/uL MPV (9.4-12.3) fL Gran % (34.0-71.1) % Immature Gran % (Auto) (0.001-0.429) % Nucleat RBC Rel Count (0.00-0.2) % Eos # (Auto) (0.04-0.36) x10^3/uL Immature Gran # (Auto) (0.001-0.031) x10^3u/L Absolute Lymphs (auto) (1.18-3.74) x10^3/uL Absolute Monos (auto) (0.24-0.86) x10^3/uL Absolute Nucleated RBC (0.00-0.012) x10^3u/L Lymphocytes % (19.3-51.7) % Monocytes % (4.7-12.5) % Eosinophils % (0.7-5.8) % Basophils % (0.1-1.2) % Absolute Granulocytes (1.56-6.13) x10^3/uL Basophils # (0.01-0.08) x10^3/uL Sodium (135-145) mmol/L Potassium (3.5-5.1) mmol/L Chloride (98-107) mmol/L Carbon Dioxide (22-30) mmol/L Anion Gap (5-15) MEQ/L BUN (7-17) mg/dL Creatinine (0.52-1.04) mg/dL Estimated GFR ML/MIN Glucose (74-106) mg/dL POC Glucometer 140 H 152 H 150 H (74 to 106) mg/dL Lactic Acid (0.4-2.0) Calcium (8.4-10.2) mg/dL Phosphorus (2.5-4.5) mg/dL Total Bilirubin (0.2-1.3) mg/dL AST (14-36) U/L ALT (0-35) U/L Alkaline Phosphatase (38-126) U/L Serum Total Protein (6.3-8.2) g/dL Albumin (3.5-5.0) g/dL 06/17/24 06/17/24 06/17/24 Range/Units 14:00 14:06 18:15 WBC (3.98-10.04) x10^3/uL RBC (3.93-5.22) x10^6/uL Hgb (11.2-15.7) g/dL Hct (34.1-44.9) % MCV (79.4-94.8) fL MCH (25.6-32.2) pg MCHC (32.2-35.5) g/dL RDW (11.7-14.4) % Plt Count (182-369) x10^3/uL MPV (9.4-12.3) fL Gran % (34.0-71.1) % Immature Gran % (Auto) (0.001-0.429) % Nucleat RBC Rel Count (0.00-0.2) % Eos # (Auto) (0.04-0.36) x10^3/uL Immature Gran # (Auto) (0.001-0.031) x10^3u/L Absolute Lymphs (auto) (1.18-3.74) x10^3/uL Absolute Monos (auto) (0.24-0.86) x10^3/uL Absolute Nucleated RBC (0.00-0.012) x10^3u/L Lymphocytes % (19.3-51.7) % Monocytes % (4.7-12.5) % Eosinophils % (0.7-5.8) % Basophils % (0.1-1.2) % Absolute Granulocytes (1.56-6.13) x10^3/uL Basophils # (0.01-0.08) x10^3/uL Sodium 138 137 (135-145) mmol/L Potassium 3.5 4.3 D (3.5-5.1) mmol/L Chloride 113 H 112 H (98-107) mmol/L Carbon Dioxide 19 L 20 L (22-30) mmol/L Anion Gap 9.4 9.7 (5-15) MEQ/L BUN 17 13 (7-17) mg/dL Creatinine 0.72 0.74 (0.52-1.04) mg/dL Estimated GFR 99.3 96.1 ML/MIN Glucose 93 165 H (74-106) mg/dL POC Glucometer 105 (74 to 106) mg/dL Lactic Acid (0.4-2.0) Calcium 8.8 8.7 (8.4-10.2) mg/dL Phosphorus 1.9 L (2.5-4.5) mg/dL Total Bilirubin (0.2-1.3) mg/dL AST (14-36) U/L ALT (0-35) U/L Alkaline Phosphatase (38-126) U/L Serum Total Protein (6.3-8.2) g/dL Albumin (3.5-5.0) g/dL 06/18/24 Range/Units 04:45 WBC 5.7 (3.98-10.04) x10^3/uL RBC 3.49 L (3.93-5.22) x10^6/uL Hgb 10.3 L (11.2-15.7) g/dL Hct 31.5 L (34.1-44.9) % MCV 90.3 (79.4-94.8) fL MCH 29.5 (25.6-32.2) pg MCHC 32.7 (32.2-35.5) g/dL RDW 12.7 (11.7-14.4) % Plt Count 189 (182-369) x10^3/uL MPV 9.4 (9.4-12.3) fL Gran % 67.0 (34.0-71.1) % Immature Gran % (Auto) 0.4 (0.001-0.429) % Nucleat RBC Rel Count 0.0 (0.00-0.2) % Eos # (Auto) 0.02 L (0.04-0.36) x10^3/uL Immature Gran # (Auto) 0.02 (0.001-0.031) x10^3u/L Absolute Lymphs (auto) 1.43 (1.18-3.74) x10^3/uL Absolute Monos (auto) 0.38 (0.24-0.86) x10^3/uL Absolute Nucleated RBC 0.00 (0.00-0.012) x10^3u/L Lymphocytes % 25.0 (19.3-51.7) % Monocytes % 6.7 (4.7-12.5) % Eosinophils % 0.4 L (0.7-5.8) % Basophils % 0.5 (0.1-1.2) % Absolute Granulocytes 3.83 (1.56-6.13) x10^3/uL Basophils # 0.03 (0.01-0.08) x10^3/uL Sodium (135-145) mmol/L Potassium (3.5-5.1) mmol/L Chloride (98-107) mmol/L Carbon Dioxide (22-30) mmol/L Anion Gap (5-15) MEQ/L BUN (7-17) mg/dL Creatinine (0.52-1.04) mg/dL Estimated GFR ML/MIN Glucose (74-106) mg/dL POC Glucometer (74 to 106) mg/dL Lactic Acid (0.4-2.0) Calcium (8.4-10.2) mg/dL Phosphorus (2.5-4.5) mg/dL Total Bilirubin (0.2-1.3) mg/dL AST (14-36) U/L ALT (0-35) U/L Alkaline Phosphatase (38-126) U/L Serum Total Protein (6.3-8.2) g/dL Albumin (3.5-5.0) g/dL Micro Results-Entire Visit: Accuchecks Date 06/17/24 Date 06/17/24 Date 06/17/24 Date 06/17/24 Date 06/17/24 Date 06/17/24 Date 06/17/24 Date 06/17/24 Date 06/17/24 Date 06/17/24 Date 06/17/24 Date 06/17/24 - Radiology Exams Ordered Rad Exams-Entire Visit: Radiology Procedures Category Date Time Status ABDOMINAL-LIMITED [US] Routine Exams 06/17/24 10:36 Completed HEAD WITHOUT CONTRAST [CT] Stat Exams 06/16/24 12:26 Completed Discharge Exam General Appearance: no apparent distress Neurologic Exam: alert, oriented x 3, cooperative Eye Exam: PERRL Ears, Nose, Throat Exam: normal ENT inspection, moist mucous membranes Neck Exam: normal inspection Respiratory Exam: normal breath sounds, lungs clear Cardiovascular Exam: regular rate/rhythm, normal heart sounds Gastrointestinal/Abdomen Exam: soft, normal bowel sounds Pelvic Exam: deferred Rectal Exam: deferred Back Exam: normal inspection Extremity Exam: normal inspection Skin Exam: normal color Final Diagnosis/Problem List - Final Discharge Diagnosis/Problem (1) Diabetic ketoacidosis Current Visit: Yes Status: Resolved Code(s): E11.10 - TYPE 2 DIABETES MELLITUS WITH KETOACIDOSIS WITHOUT COMA (2) Type 1 diabetes Current Visit: Yes Status: Chronic (3) HTN (hypertension) Current Visit: Yes Status: Chronic Code(s): I10 - ESSENTIAL (PRIMARY) HYPERTENSION (4) Hypothyroid Current Visit: Yes Status: Chronic Code(s): E03.9 - HYPOTHYROIDISM, UNSPECIFIED (5) Anxiety Current Visit: Yes Status: Chronic Code(s): F41.9 - ANXIETY DISORDER, UNSPECIFIED (6) Panic disorder Current Visit: Yes Status: Chronic Code(s): F41.0 - PANIC DISORDER [EPISODIC PAROXYSMAL ANXIETY] (7) Congenital heart defect Current Visit: Yes Status: Chronic (8) Asthma Current Visit: Yes Status: Chronic Code(s): J45.909 - UNSPECIFIED ASTHMA, UNCOMPLICATED (9) Insulin pump in place Current Visit: Yes Status: Acute Code(s): Z96.41 - PRESENCE OF INSULIN PUMP (EXTERNAL) (INTERNAL) - Discharge Disposition: Home, Self-Care Condition: Good Prescriptions: Continue Paroxetine HCl 20 mg [Paxil 20 MG] 30 mg PO DAILY Levothyroxine Sodium [Euthyrox] 200 mcg PO DAILY Insulin Lispro [Humalog] 0 unit SQ UD Hydrocodone/Acetaminophen [Hydrocodone-Acetamin 5-325 mg] 1 tab PO Q6H Evolocumab [Repatha Syringe] 140 mg SQ UD Tirzepatide [Mounjaro] 12.5 mg SQ WEEKLY Ondansetron ODT 4 MG [Zofran Odt 4 mg] 4 mg PO Q6H PRN PRN #10 tablet PRN Reason: Nausea Aspirin [Ecotrin] 81 mg PO DAILY Cholecalciferol (Vitamin D3) [Vitamin D3] 0 mg PO DAILY Follow up with: TAMI SALGUERO NP [NON-STAFF PHY W/O PRIVILEGES] - 06/22/24 4:30 pm JUANY RUBALCAVA [Primary Care Provider] - 06/23/24 9:00 am
[2024-06-18 05:38] LABS: ANION GAP 9.6 MEQ/L (5-15); BILIRUBIN,TOTAL 1.5 mg/dL (0.2-1.3); Calcium 8.7 mg/dL (8.4-10.2); Creatinine 1 0.64 mg/dL (0.52-1.04); Potassium 3.8 mmol/L (3.5-5.1); Total Protein 5.4 g/dL (6.3-8.2)
[2024-06-18 11:05] VITALS: BP 133/83; PULSE 62; RESP 20; O2SAT 98
== END 2024-06-18 12:17 | disposition home or self-care (01) | DRG 639 ==
LOC: ED 11:36 → OBSVTOIN 16:49 → ICU 16:49
PROVIDERS: ADMIT Internal Medicine; ATTEND Internal Medicine
DX: E10.10 Type 1 diabetes mellitus with ketoacidosis without coma (principal); I10 Essential (primary) hypertension; E03.9 Hypothyroidism, unspecified; F41.9 Anxiety disorder, unspecified; F41.0 Panic disorder [episodic paroxysmal anxiety]; Q24.9 Congenital malformation of heart, unspecified; J45.909 Unspecified asthma, uncomplicated; D72.829 Elevated white blood cell count, unspecified; E78.5 Hyperlipidemia, unspecified; Z96.41 Presence of insulin pump (external) (internal); Z79.899 Other long term (current) drug therapy
CPT/HCPCS: 36000; 36415; 36600; 70450; 76705; 80048; 80053; 81001; 82077; 82375; 82803; 82805; 82947; 83605; 83735; 84100; 85025; 93041; 94760; 96360; 96374; 99285; 99291; J1650; J1815; J3480; A9270-GY